=== PATIENT | male | born 1950 | race Caucasian/White ===

== ENCOUNTER 2021-07-24 09:52 | Outpatient (REF) | payer MEDICARE, BC, SELFPAY ==
--- NOTE | ~2021-07-24 | XR_ITS ---
EXAMINATION: CHEST AND LUMBAR SPINE. CLINICAL INFORMATION: Shortness of breath. COMPARISON: None TECHNIQUE: Chest 2 views. Lumbar spine 3 views. FINDINGS: Chest: The lungs are well-expanded and clear. The heart size and pulmonary vascularity is normal. No gross bony abnormality seen. Lumbar spine: There is normal lumbar lordosis. There is mild loss of L1 vertebral height. Rest of the vertebral heights are normal. There is loss of L5-S1 disc height. Mild lateral spondylosis at L3-L4 disc level is noted. XR/XR chest 1V IMPRESSION: Unremarkable chest exam. Minimal the disc changes L5-S1 disc level. Mild superior endplate deformity L1 vertebra of indeterminate age. No lytic or sclerotic process seen.
--- NOTE | ~2021-07-24 | XR_ITS ---
EXAMINATION: XR BILATERAL HIPS WITH AP PELVIS CLINICAL INFORMATION: Left hip pain. COMPARISON: None TECHNIQUE: AP and frog-leg lateral views of each hip and an AP view of the pelvis. FINDINGS: There is mild to moderate osteophytes in both hips, characterized by marginal osteophytes and medial joint space narrowing with subarticular sclerosis. There is borderline coxa vara in the proximal femurs bilaterally. No acute fractures. SI joints and pubic symphysis are normal. Mild degenerative spondylosis in the lower lumbar spine. There is a 1.4 cm focus of calcification at the right ischial tuberosity. Bone mineralization is normal. XR/XR hips SATYA min 3V IMPRESSION: Mild to moderate osteochondritis in both hips. A 1.4 cm focus of calcific tendinitis at the hamstring tendon origin on the right ischial tuberosity.
--- NOTE | ~2021-07-24 | XR_ITS ---
EXAMINATION: CHEST AND LUMBAR SPINE. CLINICAL INFORMATION: Shortness of breath. COMPARISON: None TECHNIQUE: Chest 2 views. Lumbar spine 3 views. FINDINGS: Chest: The lungs are well-expanded and clear. The heart size and pulmonary vascularity is normal. No gross bony abnormality seen. Lumbar spine: There is normal lumbar lordosis. There is mild loss of L1 vertebral height. Rest of the vertebral heights are normal. There is loss of L5-S1 disc height. Mild lateral spondylosis at L3-L4 disc level is noted. XR/XR lumbar spine 2-3V IMPRESSION: Unremarkable chest exam. Minimal the disc changes L5-S1 disc level. Mild superior endplate deformity L1 vertebra of indeterminate age. No lytic or sclerotic process seen.
[2021-07-24 10:50] LABS: Appearance Urine CLEAR; Color Urine YELLOW; Glucose Urine UA NEG (NEG); Leukocyte Esterase Urine NEG (NEG); Nitrite Urine NEG (NEG); Urine Blood NEG (NEG); Urine Ketones NEG (NEG); Urine Protein NEG (NEG-TRACE)
[2021-07-24 10:51] LABS: Hematocrit 45.6 % (42.0-52.0); Hemoglobin 15.2 g/dl (14.0-18.0); Mean Corpuscular HGB Conc 33.3 g/dl (31.0-36.0); Mean Corpuscular Volume 90.1 fL (80.0-98.0); Mean Platelet Volume 10.5 fL (9.4-12.4); Platelet Count 172 X10*3/uL (160-400); Red Blood Count 5.06 X10*6/uL (4.60-5.80); Red Cell Distribution Width 12.9 % (11.0-16.0); White Blood Count 6.3 X10*3/uL (4.8-10.8)
[2021-07-24 11:37] LABS: Alanine Aminotransferase 17 U/L (0-40); Albumin Level 4.3 g/dL (3.5-5.0); Alkaline Phosphatase 52 U/L (39-117); Anion Gap 9 (12-20); Aspartate Amino Transferase 19 U/L (5-37); Bilirubin Total 1.1 mg/dL (0.0-1.0); Blood Urea Nitrogen 13 mg/dL (9-16); Calcium 9.3 mg/dL (8.4-10.2); Carbon Dioxide 31 mmol/L (22-29); Chloride 105 mmol/L (96-108); Cholesterol 212 mg/dL; Estimated Glomerular Filt Rate > 60; Glucose Fasting 92 mg/dL (60-99); HDL Cholesterol 42 mg/dL; Iron 162 mcg/dL (45-160); LDL Cholesterol Calculated 149 mg/dl; Percent Iron Saturation 65 % (15-50); Potassium 4.3 mmol/L (3.3-5.1); Sodium 141 mmol/L (135-145); Total Iron Binding Capacity 250 mcg/dL (228-428); Total Protein 6.6 g/dL (6.5-8.0); Triglycerides 106 mg/dL; Unsaturated Iron Binding 88 ug/dL
[2021-07-24 11:46] LABS: Prostate Specific Antigen Scr 0.79 ng/mL (<0.05-4.0); TSH reflex Free T4 1.18 uIU/mL (0.32-4.0)
[2021-07-24 11:57] LABS: Folate 15.4 ng/mL (> or = 4.0); Vitamin B12 448 pg/mL (200-900)
[2021-07-24 12:18] LABS: RBC Urine 0 /HPF (0); WBC Urine 0 /HPF (0-4)
[2021-07-24 12:19] LABS: Squamous Epithelial Cell Urine TRACE /LPF
== END 2021-07-24 09:53 | disposition home or self-care (01) ==
LOC: HO.LAB 09:52
PROVIDERS: PCP Internal Medicine; Visit Provider Internal Medicine
DX: Z00.00 Encounter for general adult medical examination without abnormal findings (principal); Z12.5 Encounter for screening for malignant neoplasm of prostate; R06.02 Shortness of breath; M25.552 Pain in left hip; M54.50 Low back pain, unspecified; N40.0 Benign prostatic hyperplasia without lower urinary tract symptoms; G25.81 Restless legs syndrome
CPT/HCPCS: 36415; 71045; 72100; 73522; 80053; 80061; 81001; 82607; 82746; 83540; 84153; 84443; 85027

== ENCOUNTER 2021-08-21 15:50 | Outpatient (REF) | payer MEDICARE, SELFPAY ==
--- NOTE | ~2021-08-21 | US_ITS ---
EXAMINATION: US PELVIS LIMITED (BLADDER) CLINICAL INFORMATION: Benign prostatic hyperplasia without lower urinary tract symptoms. COMPARISON: None TECHNIQUE: Real-time imaging of the bladder. FINDINGS: BLADDER: Well distended and normal. Bilateral ureteral jets are not demonstrated. Prevoid bladder volume is 192. mL. Postvoid bladder volume is 7.0 mL. ADDITIONAL FINDINGS: Prostate volume is 42 mL US/US bladder IMPRESSION: No significant postvoid residual..
== END 2021-08-21 15:51 | disposition home or self-care (01) ==
LOC: HO.US 15:50
PROVIDERS: PCP Internal Medicine; Visit Provider Internal Medicine
DX: Z00.00 Encounter for general adult medical examination without abnormal findings (principal); J32.9 Chronic sinusitis, unspecified; N40.0 Benign prostatic hyperplasia without lower urinary tract symptoms
CPT/HCPCS: 76857

== ENCOUNTER 2021-09-03 12:51 | Outpatient (RCR) | payer MEDICARE, SELFPAY | END 2022-01-10 11:19 | disposition home or self-care (01) | LOC: HO.PTWFD 12:51 | PROVIDERS: Visit Provider Internal Medicine | DX: M25.552 Pain in left hip (principal) ==

== ENCOUNTER 2021-10-29 12:50 | Outpatient (REF) | payer MEDICARE, SELFPAY ==
[2021-11-02 16:25] LABS: Vitamin D 25-OH, D2 <4 ng/mL; Vitamin D 25-OH, D3 31 ng/mL; Vitamin D 25-OH, Total 31 ng/mL (30-100)
== END 2021-10-29 12:51 | disposition home or self-care (01) ==
LOC: HO.LAB 12:50
PROVIDERS: PCP Internal Medicine; Referring Provider Internal Medicine; Visit Provider Nurse Practitioner Family
DX: Z01.818 Encounter for other preprocedural examination (principal); N40.0 Benign prostatic hyperplasia without lower urinary tract symptoms; E55.9 Vitamin D deficiency, unspecified; R53.83 Other fatigue; K59.00 Constipation, unspecified
CPT/HCPCS: 36415; 82306; 84443; 99202

== ENCOUNTER 2021-11-08 13:42 | Outpatient (REF) | payer MEDICARE, SELFPAY | END 2021-11-08 13:43 | disposition home or self-care (01) | LOC: HO.LAB 13:42 | PROVIDERS: Visit Provider Otolaryngology | DX: J30.89 Other allergic rhinitis (principal) | CPT/HCPCS: 36415; 82785; 86003 ==

== ENCOUNTER 2021-12-27 13:00 | Outpatient (RCR) | payer MEDICARE, SELFPAY ==
[2021-12-13 11:21] VITALS: BP 112/68; PULSE 78; O2SAT 95
== END 2022-03-04 14:31 | disposition home or self-care (01) ==
LOC: HO.PTWFD 13:00
PROVIDERS: Visit Provider Internal Medicine
DX: M25.552 Pain in left hip (principal)
CPT/HCPCS: 97110; 97140; 97162

== ENCOUNTER → 2022-01-29 13:17 | Outpatient (BNVA) | payer MEDICARE, SELFPAY | PROVIDERS: PCP Internal Medicine; Referring Provider Nurse Practitioner Family; Visit Provider Internal Medicine | DX: Z01.810 Encounter for preprocedural cardiovascular examination (principal); R06.02 Shortness of breath; R07.2 Precordial pain | CPT/HCPCS: 93005; 99202 ==

== ENCOUNTER → 2022-02-18 13:33 | Outpatient (BNVA) | payer MEDICARE, SELFPAY | PROVIDERS: Visit Provider Urology | DX: N40.1 Benign prostatic hyperplasia with lower urinary tract symptoms (principal); Z79.899 Other long term (current) drug therapy | CPT/HCPCS: 51798; 99202 ==

== ENCOUNTER → 2022-03-10 10:26 | Outpatient (REF) | payer MEDICARE, SELFPAY ==
--- NOTE | 2022-03-10 10:28 | CA_ITS ---
Transthoracic Echocardiogram Patient (Last, First, Middle): Oswaldo Hernandez, Gender: Male Date of : 1950 Age: 71 Procedure Date: 03/10/2022 Procedure Type: Transthoracic Echocardiogram Location: OP Height: 187.96 cm Weight: 106.6 kg BSA: 2.33 m2 Heart Rate: bpm BP: 124 / 80 mmHg Solar System Designer: Referring MD: Prince Dumont MD Symptoms: Z01.810 - Encounter for preprocedural cardiovascular examination Study Quality: Fair, ADEQUATE W DEFINITY ECG Rhythm: Sinus Conclusions: - The left ventricular systolic function is normal. The visually estimated ejection fraction is between 60-65%. - No obvious valvular pathology seen on this study. Findings Procedure Information Contrast agent, definity, is being given per protocol without apparent complications. Left Ventricle Normal left ventricular cavity size. There is mildly increased left ventricular wall thickness. The left ventricular systolic function is normal. The visually estimated ejection fraction is between 60-65%. There is no evidence of regional wall motion abnormalities. Diastolic function is normal for age. Right Ventricle Normal right ventricular cavity size and systolic function. Atria Both atria are normal in size. Aortic Valve There is a normal trileaflet aortic valve. There is no aortic valve stenosis. There is no aortic valve regurgitation. Mitral Valve The mitral valve appears normal. There is no mitral valve regurgitation. There is no mitral valve stenosis. Pulmonic Valve The pulmonic valve is likely normal. Tricuspid Valve There is trace tricuspid valve regurgitation. There is no evidence of pulmonary hypertension. Great Vessels Top normal ascending aortic size at 3.9-4 cm. Venous The inferior vena cava is normal in size and collapses greater than 50% with inspiration. Pericardium/Pleural There is no evidence of pericardial effusion. Prior Study Comparison No prior study available for comparison. Recommendations, Care & Conclusions No obvious valvular pathology seen on this study. Measurements 2D Linear Measurements IVSd: 1.26 0.6-0.9/0.6-1.0 cm LVIDd: 5.33 3.9-5.3/4.2-5.9 cm LVIDd Index: 2.29 2.4-3.2/2.2-3.1 cm/m2 LVIDs: 3.43 2.0-3.6 cm LVPWd: 1.24 0.7-1.1 cm Ao Root: 4.00 2.1-3.5 cm LA Diam: 3.00 2.7-3.8/3.0-4.0 cm LAIDs Index: 1.29 1.5-2.3 cm/m2 LV Mass: 341.77 67-162/88-224 g LV Mass Index: 146.68 43-95/49-115 g/m2 LVOT Diam: 2.30 3.0+(-)1.3 cm 2D Systolic Function EF 4C: 66.90 >55% EF 2C: 77.10 >55% EF BiP: 70.80 >55% Mitral Valve MV Pk E: 0.54 MV PK A: 0.74 MV Decel Time: 224.00 E/A: 0.70 E'Lateral: 7.07 E'Medial: 5.66 E/E' Med: 9.50 E/E' Lat: 7.60 PHT: 65.00 MVA PHT: 3.38 Decel Garza: 2.40 Aortic Valve AoV Pk Phuc: 1.43 AoV Mn Phuc: 0.97 AoV VTI: 0.33 AoV Pk Grad: 8.00 Aov Mn Grad: 4.00 CARLEEN Cont.VTI: 2.53 LVOT LVOT Pk Phuc: 0.80 LVOT Mn Phuc: 0.61 LVOT VTI: 0.20 LVOT Pk Grad: 3.00 LVOT Mn Grad: 2.00 LVOT Diam: 2.30 LVOT Area: 4.15 Diastolic Function MV Pk E: 0.54 MV Pk A: 0.74 E/A: 0.70 E'Medial: 5.66 E/E' Med: 9.50 E' Laterial: 7.07 E/E' Lat: 7.60 Right Ventricle TAPSE (mm): 27.50 TVS' Phuc: 11.40 Tricuspid Valve TR Pk Phuc: 1.82 TR Pk Grad: 13.00 RA Press: 3.00 RVSP: 16.00 Great Vessels Aorta Ao Root-2D: 4.00 2.0-3.7 cm Ao Asc: 4.00 2.1-3.4 cm Pulmonary Valve PV Pk Phuc: 0.96 Peak PV Grad: 4.00 Updated in Other Vendor System with Status of Final Prince Dumont MD electronically signed on 03/11/2022 12:59:55 PM with status of Final
== END ==
LOC: HO.CARD 10:26
PROVIDERS: PCP Family Medicine; Visit Provider Internal Medicine
DX: Z01.810 Encounter for preprocedural cardiovascular examination (principal)
CPT/HCPCS: 93306; Q9957

== ENCOUNTER → 2022-03-11 09:41 | Outpatient (REF) | payer MEDICARE, SELFPAY ==
--- NOTE | ~2022-03-11 | NM_ITS ---
Myocardial perfusion study Indication: Preoperative cardiovascular risk stratification Technique: The patient was brought in for a Lexiscan perfusion study on 03/11/2022. Patient performed low-level exercise and was injected 0.4 mg of Lexiscan intravenously. Within a minute of injection, 30 mCi of sestamibi was given intravenously. Images were obtained using the SPECT gamma camera interlaced with the gating device. Images were obtained in supine position. Resting perfusion study was performed on 03/13/2022. Patient was administered 30 mCi of sestamibi intravenously at rest. Images were then obtained in supine position. Images obtained with and without CT attenuation. Total DLP 122 mGy-cm. Images were processed with the software and compared side to side in short axis, horizontal long axis and vertical long axis views. Findings: The stress perfusion study showed non attenuated images show mildly to moderately reduced uptake in the inferior and adjacent inferolateral and inferoseptal wall of the LV myocardium. Remainder of the LV myocardium is normally perfused. Attenuation corrected images show mildly reduced uptake in the apex of the LV myocardium.. The gated study shows normal LV systolic function with calculated LVEF of 66%. LV cavity is normal in size. The gated study shows normal systolic wall thickening and contraction of segments. Resting study shows no change in perfusion pattern compared to stress perfusion study. Gating at rest reveals normal systolic wall motion with ejection fraction at greater than 70 %. The findings are consistent with no clear reversible defect. Most likely normal myocardial perfusion.. NM/NM cardiolite stress test Impression: 1. Myocardial perfusion imaging study shows normal myocardial perfusion 2. Gated LVEF is 66% 3. Transient ischemic dilatation not present EKG is nondiagnostic for ischemia
--- NOTE | 2022-03-11 09:44 | CA_ITS ---
Acquisition Time: 2022-03-11 10:00:22 Total Exercise Time: 00:02:00 Test Indications: Dyspnea Medications: TAMSULOSIN Protocol: LEXISCAN Max HR: 114 BPM 76% of Pred: 150 BPM Max BP: 122/078 mmHG Max Work Load: 1.6 METS Pharmacological stress test with Lexiscan injection, while walking slow on treadmill, without anginal symptoms, without arrythmia, with normotensive response to injection, with nondiagnostic EKG for ischemia. In recovery he reported feeling off balance and was treated with Aminophylline 75mg IVP to reverse Lexiscan with resolution of symptom. Nuclear images pending. Test reviewed with Dr Dumont Referred By: Prince Dumont Overread By: ALEXX CH
== END ==
LOC: HO.CARD 09:41
PROVIDERS: PCP Family Medicine; Visit Provider Internal Medicine
DX: Z01.810 Encounter for preprocedural cardiovascular examination (principal); R07.2 Precordial pain; R06.02 Shortness of breath
CPT/HCPCS: 78452; 93017; A9500; J0280; J2785

== ENCOUNTER 2022-04-03 09:24 | Outpatient (REF) | payer MEDICARE, SELFPAY ==
[2022-04-03 10:55] LABS: MANUAL DIFF FLAG NO
[2022-04-03 11:10] LABS: Basophils Absolute Auto 0.1 X10*3/uL (0.0-0.2); Basophils Percent Auto 0.9 % (0-2); Eosinophils Absolute Auto 0.3 X10*3/uL (0.0-0.4); Eosinophils Percent Auto 4.7 % (0-4); Hematocrit 46.6 % (42.0-52.0); Hemoglobin 15.6 g/dl (14.0-18.0); Imm Gran Abs Auto 0.03 X10*3/uL (0.00-0.03); Imm Gran Pct Auto 0.5 % (0.0-0.4); Lymphocytes Percent Auto 34.4 % (20-40); Mean Corpuscular HGB Conc 33.5 g/dl (31.0-36.0); Mean Corpuscular Hemoglobin 29.8 pg (27.0-33.0); Mean Corpuscular Volume 89.1 fL (80.0-98.0); Mean Platelet Volume 10.7 fL (9.4-12.4); Monocytes Absolute Auto 0.7 X10*3/uL (0.1-1.2); Monocytes Percent Auto 11.8 % (2-11); Neutrophils Absolute Auto 2.7 x10*3/uL (2.0-8.3); Neutrophils Percent Auto 47.7 % (45-73); Platelet Count 173 X10*3/uL (160-400); Red Blood Count 5.23 X10*6/uL (4.60-5.80); Red Cell Distribution Width 13.1 % (11.0-16.0); White Blood Count 5.7 X10*3/uL (4.8-10.8)
[2022-04-03 11:39] LABS: Alanine Aminotransferase 23 U/L (0-40); Albumin Level 4.4 g/dL (3.5-5.0); Alkaline Phosphatase 53 U/L (39-117); Anion Gap 14 (12-20); Aspartate Amino Transferase 24 U/L (5-37); Bilirubin Total 0.9 mg/dL (0.0-1.0); Blood Urea Nitrogen 18 mg/dL (9-16); Calcium 9.2 mg/dL (8.4-10.2); Chloride 102 mmol/L (96-108); Cholesterol 237 mg/dL; Estimated Glomerular Filt Rate > 60; Glucose Fasting 91 mg/dL (60-99); HDL Cholesterol 49 mg/dL; LDL Cholesterol Calculated 165 mg/dl; Potassium 4.3 mmol/L (3.3-5.1); Sodium 141 mmol/L (135-145); Total Protein 6.9 g/dL (6.5-8.0); Triglycerides 116 mg/dL
[2022-04-03 11:41] LABS: Carbon Dioxide 29 mmol/L (22-29)
[2022-04-03 12:04] LABS: TSH reflex Free T4 1.36 uIU/mL (0.32-4.0)
== END 2022-04-03 09:25 | disposition home or self-care (01) ==
LOC: HO.WFDLDS 09:24
PROVIDERS: Visit Provider Family Medicine
DX: Z00.00 Encounter for general adult medical examination without abnormal findings (principal); Z13.220 Encounter for screening for lipoid disorders; Z13.29 Encounter for screening for other suspected endocrine disorder
CPT/HCPCS: 36415; 80053; 80061; 83735; 84443; 85025

== ENCOUNTER 2022-05-02 13:35 | Outpatient (AMB) | payer MEDICARE, SELFPAY ==
--- NOTE | 2022-05-02 13:37 | A.OFFVIS_ITS ---
Intake Intake Visit Reasons: BPH- 2m follow up/PVR Intake Note: Patient is present for PVR Follow Up Urology Medication: tamsulosin Blood Thinner: none Post Void Residual: 0 Allergies Seasonal Allergies Allergy (Verified 01/21/23 13:07) Itchy Eyes Medication List - Last Reconciled 05/02/22 by Julian Robert MD clobetasol 0.05% topical doxazosin 4 mg PO BEDTIME 90 days ketorolac 0.5% drps ophthalmic (eye) magnesium oxide 400 mg PO DAILY magnesium oxide 400 mg PO DAILY multivitamin with minerals 1 cap PO DAILY oxybutynin chloride ER 5 mg PO DAILY 90 days tadalafil 5 mg PO DAILY 90 days tamsulosin 0.8 mg (2 x 0.4 mg) PO BEDTIME 90 days HPI HPI Comments History of Present Illness Details David is a very pleasant [place] male. He is a patient of Dr. Gomez. He is seen for the following urologic conditions - lower urinary tract symptoms - overactive bladder - erectile dysfunction Polyps translation provided in office Increase oxybutynin Lower urinary tract symptoms Initial symptoms include nocturia and urgency Switch to doxazosin 4 mg Erectile dysfunction Given combination lower urinary tract symptoms suggest tadalafil 5 mg daily Overactive bladder Urgency with tap Trial oxybutynin low-dose [facility] Medical History Annual physical exam BPH (benign prostatic hyperplasia) Cataract Hearing loss Hip pain, left Lower back pain Rash RLS (restless legs syndrome) Sinusitis SOB (shortness of breath) Tubular adenoma Surgical History History of cataract surgery Hx of colonoscopy Family History Mother Diabetes Father Diabetes Liver cancer Social History Household Members Other:: , s/p CVA Housing: House Are you a primary personal carer to a significant other at home: Yes ( s/p CVA) Patient Tobacco Use Status: Never used Tobacco e-Cigarette/Vaping Use: Never Used Second Hand Smoke Exposure: No service: No Current occupational status: retired Current occupational exposures/hazards: No Cognitive needs: No Hearing needs: Yes (hearing) Vision needs: Yes (reading glasses) Review of Systems Const Denies chills and Denies fever(s) Card Reports no additional complaints and Denies syncope Resp Denies cough GI Denies abdominal pain and Denies heartburn Reports as per HPI and Denies change in libido Neuro Denies syncope Psych Denies change in libido Endo Denies change in libido Physical Exam Const General: cooperative, healthy appearing, comfortable and no acute distress Orientation/consciousness: patient oriented x3 HEENT Face and sinus: Yes normal facial exam Mouth: moist mucous membranes Neck Neck: Yes normal visual inspection, Yes full ROM and Yes trachea midline Chest Chest palpation & inspection: normal inspection of the chest Resp Effort & Inspection: normal respiratory effort, able to speak in complete sentences and no respiratory distress GI Inspection: Yes normal to inspection Back/Spine/Pelvis Cervical Spine: normal cervical lordosis Thoracic/Lumbar Spine: thoracic and lumbar spine normal to inspection Skin General skin exam: no rashes or lesions noted Neuro General: patient oriented x3, gait normal, tone normal and moves all extremities Extrem General: Yes normal to inspection and Yes capillary refill normal Office Procedures Post Void Residual Post Residual Void Post Void Residual (PVR): 0 [id number] Void Residual by ultrasound Results AMB Urinalysis, Automated UA Leukoctes 0 Tammy/uL Last Edit by OJ Stewart on 05/02/22 13:50 UA Nitrite Negative Last Edit by Violeta Sen [facility] on 05/02/22 13:50 UA Urobilinogen 0.2 mg/dL Last Edit by Violeta Sen [facility] on 05/02/22 13:5 0 UA Protein 0 mg/dL Last Edit by Violeta Sen [facility] on 05/02/22 13:50 UA pH 6.0 Last Edit by Violeta Sen [facility] on 05/02/22 13:50 UA Blood 0 Frankie/uL Last Edit by Violeta Sen [facility] on 05/02/22 13:50 UA Specific [place] 1.015 Last Edit by Violeta Sen [facility] on 05/02/22 13: 50 UA Ketone Negative Last Edit by Violeta Sen [facility] on 05/02/22 13:50 UA Bilirubin 0 mg/dL Last Edit by OJ Stewart on 05/02/22 13:50 UA Glucose 100 mg/dL Last Edit by OJ Stewart on 05/02/22 13:50 Results Reviewed Results Reviewed: Laboratory Last Values Urine pH (Auto) 6.0 05/02/22 13:39 Specific [place] (Auto) 1.015 05/02/22 13:39 Urine Protein (Auto) 0 mg/dL 05/02/22 13:39 Glucose (UA)(Auto) 100 mg/dL 05/02/22 13:39 Urine Ketones (Auto) Negative 05/02/22 13:39 Urine Blood (Auto) 0 Frankie/uL 05/02/22 13:39 Urine Nitrite (Auto) Negative 05/02/22 13:39 Urine Bilirubin (Auto) 0 mg/dL 05/02/22 13:39 Urine Urobilinogen (Auto) 0.2 mg/dL 05/02/22 13:39 Leukocyte Esterase (Auto) 0 Tammy/uL 05/02/22 13:39 Assessment & Plan Assessment & Plan (1) Erectile dysfunction: Code(s): N52.9 - Male erectile dysfunction, unspecified (2) Overactive bladder: Code(s): N32.81 - Overactive bladder (3) BPH (benign prostatic hyperplasia): Code(s): N40.0 - Benign prostatic hyperplasia without lower urinary tract symptoms Plan Combination medication Three month follow-up Orders: Orders AMB Urinalysis Automated 05/02/22 Z13.9 - Encounter for screening, unspecified AMB Post Void Residual by ultrasound 05/02/22 N40.0 - Benign prostatic hyperplasia without lower urinary tract symptoms Medications: New oxybutynin chloride ER 5 mg PO DAILY 90 tabs 1RF 90 days N32.81 - Overactive bladder, N31.9 - Neuromuscular dysfunction of bladder, unspecified, R39.15 - Urgency of urination doxazosin 4 mg PO BEDTIME 90 tabs 1RF 90 days N40.1 - Benign prostatic hyperplasia with lower urinary tract symptoms, N13.8 - Other obstructive and reflux uropathy tadalafil 5 mg PO DAILY 90 tabs 1RF sexual activity 90 days N52.9 - Male erectile dysfunction, unspecified, N52.01 - Erectile dysfunction due to arterial insufficiency Patient Instructions: Imaging studies, laboratory and physical exam results were discussed and reviewed in detail. No major barriers to patient understanding were identified. An opportunity to ask questions regarding the treatment plan was provided. All questions were answered. The patient expressed understanding and agreement with the above treatment plan. The patient is aware they should contact our office by phone for worsening of their current condition or the appearance of new urologic symptoms. Compliance is encouraged with any medications and followup testing that is ordered. It is a privilege to participate in the urologic care of your patient. If you have any questions or concerns regarding treatment for the above conditions, or other urologic issues, please do not hesitate to contact me. The office telephone contact is [phone]. This note is constructed using voice recognition software. While every effort has been made to ensure accuracy molding machine operator errors may have been included. Yours sincerely, Dr Julian Robert MD, [facility] - Urology Providers of Expert, Compassionate Care for the Genitourinary System Coding Level of Care Code Est Pt Level 4 (81177) Diagnoses Erectile dysfunction N52.9 Overactive bladder N32.81 BPH (benign prostatic hyperplasia) N40.0 CPT Codes Post Residual Void - PVR CPT Code: 51224-Jxto Void Residual by ultrasound ([id number])
== END 2022-05-02 14:09 | disposition home or self-care (01) ==
LOC: HO.HUSH 13:35
PROVIDERS: PCP Family Medicine; Visit Provider Urology
DX: N52.9 Male erectile dysfunction, unspecified (principal); N32.81 Overactive bladder; N40.0 Benign prostatic hyperplasia without lower urinary tract symptoms
CPT/HCPCS: 99214

== ENCOUNTER → 2022-05-02 13:35 | Outpatient (BNVA) | payer MEDICARE, SELFPAY | PROVIDERS: PCP Family Medicine; Visit Provider Urology | DX: N40.0 Benign prostatic hyperplasia without lower urinary tract symptoms (principal); N52.9 Male erectile dysfunction, unspecified; N32.81 Overactive bladder | CPT/HCPCS: 51798; 99212 ==

== ENCOUNTER 2022-06-30 12:38 | Day surgery (SDC) | payer MEDICARE, SELFPAY ==
--- NOTE | 2022-06-30 13:06 | MHC.SHP ---
Pre-Procedural Eval Section A Date of Service: 06/30/22 The patient is an INPATIENT: No The History & Physical has been completed within 30 days and I have reviewed it.: No Section B Chief Complaint: screening Details of Present Illness: colon cancer screening Relevant Family History (Specify if Yes): No Relevant Social History: None Present Medications: see Short Stay Collaborative assessment Medical History: Significant History (BPH (benign prostatic hyperplasia) Cataract Hearing loss Hip pain, left Lower back pain Rash RLS (restless legs syndrome) Sinusitis) History of Previous Operations: No relevant previous surgery Allergies: Allergies Allergy/AdvReac Type Severity Reaction Status Date / Time Seasonal Allergies Allergy Itchy Eyes Verified 05/29/22 13:19 Review of Systems Sugical H&P ROS: Negative: Constitution, Cardiovascular, Respiratory and Gastrointestinal Exam Surgical H&P Exam: Normal: Heart, Normal: Lungs, Normal: Extremities and Normal: Abdomen Plan Diagnosis/Plan: Unchanged I have reviewed the history and physical and performed a pertinent physical examination on my patient. No changes have occurred unless specified. Time Spent With Patient Time: Total time managing care of this patient today ____ minutes.
[2022-06-30 13:15] VITALS: BMI 30.5
--- NOTE | 2022-06-30 13:21 | HO.ANESPROP2 ---
[facility] Active Problems Active Problems: All Active Problems (Updated 05/29/22 @ 13:46 by Augusto Chambers) Fatigue (Acute) GERD (gastroesophageal reflux disease) (Acute) Screening for prostate cancer (Acute) Screening for colon cancer (Acute) Hyperlipidemia (Acute) Erectile dysfunction (Acute) Overactive bladder (Acute) Unsteady gait (Acute) Imbalance (Acute) Bilateral hearing loss (Acute) Laboratory exam ordered as part of routine general medical examination (Acute) BPH loc w urin obs/LUTS (Acute) Precordial chest pain (Acute) Preoperative cardiovascular examination (Acute) Cataract (Acute) Sinusitis (Acute) SOB (shortness of breath) (Acute) Lower back pain (Acute) Hip pain, left (Acute) RLS (restless legs syndrome) (Acute) BPH (benign prostatic hyperplasia) (Acute) Annual physical exam (Acute) Rash (Acute) Hearing loss (Acute) Past Medical History Medical History Annual physical exam BPH (benign prostatic hyperplasia) Cataract Hearing loss Hip pain, left Lower back pain Rash RLS (restless legs syndrome) Sinusitis SOB (shortness of breath) Family History Family History Mother Diabetes Father Diabetes Liver cancer Family history of problems with anesthesia: No Surgical History Surgical History History of cataract surgery History of Problems with Anesthesia: No Social History Social History Household Members Other:: , s/p CVA Housing: House Are you a primary primary care nurse practitioner to a significant other at home: Yes ( s/p CVA) Patient Tobacco Use Status: Never used Tobacco e-Cigarette/Vaping Use: Never Used Second Hand Smoke Exposure: No Advance Directives: No Advance Directives Information Provided: Yes service: No Current occupational status: retired Current occupational exposures/hazards: No Cognitive needs: No Hearing needs: Yes (hearing) Vision needs: Yes (reading glasses) Meds Allergies Allergy/AdvReac Type Severity Reaction Status Date / Time Seasonal Allergies Allergy Itchy Eyes Verified 05/29/22 13:19 Home Medications Medication Instructions Recorded Confirmed Last Taken Type multivitamin with minerals 1 cap PO DAILY 03/18/22 05/02/22 Unknown History clobetasol 0.05 % scalp solution topical 04/28/22 05/02/22 Unknown History magnesium oxide 400 mg (241.3 mg 400 mg PO DAILY 04/28/22 05/02/22 Unknown History magnesium) tablet ketorolac 0.5 % eye drops drp ophthalmic (eye) 05/02/22 05/02/22 Unknown History Exam Exam Date and Time: June 30, 2022 1321 Height,Weight and Vital Signs: Height 6 ft 2 in Weight 107.955 kg Airway Mallampati Class: II TM Dist: >3cm Neck ROM: Full Denture: Upper and Lower Heart: rrr Lungs: cta Assessment and Plan Assessment Anesthesia Assessment: Anesthesia Plan Discussed and Chart Reviewed Final Anesthetic Review Family History of Problems with Anesthesia: No History of Problems with Anesthesia: No NPO: Yes ASA Class: II Final Preanesthetic Review: No Changes in Pt Med Stat, Meds/Allgs Chart Reviewed and Consent Obtained/Reviewed Patient Risk: Intermediate Procedure Risk: Intermediate Anesthetic Plan Anesthetic Plan: MAC: Disposition: Standard PACU
[2022-06-30 13:47] VITALS: BP 111/64; PULSE 57; RESP 16; TEMP 36.9; O2SAT 92
--- NOTE | 2022-06-30 13:48 | PM.OP ---
Brief Operative Note Date of Service: 06/30/22 Pre-op diagnosis: colon cancer screening Post-op diagnosis: other ( colon polyps, diverticulosis, hemorrhoids) Procedure: COLONOSCOPY TO CECUM WITH BIOPSIES AND SNARE POLYPECTOMY Surgeon: Shyann Anne MD Anesthesia: MAC Was an Supervisor Sewing [employer] used for this Procedure?: Yes Supervisor [employer]ing Department: [employer] [place] Estimated blood loss (mL): 0 Pathology: other (A. cecal polyp B. ascending colon polyps (2) C. transverse colon polyp D. sigmoid polyp) Condition: stable Disposition: PACU
--- NOTE | 2022-06-30 13:52 | W.PM.OPN ---
Operative Note Operative Note Date of Service: 06/30/22 Narrative: Pre-op diagnosis: colon cancer screening (first colonoscopy) Post-op diagnosis:?other ( colon polyps, diverticulosis, hemorrhoids) Surgeon: Shyann Anne MD Anesthesia:?MAC COLONOSCOPY TILL CECUM WITH BIOPSIES AND SNARE POLYPECTOMY Consent: Indications for the procedure and potential complications of bleeding, perforation, reaction to medications and missed diagnosis were discussed with the patient with the help of a Vietnamese english language learner tutor and informed consent was obtained. Instrument: Olympus CF H 190 L variable stiffness adult colonoscope Monitoring: Vital signs and clinical assessment, intermittent blood pressure monitoring, continuous EKG monitoring, Pulse oximetry and Carbon Dioxide monitoring were done throughout the procedure. Colon withdrawl time was 23 minutes. Procedure: The patient was placed in the left lateral decubitis position and pre-procedure medications were administered. After a digital rectal examination of the ano-rectum, the video colonoscope was inserted into the rectum and advanced through the colon to the cecum. The colonoscope was slowly withdrawn in a retrograde panoramic fashion and the colon mucosa was carefully examined including a retroflexed view of the rectum. Findings and interventions are described below. Procedure Difficulty: colon was long and there was some loop formation - no maneuvers were required Findings: Terminal Ileum: Not evaluated Cecum: A 3-4 mm diminutive appearing polyp removed with the cold biopsy Ascending Colon: Two 4-5 mm sessile polyps - removed with a cold biopsy Transverse Colon: A 10 mm sessile polyp - removed with a cold snare Descending Colon: moderate diverticulosis Sigmoid Colon: A 7-8 mm sessile polyp removed with a cold snare. Moderate diverticulosis Rectum: Normal Ano-rectum: Moderate internal hemorrhoids Colon preparation: Good in the left colon after some irrigation and Fair in the right colon due to undigested vegetable matter which could not be suctioned despite copious irrigation. Impression and Post Procedure Diagnosis: Colonoscopy Findings: Five small to medium sized polyps removed Moderate diverticulosis seen in the left colon Moderate hemorrhoids on retroflexed exam. Prep was good in the left colon after some irrigation and Fair in the right colon due to undigested vegetable matter which could not be suctioned despite copious irrigation. (pt had solid food for lunch yesterday around noon) Plan: Await pathology results Patient has an appointment on 07/14/22 in the [facility] with Luz Ricardo FNP-BC. Repeat Colonoscopy interval based on path results - in 3 years if polyps are adenomatous and due to fair prep in the right colon (Pt needs to stay on a clear liquid diet after a light breakfast the day prior to the procedure and take Dulcolax 2 tablets daily starting 3 days prior to colonoscopy appointment). Above findings were reviewed with the patient with the help of a Vietnamese english language learner tutor and colon polyps and diverticulosis handouts were given in the discharge area
[2022-06-30 14:40] VITALS: BP 106/54; PULSE 64; RESP 16; TEMP 36.7; O2SAT 98
[2022-06-30 14:55] VITALS: BP 110/62; PULSE 46; RESP 16; O2SAT 95
[2022-06-30 15:10] VITALS: BP 107/65; PULSE 56; RESP 16; TEMP 36.6; O2SAT 94
== END 2022-06-30 16:01 | disposition home or self-care (01) ==
PROVIDERS: Visit Provider Internal Medicine Gastroenterology
PROC: 0DJD8ZZ Inspection of Lower Intestinal Tract, Via Natural or Artificial Opening Endoscopic (ICD-10-PCS; CPT 45378; principal; 2022-06-30 13:30)
DX: Z12.11 Encounter for screening for malignant neoplasm of colon (principal); D12.3 Benign neoplasm of transverse colon; K63.5 Polyp of colon; K57.30 Diverticulosis of large intestine without perforation or abscess without bleeding; K64.8 Other hemorrhoids; K59.04 Chronic idiopathic constipation; N40.0 Benign prostatic hyperplasia without lower urinary tract symptoms; H91.90 Unspecified hearing loss, unspecified ear; J30.2 Other seasonal allergic rhinitis
CPT/HCPCS: 45385; 45380; 88305

== ENCOUNTER → 2022-07-14 13:11 | Outpatient (BNVA) | payer MEDICARE, SELFPAY | PROVIDERS: Visit Provider Nurse Practitioner Family | DX: D12.3 Benign neoplasm of transverse colon (principal); K63.5 Polyp of colon; K57.30 Diverticulosis of large intestine without perforation or abscess without bleeding; Z98.890 Other specified postprocedural states | CPT/HCPCS: 99212 ==

== ENCOUNTER 2022-07-15 11:11 | Outpatient (REF) | payer MEDICARE, SELFPAY ==
[2022-07-15 15:35] LABS: Alanine Aminotransferase 15 U/L (0-40); Albumin Level 4.4 g/dL (3.5-5.0); Alkaline Phosphatase 60 U/L (39-117); Anion Gap 14 (12-20); Aspartate Amino Transferase 20 U/L (5-37); Bilirubin Total 0.8 mg/dL (0.0-1.0); Blood Urea Nitrogen 15 mg/dL (9-16); Calcium 9.3 mg/dL (8.4-10.2); Carbon Dioxide 26 mmol/L (22-29); Chloride 106 mmol/L (96-108); Estimated Glomerular Filt Rate > 60; Glucose Random 95 mg/dL (60-115); Iron 125 mcg/dL (45-160); Percent Iron Saturation 48 % (15-50); Potassium 4.1 mmol/L (3.3-5.1); Prostate Specific Antigen Scr 1.12 ng/mL (<0.05-4.0); Sodium 142 mmol/L (135-145); TSH reflex Free T4 1.15 uIU/mL (0.32-4.0); Total Iron Binding Capacity 263 mcg/dL (228-428); Total Protein 6.8 g/dL (6.5-8.0); Unsaturated Iron Binding 138 ug/dL
[2022-07-15 15:49] LABS: Folate 14.4 ng/mL (> or = 4.0); Vitamin B12 742 pg/mL (200-900)
== END 2022-07-15 11:12 | disposition home or self-care (01) ==
LOC: HO.WFDLDS 11:11
PROVIDERS: Visit Provider Family Medicine
DX: Z00.00 Encounter for general adult medical examination without abnormal findings (principal); Z12.5 Encounter for screening for malignant neoplasm of prostate; R53.83 Other fatigue; E53.8 Deficiency of other specified B group vitamins
CPT/HCPCS: 36415; 80053; 82607; 82746; 83540; 84153; 84443

== ENCOUNTER 2022-08-01 10:35 | Outpatient (REF) | payer MEDICARE, SELFPAY ==
[2022-08-01 14:37] LABS: Cholesterol 217 mg/dL; HDL Cholesterol 41 mg/dL; LDL Cholesterol Calculated 147 mg/dl; Triglycerides 145 mg/dL
== END 2022-08-01 10:36 | disposition home or self-care (01) ==
LOC: HO.WFDLDS 10:35
PROVIDERS: Visit Provider Family Medicine
DX: Z00.00 Encounter for general adult medical examination without abnormal findings (principal); E78.5 Hyperlipidemia, unspecified
CPT/HCPCS: 36415; 80061

== ENCOUNTER → 2022-08-12 14:05 | Outpatient (BNVA) | payer MEDICARE, SELFPAY | PROVIDERS: PCP Family Medicine; Visit Provider Urology | DX: R33.9 Retention of urine, unspecified (principal); R35.0 Frequency of micturition | CPT/HCPCS: 51798; 99212 ==

== ENCOUNTER 2022-08-20 11:31 | Outpatient (REF) | payer MEDICARE, SELFPAY ==
[2022-08-20 14:17] LABS: Hematocrit 46.2 % (42.0-52.0); Hemoglobin 15.3 g/dl (14.0-18.0); Mean Corpuscular HGB Conc 33.1 g/dl (31.0-36.0); Mean Corpuscular Hemoglobin 29.7 pg (27.0-33.0); Mean Corpuscular Volume 89.7 fL (80.0-98.0); Mean Platelet Volume 10.9 fL (9.4-12.4); Platelet Count 168 X10*3/uL (160-400); Red Blood Count 5.15 X10*6/uL (4.60-5.80); Red Cell Distribution Width 13.2 % (11.0-16.0); White Blood Count 7.5 X10*3/uL (4.8-10.8)
[2022-08-20 14:37] LABS: Estimated Average Glucose 114 mg/dL; Hemoglobin A1c % 5.6 %
[2022-08-20 14:48] LABS: Alanine Aminotransferase 30 U/L (0-40); Albumin Level 4.3 g/dL (3.5-5.0); Alkaline Phosphatase 55 U/L (39-117); Anion Gap 14 (12-20); Aspartate Amino Transferase 32 U/L (5-37); Bilirubin Total 1.2 mg/dL (0.0-1.0); Blood Urea Nitrogen 12 mg/dL (9-16); Calcium 9.2 mg/dL (8.4-10.2); Carbon Dioxide 28 mmol/L (22-29); Chloride 107 mmol/L (96-108); Estimated Glomerular Filt Rate > 60; Glucose Fasting 101 mg/dL (60-99); Potassium 4.5 mmol/L (3.3-5.1); Sodium 144 mmol/L (135-145); Total Protein 6.7 g/dL (6.5-8.0)
== END 2022-08-20 11:32 | disposition home or self-care (01) ==
LOC: HO.WFDLDS 11:31
PROVIDERS: Visit Provider Nurse Practitioner Family
DX: M79.89 Other specified soft tissue disorders (principal); R20.0 Anesthesia of skin
CPT/HCPCS: 36415; 80053; 83036; 85027

== ENCOUNTER → 2022-10-15 13:04 | Outpatient (BNVA) | payer MEDICARE, SELFPAY | PROVIDERS: PCP Family Medicine; Visit Provider Urology | DX: N40.0 Benign prostatic hyperplasia without lower urinary tract symptoms (principal); N32.81 Overactive bladder | CPT/HCPCS: 52000; 99212 ==

== ENCOUNTER 2022-10-30 13:40 | Outpatient (REF) | payer MEDICARE, SELFPAY ==
--- NOTE | ~2022-10-30 | MR_ITS ---
MR LUMBAR SPINE WITHOUT CONTRAST CLINICAL INFORMATION: Low back pain. COMPARISON: Lumbar spine radiographs 07/24/2021. TECHNIQUE: MRI of the lumbar spine was obtained using routine sequences without contrast. FINDINGS: There are 5 nonrib-bearing lumbar-type vertebral bodies. Slight grade 1 retrolisthesis of L3 on L4 and L4 on L5. There is mild chronic upper endplate compression deformity at L1. The remaining vertebral body heights are maintained. There are no acute fractures. No bone marrow edema. Modic type II endplate signal changes at L3-L4 and L5-S1. There is mild disc volume loss at L5-S1 and the remaining disc volumes are preserved. Conus terminates at the L1 level. Left parapelvic cysts. Simple left renal cysts for which no further imaging follow-up is warranted. L1-L2: Disc contour is normal. No central canal stenosis and no foraminal stenosis. L2-L3: Diffuse annular disc bulge and moderate bilateral facet arthropathy and ligamentum flavum thickening. No central canal stenosis and no foraminal stenosis. L3-L4: Left paracentral/left lateral disc protrusion associated with an annular fissure results in posterior deflection of the traversing left L4 nerve root within the left subarticular zone and moderate left-sided foraminal stenosis with mass effect on the extraforaminal left L3 nerve root. No central canal stenosis. Mild right-sided foraminal encroachment. L4-L5: Diffuse annular disc bulge exhibiting a dorsal annular fissure and moderate bilateral facet arthropathy. No central canal stenosis. Mild foraminal encroachment bilaterally. L5-S1: Right lateral disc osteophyte protrusion results in moderate right-sided foraminal stenosis and mass effect on the extraforaminal right L5 nerve root. Shallow left paracentral disc osteophyte protrusion. No central canal stenosis. Moderate right-sided facet arthropathy. MR/MR lumbar spine wo con IMPRESSION: - At L3-L4, a left paracentral/left lateral disc protrusion associated with an annular fissure results in posterior deflection of the traversing left L4 nerve root within the left subarticular zone and moderate left-sided foraminal stenosis with mass effect on the extraforaminal left L3 nerve root. - At L5-S1, a right lateral disc osteophyte protrusion results in moderate right-sided foraminal stenosis and mass effect on the extraforaminal right L5 nerve root. - Additional spondylitic changes throughout the lumbar spine as discussed above.
== END 2022-10-30 13:41 | disposition home or self-care (01) ==
LOC: HO.MRI 13:40
PROVIDERS: PCP Family Medicine; Visit Provider Family Medicine
DX: M54.50 Low back pain, unspecified (principal)
CPT/HCPCS: 72148

== ENCOUNTER 2023-01-01 13:01 | Outpatient (AMB) | payer MEDICARE, SELFPAY ==
--- NOTE | 2023-01-01 13:16 | MHC.PC.OV ---
Vital Signs 01/01/23 13:19 Height 5 ft 2 in Weight 254 lb 8 oz BMI 46.5 BP 124/62 Blood Pressure Location Lt brachial Position Sitting Pulse 72 Pulse Source Pulse Oximeter Pulse Oximetry (%) 98 Oxygen Delivery Method Room Air Intake Visit Reasons: follow up mri /neurology Intake Note: Patient is here to follow up on MRI/ neurology. Allergies Seasonal Allergies Allergy (Verified 01/01/23 13:20) Itchy Eyes Tobacco use date assessed: 01/01/23 Fall risk assessment: No Falls in past year Last assessed Fall Risk: 01/01/23 Dental Screening Dental Screen Date: 01/01/23 Did you have a dental visit in the last 12 months?: No Did you have a dental problem in the last 6 months where you did not have access to dental care?: No Was dental information given to patient?: No HPI follow up mri /neurology HPI Details 72 y/o male presents to f/u RLE weakness. Patient had had footdrop and lower extremity weakness. Had given him an ankle-foot orthotic and started physical therapy and referred him to Neurology. Also ordered an MRI. MRI is positive for L4 5 disc protrusion on nerve. Patient says he has been improving however. Had seen Neurology 12/01/22 but pt stated he was unsure why he was there. He had stated no difficulty walking or any back pain. Nevertheless, he presents today with a walker. Has 5/5 strength in lower extremities today despite using walker. 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 Ming Hamilton, Vani Pike, Gerald Sofia and colleagues, with an educational kusum from [employer]. Physical exam (Primary Care) Vital Signs: Last Vital Signs Pulse 72 01/01/23 13:19 BP 124/62 01/01/23 13:19 Pulse Ox 98 01/01/23 13:19 Oxygen Delivery Method Room Air 01/01/23 13:19 BMI result Body Mass Index 46.5 Tobacco/Smoking Status: Tobacco use Status Tobacco use date assessed 01/01/23 01/01/23 13:26 Patient Tobacco Use Status Never used Tobacco 01/01/23 13:17 e-Cigarette/Vaping Use Never Used 01/01/23 13:17 Thrive Assessment: Date of Thrive Assessment Date Thrive assessed 07/23/21 01/01/23 13:17 Assessment and Plan Assessment & Plan (1) Lower extremity weakness: Code(s): R29.898 - Other symptoms and signs involving the musculoskeletal system Plan: Lower extremity weakness with footdrop and MRI showing L4-5 nerve impingement but patient is no longer symptomatic Likely this is resolving and inflammation from acute worsening or injury is improving. Encouraged good body mechanics and avoid back injuries. Continue to strength in lower extremities and back He will let me know if symptoms return (2) Footdrop: Code(s): M21.379 - Foot drop, unspecified foot Plan: As above (3) Lumbar foraminal stenosis: Code(s): M48.061 - Spinal stenosis, lumbar region without neurogenic claudication Plan: As above, avoid straining back He will let me know if above symptoms return. No need for neurology at this time (4) Dermatitis: Code(s): L30.9 - Dermatitis, unspecified Plan: Mild dermatitis bilateral shins and tops of feet He can use Lubriderm moisturizer OTC (5) Nutritional counseling: Code(s): Z71.3 - Dietary counseling and surveillance Plan: Patient requested counseling on vitamins and nutrients He would like vitamins prescribed Will send script for a multivitamin Medications: Changed From multivitamin with minerals 1 cap PO DAILY To multivitamin with minerals 1 cap PO DAILY 90 days 90 caps 3RF Coding Level of Care Code Est Pt Level 4 (96709) Diagnoses Lower extremity weakness R29.898 Footdrop M21.379 Lumbar foraminal stenosis M48.061 Dermatitis L30.9 Nutritional counseling Z71.3
[2023-01-01 13:19] VITALS: BP 124/62; PULSE 72; O2SAT 98; BMI 46.5
== END 2023-01-01 14:05 | disposition home or self-care (01) ==
PROVIDERS: Visit Provider Family Medicine
DX: R29.898 Other symptoms and signs involving the musculoskeletal system (principal); M21.379 Foot drop, unspecified foot; M48.061 Spinal stenosis, lumbar region without neurogenic claudication; L30.9 Dermatitis, unspecified; Z71.3 Dietary counseling and surveillance
CPT/HCPCS: 99214

== ENCOUNTER 2023-01-21 13:00 | Outpatient (AMB) | payer MEDICARE, SELFPAY ==
--- NOTE | 2023-01-21 13:05 | A.OFFVIS_ITS ---
Intake Intake Visit Reasons: 3m/PVR Intake Note: Patient is present for Follow Up PVR Urology Med: Terazosin, Tolterodine Antibiotic Allergy: None Blood Thinner: None Pharmacy: [facility] PVR: 30ml Allergies Seasonal Allergies Allergy (Verified 01/21/23 13:07) Itchy Eyes Medication List - Last Reconciled 01/21/23 by Julian Robert MD diphenhydramine HCl (Benadryl) 25 mg PO BEDTIME PRN 10 days erythromycin 0.5 inches ophthalmic (eye) TID 7 days fluticasone propionate 50 mcg/actuation (Flonase Allergy Relief) 1 spray intrana cherry Q12H 30 days magnesium oxide 400 mg PO DAILY miscellaneous medical supply Right AFO, As directed, 999 days multivitamin with minerals 1 cap PO DAILY 90 days terazosin 5 mg PO BEDTIME 90 days tolterodine ER 2 mg PO DAILY 90 days HPI HPI Comments History of Present Illness Details David is a very pleasant [place] male. He is a patient of Dr. Gomez. He is seen for the following urologic conditions - lower urinary tract symptoms - overactive bladder - erectile dysfunction [place]se translation provided by qualified medical center manager PVR 30 cc Prior Cystoscopy - Minimal prostate intrusion - 2+ collagen bladder Optimized with terazosin 5 mg and tolterodine 4 mg Lower urinary tract symptoms Initial symptoms include nocturia and urgency Current medications terazosin 5 mg Prior medications include doxazosin 4 mg PSA 07/14 1.1 Bladder US 08/13 Vol 40cc Cystoscopy 10/12 mildly enlarged prostate, significant trabeculation within bladder Erectile dysfunction Given combination lower urinary tract symptoms suggest tadalafil 5 mg daily Overactive bladder Urgency with tap Low-dose oxybutynin with swollen feet Switched to high-dose tolterodine [facility] Medical History Annual physical exam BPH (benign prostatic hyperplasia) Cataract Hearing loss Hip pain, left Lower back pain Rash RLS (restless legs syndrome) Sinusitis SOB (shortness of breath) Tubular adenoma Surgical History History of cataract surgery Hx of colonoscopy Family History Mother Diabetes Father Diabetes Liver cancer Social History Household Members Other:: , s/p CVA Housing: House Are 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 a significant other at home: Yes ( s/p CVA) Patient Tobacco Use Status: Never used Tobacco e-Cigarette/Vaping Use: Never Used Second Hand Smoke Exposure: No service: No Current occupational status: retired Current occupational exposures/hazards: No Cognitive needs: No Hearing needs: Yes (hearing) Vision needs: Yes (reading glasses) Review of Systems Const Denies chills and Denies fever(s) Card Reports no additional complaints and Denies syncope Resp Denies cough GI Denies abdominal pain and Denies heartburn Reports as per HPI and Denies change in libido Neuro Denies syncope Psych Denies change in libido Endo Denies change in libido Physical Exam Const General: cooperative, healthy appearing, comfortable and no acute distress Orientation/consciousness: patient oriented x3 HEENT Face and sinus: Yes normal facial exam Mouth: moist mucous membranes Neck Neck: Yes normal visual inspection, Yes full ROM and Yes trachea midline Chest Chest palpation & inspection: normal inspection of the chest Resp Effort & Inspection: normal respiratory effort, able to speak in complete sentences and no respiratory distress GI Inspection: Yes normal to inspection Back/Spine/Pelvis Cervical Spine: normal cervical lordosis Thoracic/Lumbar Spine: thoracic and lumbar spine normal to inspection Skin General skin exam: no rashes or lesions noted Neuro General: patient oriented x3, gait normal, tone normal and moves all extremities Extrem General: Yes normal to inspection and Yes capillary refill normal Office Procedures Post Void Residual Post Residual Void Post Void Residual (PVR): 30 36224-[id number] Void Residual by ultrasound Results AMB Urinalysis, Automated UA Leukoctes 0 Tammy/uL Last Edit by OJ Stewart on 01/21/23 13:12 UA Nitrite Negative Last Edit by OJ Stewart on 01/21/23 13:12 UA Urobilinogen 0.2 mg/dL Last Edit by OJ Stewart on 01/21/23 13:1 2 UA Protein 0 mg/dL Last Edit by OJ Stewart on 01/21/23 13:12 UA pH 5.5 Last Edit by OJ Stewart on 01/21/23 13:12 UA Blood 0 Frankie/uL Last Edit by Violeta Sen, RMA on 01/21/23 13:12 UA Specific Atkins 1.015 Last Edit by Violeta Sen, RMA on 01/21/23 13: 12 UA Ketone Negative Last Edit by Violeta Sen, RMA on 01/21/23 13:12 UA Bilirubin 0 mg/dL Last Edit by Violeta Sen, RMA on 01/21/23 13:12 UA Glucose 0 mg/dL Last Edit by Violeta Lovettro, RMA on 01/21/23 13:12 Results Reviewed Results Reviewed: Laboratory Last Values Urine pH (Auto) 5.5 01/21/23 13:08 Specific Atkins (Auto) 1.015 01/21/23 13:08 Urine Protein (Auto) 0 mg/dL 01/21/23 13:08 Glucose (UA)(Auto) 0 mg/dL 01/21/23 13:08 Urine Ketones (Auto) Negative 01/21/23 13:08 Urine Blood (Auto) 0 Frankie/uL 01/21/23 13:08 Urine Nitrite (Auto) Negative 01/21/23 13:08 Urine Bilirubin (Auto) 0 mg/dL 01/21/23 13:08 Urine Urobilinogen (Auto) 0.2 mg/dL 01/21/23 13:08 Leukocyte Esterase (Auto) 0 Tammy/uL 01/21/23 13:08 Assessment & Plan Assessment & Plan (1) Urinary frequency: Code(s): R35.0 - Frequency of micturition (2) Bladder outlet obstruction: Code(s): N32.0 - Bladder-neck obstruction Plan Six month follow-up PVR Orders: Orders AMB Post Void Residual by ultrasound 01/21/23 N40.0 - Benign prostatic hyperplasia without lower urinary tract symptoms AMB Urinalysis Automated 01/21/23 Z13.9 - Encounter for screening, unspecified Patient Instructions: Imaging studies, laboratory and physical exam results were discussed and reviewed in detail. No major barriers to patient understanding were identified. An opportunity to ask questions regarding the treatment plan was provided. All questions were answered. The patient expressed understanding and agreement with the above treatment plan. The patient is aware they should contact our office by phone for worsening of their current condition or the appearance of new urologic symptoms. Compliance is encouraged with any medications and followup testing that is ordered. It is a privilege to participate in the urologic care of your patient. If you have any questions or concerns regarding treatment for the above conditions, or other urologic issues, please do not hesitate to contact me. The office telephone contact is [phone]. This note is constructed using voice recognition software. While every effort has been made to ensure accuracy bus and sys integration senior manager errors may have been included. Yours sincerely, Dr Julian Robert MD, [facility] - Urology Providers of Expert, Compassionate Care for the Genitourinary System Coding Level of Care Code Est Pt Level 3 (53962) Diagnoses Urinary frequency R35.0 Bladder outlet obstruction N32.0 CPT Codes Post Residual Void - PVR CPT Code: 10630-Elus Void Residual by ultrasound ([id number])
== END 2023-01-21 13:28 | disposition home or self-care (01) ==
PROVIDERS: Visit Provider Urology
DX: R35.0 Frequency of micturition (principal); N32.0 Bladder-neck obstruction
CPT/HCPCS: 99213

== ENCOUNTER → 2023-01-21 13:00 | Outpatient (BNVA) | payer MEDICARE, SELFPAY | PROVIDERS: Visit Provider Urology | DX: N40.1 Benign prostatic hyperplasia with lower urinary tract symptoms (principal); N13.8 Other obstructive and reflux uropathy; N32.81 Overactive bladder; R39.15 Urgency of urination; N52.9 Male erectile dysfunction, unspecified; R35.1 Nocturia; Z79.899 Other long term (current) drug therapy | CPT/HCPCS: 51798; 99212 ==

== ENCOUNTER 2023-06-04 12:56 | Outpatient (AMB) | payer MEDICARE, SELFPAY ==
[2023-06-04 13:00] VITALS: BP 126/70; PULSE 87; RESP 13; TEMP 36.5; O2SAT 97; BMI 33.7
--- NOTE | 2023-06-04 13:00 | MHC.PC.OV ---
Vital Signs 06/04/23 13:00 Height 6 ft 2 in Weight 262 lb 2 oz BMI 33.7 BP 126/70 Blood Pressure Location Rt brachial Position Sitting Respiration 13 Pulse 87 Pulse Source Pulse Oximeter Temp 97.7 F Temp Source Temporal Artery Scan Pulse Oximetry (%) 97 Oxygen Delivery Method Room Air Intake Visit Reasons: Extended exam with f/u labs and health maintenance Intake Note: Patient states that he would like vitamins in a supplement that does not contain chemicals. Patient would like something for his eyes due to them being itchy and red and when he wakes up in the morning its like they're crusting over and very dry. Patient would also like a new back support belt due to the one he has wearing out. Patient states that is in the [facility] and is experiencing the same thing where she is and when he goes to visit her it seems that his eyes get worse. Patient states that his throat is scratchy and feels like its filled with phlegm. 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 Allergies Seasonal Allergies Allergy (Verified 06/04/23 13:13) Itchy Eyes Medication List - Last Reconciled 06/04/23 by Amilcar Dao MD cetirizine (Allergy Relief (cetirizine)) 10 mg PO DAILY PRN 30 days magnesium oxide 400 mg PO DAILY miscellaneous medical supply Right AFO, As directed, 999 days olopatadine 0.7% (Pataday Once Daily Relief) 1 drp ophthalmic (eye) DAILY PRN 30 days terazosin 5 mg PO BEDTIME tolterodine ER 2 mg PO DAILY 90 days Tobacco use date assessed: 01/01/23 Fall risk assessment: No Falls in past year Last assessed Fall Risk: 06/04/23 Dental Screening Dental Screen Date: 06/04/23 Did you have a dental visit in the last 12 months?: Yes Did you have a dental problem in the last 6 months where you did not have access to dental care?: No Was dental information given to patient?: Patient has dentist HPI Extended exam with f/u labs and health maintenance HPI Details 72 y/o male presents for an extended exam with f/u labs and health maintenance. No recent labs to review. Pt has complaints of itchy/red eyes. He reports eyes crust over and is very dry. He also reports throat is scratchy and feels like it is filled with phleghm. Pt reports chest pain while moving around. He reports pain subsides after laying down for a bit. [facility] Medical History Tubular adenoma Cataract Sinusitis SOB (shortness of breath) Lower back pain Hip pain, left RLS (restless legs syndrome) BPH (benign prostatic hyperplasia) Annual physical exam Rash Hearing loss Surgical History Hx of colonoscopy History of cataract surgery Family History Mother Diabetes Father Diabetes Liver cancer Social History Household Members Other:: , s/p CVA Housing: House Are you a primary caregiver services home to a significant other at home: Yes ( s/p CVA) Patient Tobacco Use Status: Never used Tobacco e-Cigarette/Vaping Use: Never Used Second Hand Smoke Exposure: No service: No Current occupational status: retired Current occupational exposures/hazards: No Cognitive needs: No Hearing needs: Yes (hearing) Vision needs: Yes (reading glasses) Questionnaire PHQ-9 Over the last 2 weeks, how often have you been bothered by any of the following problems? 1. Little interest or pleasure in doing things: not at all 2. Feeling down, depressed, or hopeless: not at all 3. Trouble falling or staying asleep, or sleeping too much: not at all 4. Feeling tired or having little energy: not at all 5. Poor appetite or overeating: not at all 6. Feeling bad about yourself - or that you are a failure or have let yourself or your family down: not at all 7. Trouble concentrating on things, such as reading the newspaper or watching television: not at all 8. Moving or speaking so slowly that other people could have noticed. Or the opposite - being so fidgety or restless that you have been moving around a lot more than usual: not at all 9. Thoughts that you would be better off or of hurting yourself in some way: not at all Total score: 0 Depression Screening Interpretation: Negative Depression Screening Done: Yes 26852 - PHQ-9 Billing: Yes Source: Developed by Drs. Ming Hamilton, Gerald Mccarty and colleagues, with an educational kusum from [employer]. Thrive Questionnaire Date Thrive assessed: 06/04/23 I am a: Patient What is your living situation today?: I have a steady place to live Within the past 12 months, did the food you bought not last and you didn't have the money to get more?: Never true Within the past 12 months, did you worry whether your food would run out before you got money to buy more?: Never true Do you have trouble paying for medicines?: Yes Do you have trouble getting transportation to medical appointments?: No Do you have trouble paying your heating and electricity bill?: No Do you have trouble taking care of your child, family member or friend?: No Do you have trouble with day-to-day activities such as bathing, preparing meals, shopping, managing finances, etc.?: Yes Are you currently unemployed and looking for a job?: No Are you interested in more education?: No Please select the resources that you would like help with: None Currently or been in a relationship where the following occur: no concerns reported AUDIT C Alcohol Use Questionnaire (AUDIT-C) 1. How often do you have a drink containing alcohol?: Never 3. How often do you have six or more drinks on one occasion?: Never Total Score: 0 TAMMY-7 AMB Questionnaire TAMMY-7 Date TAMMY - 7 assessed: 06/04/23 Feeling nervous, anxious, or on edge: 0 = Not at all Not being able to stop or control worryin = Several days Worrying too much about different things: 1 = Several days Trouble relaxin = Not at all Being so restless that it is hard to sit still: 0 = Not at all Becoming easily annoyed or irritable: 0 = Not at all Feeling afraid as if something awful might happen: 0 = Not at all Total TAMMY-7 score (0-4 normal; 5-9 mild; 10-14 moderate; 15-21 severe): 2 Source: Developed by Drs. Ming Hamilton, Gerald Mccarty and colleagues, with an educational kusum from [employer]. TAMMY-7 Assessment Billing TAMMY-7 Assessment Tool: TAMMY-7 Assessment 93563 Review of Systems Const Denies chills, Denies fatigue, Denies fever(s), Denies headache(s) and Denies weakness Eyes Denies change in vision ENT Denies dizziness, Denies headache(s), Denies hearing loss, Denies nasal congestion, Denies sinus pain, Denies sinus pressure and Denies sore throat Card Denies chest pain, Denies lightheadedness, Denies dyspnea and Denies other (palpitations) Resp Denies cough, Denies dyspnea and Denies wheezing GI Denies abdominal pain, Denies melena, Denies hematochezia, Denies change in bowel habits, Denies dyspepsia and Denies nausea Denies hematuria and Denies dysuria Musc Denies abnormal gait, Denies myalgias, Denies arthralgias, Denies numbness and Denies tingling Skin/Breast Denies rash, Denies unusual bruising and Denies wounds Neuro Denies abnormal gait, Denies dizziness, Denies headache(s), Denies memory loss, Denies numbness, Denies Sensory deficit (Neuro), Denies tingling and Denies weakness Psych Denies anxiety, Denies depression and Denies memory loss Endo Denies cold intolerance, Denies fatigue, Denies heat intolerance, Denies polydipsia and Denies polyuria Bonifacio/Lymph Denies easy bleeding and Denies easy bruising Aller/Immun Denies wheezing Physical exam (Primary Care) Vital Signs: Last Vital Signs Temp 97.7 F 06/04/23 13:00 Pulse 87 06/04/23 13:00 Resp 13 06/04/23 13:00 BP 126/70 06/04/23 13:00 Pulse Ox 97 06/04/23 13:00 Oxygen Delivery Method Room Air 06/04/23 13:00 BMI result Body Mass Index 33.7 Tobacco/Smoking Status: Tobacco use Status Tobacco use date assessed 01/01/23 06/04/23 13:08 Patient Tobacco Use Status Never used Tobacco 06/04/23 13:08 e-Cigarette/Vaping Use Never Used 06/04/23 13:08 PHQ-9: PHQ-9 Score PHQ-9: Total score 0 06/04/23 13:42 Depression Screening Interpretation: Negative Thrive Assessment: Date of Thrive Assessment Date Thrive assessed 06/04/23 06/04/23 13:31 Currently or been in a relationship where the following occur: no concerns reported Const General: no acute distress, well developed, alert and awake Nutritional Appearance: well nourished Orientation/consciousness: patient oriented x3 HENMT Head: Yes normocephalic and Yes atraumatic Ears: hearing grossly normal bilaterally and TM's normal bilaterally General nose exam: Normal external nose present and Normal nares present Mouth: Normal oral and palatal mucosa present and moist mucous membranes Teeth and gingiva: dentition normal Throat: Yes posterior oropharynx normal Eyes General: appearance normal, both eyes and all related structures Pupils: Equal, round and reactive pupils present and Pupil accommodation reflex normal EOM: EOMs intact bilaterally Neck Neck: Yes normal visual inspection, Yes no lymphadenopathy and Yes trachea midline Thyroid: Thyroid normal Carotids: no bruits Lymphatic: no lymphadenopathy noted Chest Chest palpation & inspection: normal inspection of the chest Resp Effort & Inspection: normal respiratory effort Auscultation: clear to auscultation bilaterally Cardio Rate: regular rate Rhythm: regular rhythm Heart sounds: S1 normal heart sound present, S2 normal heart sound present, no gallops, no murmurs and no rubs Bruits: no abdominal aortic bruits and no carotid bruits GI Palpation (GI): No Abdominal aortic bruit present, Soft to palpation, nontender, No hepatosplenomegaly present and No Rebound tenderness present Auscultation: normal bowel sounds General: Yes no CVA tenderness Back/Spine/Pelvis Back: no CVA tenderness Cervical Spine: cervical ROM normal and No Cervical spine tenderness Thoracic/Lumbar Spine: thoraco-lumbar ROM normal, No pain with thoraco-lumbar ROM, No thoracic spinal tenderness and No lumbar spinal tenderness Skin Lesions: no lesions Rashes: no rashes Trauma: no lacerations or abrasions Wounds: no wounds Nails: normal Neuro General: patient oriented x3 Cranial nerves: Yes Equal, round and reactive pupils present Cognition (Neuro): normal cognition Gait exam (Neuro): Normal gait present Motor exam (neuro): 5/5 motor strength present throughout Sensory Exam: No Sensory deficit (Neuro) Deep tendon reflexes (DTR's): Right patellar reflex intensity grade: 2+ and Left patellar reflex intensity grade: 2+ Extrem General: Yes normal to inspection and No edema Psych Appearance: grossly normal Affect: normal affect Attitude: cooperative Thought process: Normal thought process present Assessment and Plan Assessment & Plan (1) Hyperlipidemia: Code(s): E78.5 - Hyperlipidemia, unspecified Plan: Check?lipids (2) Back pain: Code(s): M54.9 - Dorsalgia, unspecified Plan: Low?back?pain?and?patient?wears?a?back?brace. He?would?like?advice?regarding?a?new?back?brace. I?am?referring?him?to?physiatry (3) GERD (gastroesophageal reflux disease): Code(s): K21.9 - Gastro-esophageal reflux disease without esophagitis Plan: Likely?GERD?symptoms?and?he?has?a?history?of?GERD Start?omeprazole (4) Hearing loss: Code(s): H91.90 - Unspecified hearing loss, unspecified ear Plan: Using?hearing?aids Continue?hearing?aid?use Follow-up?at?[facility] [place] [place]?audiology?as?recommended (5) Chest pain: Code(s): R07.9 - Chest pain, unspecified Plan: Burning?with?relaxation?as?well?as?sometimes?with?exertion Recent?echocardiogram?and?stress?test?are?negative. As?above,?trial?omeprazole Advised?him?if?he?has?chest?pain?with?exertion?and?is?still?having?the?discomfort?after?5?minutes.??He?should?seek?medical?attention (6) Screening for prostate cancer: Code(s): Z12.5 - Encounter for screening for malignant neoplasm of prostate Plan: He?can?check?PSA?level?in?June (7) Lower back pain: Code(s): M54.50 - Low back pain, unspecified Plan: As?above (8) Screening for colon cancer: Code(s): Z12.11 - Encounter for screening for malignant neoplasm of colon Plan: Last?colonoscopy?was?this?year?and?recommended?follow-up?in?3?years?for?polyps Follow-up?with?GI?as?recommended (9) Adult general medical examination: Code(s): Z00.00 - Encounter for general adult medical examination without abnormal findings Plan: 72-year-old?male?presents?for?an?extended?exam Orders: Orders Complete Blood Count Auto Diff Today Z00.00 - Encounter for general adult medical examination without abnormal findings Lipid Panel Today Z00.00 - Encounter for general adult medical examination without abnormal findings Microalbumin, Random (w Creat) Today I10 - Essential (primary) hypertension Comprehensive [place]. Panel Fast Today Z00.00 - Encounter for general adult medical examination without abnormal findings Prostate Specific Antigen Scr 07/16/23 Z12.5 - Encounter for screening for malignant neoplasm of prostate UA and rflx microscopic Today Z00.00 - Encounter for general adult medical examination without abnormal findings TSH reflex Free T4 Today Z00.00 - Encounter for general adult medical examination without abnormal findings Referrals Physiatry Referral M54.9 - Dorsalgia, unspecified Ear/Nose/Throat Referral R09.A2 - Foreign body sensation, throat Medications: New olopatadine 0.7% (Pataday Once Daily Relief) 1 drp ophthalmic (eye) DAILY 30 days PRN 5 mL 3RF eye irritation cetirizine (Allergy Relief (cetirizine)) 10 mg PO DAILY 30 days PRN 30 tabs 3RF allergy symptoms omeprazole 40 mg PO DAILY 30 days 30 caps 3RF Changed From terazosin 5 mg PO BEDTIME 90 days 90 caps 1RF N40.1 - Benign prostatic hyperplasia with lower urinary tract symptoms, R35.0 - Frequency of micturition To terazosin 5 mg PO BEDTIME N40.1 - Benign prostatic hyperplasia with lower urinary tract symptoms, R35.0 - Frequency of micturition Coding Level of Care Code Est Pt Level 4 (12863) Diagnoses Hyperlipidemia E78.5 Back pain M54.9 GERD (gastroesophageal reflux disease) K21.9 Hearing loss H91.90 Chest pain R07.9 Screening for prostate cancer Z12.5 Lower back pain M54.50 Screening for colon cancer Z12.11 Adult general medical examination Z00.00 Additional Codes TAMMY-7 Assessment Billing - TAMMY-7 Assessment Tool: TAMMY-7 Assessment 16083 ([id number])
== END 2023-06-04 14:20 | disposition home or self-care (01) ==
PROVIDERS: PCP Family Medicine; Visit Provider Family Medicine
DX: E78.5 Hyperlipidemia, unspecified (principal); M54.9 Dorsalgia, unspecified; K21.9 Gastro-esophageal reflux disease without esophagitis; H91.90 Unspecified hearing loss, unspecified ear; R07.9 Chest pain, unspecified; Z12.5 Encounter for screening for malignant neoplasm of prostate; M54.50 Low back pain, unspecified; Z12.11 Encounter for screening for malignant neoplasm of colon; Z00.00 Encounter for general adult medical examination without abnormal findings
CPT/HCPCS: 99214

== ENCOUNTER 2023-07-23 11:26 | Outpatient (REF) | payer MEDICARE, SELFPAY ==
[2023-07-23 14:17] LABS: MANUAL DIFF FLAG NO
[2023-07-23 14:21] LABS: Basophils Absolute Auto 0.1 X10*3/uL (0.0-0.2); Basophils Percent Auto 0.8 % (0-2); Eosinophils Absolute Auto 0.4 X10*3/uL (0.0-0.4); Eosinophils Percent Auto 5.6 % (0-4); Hematocrit 46.8 % (42.0-52.0); Hemoglobin 15.8 g/dl (14.0-18.0); Imm Gran Abs Auto 0.02 X10*3/uL (0.00-0.03); Imm Gran Pct Auto 0.3 % (0.0-0.4); Lymphocytes Absolute Auto 2.2 X10*3/uL (1.2-4.9); Lymphocytes Percent Auto 33.3 % (20-40); Mean Corpuscular HGB Conc 33.8 g/dl (31.0-36.0); Mean Corpuscular Hemoglobin 29.8 pg (27.0-33.0); Mean Corpuscular Volume 88.3 fL (80.0-98.0); Mean Platelet Volume 10.2 fL (9.4-12.4); Monocytes Absolute Auto 0.7 X10*3/uL (0.1-1.2); Monocytes Percent Auto 10.3 % (2-11); Neutrophils Absolute Auto 3.3 x10*3/uL (2.0-8.3); Neutrophils Percent Auto 49.7 % (45-73); Platelet Count 162 X10*3/uL (160-400); Red Cell Distribution Width 12.9 % (11.0-16.0); White Blood Count 6.6 X10*3/uL (4.8-10.8)
[2023-07-23 14:39] LABS: Alanine Aminotransferase 22 U/L (0-40); Albumin Level 4.2 g/dL (3.5-5.0); Alkaline Phosphatase 63 U/L (39-117); Anion Gap 12 (12-20); Aspartate Amino Transferase 21 U/L (5-37); Bilirubin Total 0.9 mg/dL (0.0-1.0); Blood Urea Nitrogen 13 mg/dL (9-16); Carbon Dioxide 28 mmol/L (22-29); Chloride 105 mmol/L (96-108); Cholesterol 208 mg/dL (<200); Estimated Glomerular Filt Rate > 60; Glucose Fasting 96 mg/dL (60-99); HDL Cholesterol 42 mg/dL (>40); LDL Cholesterol Calculated 142 mg/dL (<100); Potassium 3.8 mmol/L (3.3-5.1); Sodium 141 mmol/L (135-145); Triglycerides 122 mg/dL (<150)
[2023-07-23 14:50] LABS: Prostate Specific Antigen Scr 0.94 ng/mL (<0.05-4.0)
[2023-07-23 14:56] LABS: TSH reflex Free T4 1.41 uIU/mL (0.32-4.0)
== END 2023-07-23 11:27 | disposition home or self-care (01) ==
LOC: HO.WFDLDS 11:26
PROVIDERS: Visit Provider Family Medicine
DX: Z00.00 Encounter for general adult medical examination without abnormal findings (principal); Z12.5 Encounter for screening for malignant neoplasm of prostate
CPT/HCPCS: 36415; 80053; 80061; 84153; 84443; 85025

== ENCOUNTER 2023-07-29 13:01 | Outpatient (AMB) | payer MEDICARE, SELFPAY ==
--- NOTE | 2023-07-29 13:07 | MHC.OFFVIS ---
Intake Intake Visit Reasons: 6m/PVR Intake Note: Patient is Present for Follow Up PVR Urology Medication: Terazosin, Tolterodine Antibiotic Allergies: None Blood Thinners: None PVR: 0 Allergies Seasonal Allergies Allergy (Verified 06/04/23 13:13) Itchy Eyes HPI HPI Comments History of Present Illness Details David is a very pleasant [place] male. He is a patient of Dr. Gomez. He is seen for the following urologic conditions - lower urinary tract symptoms - overactive bladder - erectile dysfunction [place]uan translation provided by qualified medical billing clerk Current PVR 0 cc Prior Cystoscopy - Minimal prostate intrusion - 2+ collagen bladder Optimized with terazosin 5 mg and tolterodine 4 mg Continue medications Discussed pelvic floor exercises Printed information provided Lower urinary tract symptoms Initial symptoms include nocturia and urgency Current medications terazosin 5 mg Prior medications include doxazosin 4 mg PSA 07/14 1.1 Bladder US 08/13 Vol 40cc Cystoscopy 10/12 mildly enlarged prostate, significant trabeculation within bladder Erectile dysfunction Given combination lower urinary tract symptoms suggest tadalafil 5 mg daily Overactive bladder Urgency with tap Low-dose oxybutynin with swollen feet Switched to high-dose tolterodine PFSH Medical History Tubular adenoma Cataract Sinusitis SOB (shortness of breath) Lower back pain Hip pain, left RLS (restless legs syndrome) BPH (benign prostatic hyperplasia) Annual physical exam Rash Hearing loss Surgical History Hx of colonoscopy History of cataract surgery Family History Mother Diabetes Father Diabetes Liver cancer Social History Household Members Other:: , s/p CVA Housing: House 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 at home: Yes ( s/p CVA) Patient Tobacco Use Status: Never used Tobacco e-Cigarette/Vaping Use: Never Used Second Hand Smoke Exposure: No service: No Current occupational status: retired Current occupational exposures/hazards: No Cognitive needs: No Hearing needs: Yes (hearing) Vision needs: Yes (reading glasses) Review of Systems Const Denies chills and Denies fever(s) Card Reports no additional complaints and Denies syncope Resp Denies cough GI Denies abdominal pain and Denies heartburn Reports as per HPI and Denies change in libido Neuro Denies syncope Psych Denies change in libido Endo Denies change in libido Physical Exam Const General: cooperative, healthy appearing, comfortable and no acute distress Orientation/consciousness: patient oriented x3 HEENT Face and sinus: Yes normal facial exam Mouth: moist mucous membranes Neck Neck: Yes normal visual inspection, Yes full ROM and Yes trachea midline Chest Chest palpation & inspection: normal inspection of the chest Resp Effort & Inspection: normal respiratory effort, able to speak in complete sentences and no respiratory distress GI Inspection: Yes normal to inspection Back/Spine/Pelvis Cervical Spine: normal cervical lordosis Thoracic/Lumbar Spine: thoracic and lumbar spine normal to inspection Skin General skin exam: no rashes or lesions noted Neuro General: patient oriented x3, gait normal, tone normal and moves all extremities Extrem General: Yes normal to inspection and Yes capillary refill normal Office Procedures Post Void Residual Post Residual Void Post Void Residual (PVR): 0 [id number] Void Residual by ultrasound Assessment & Plan Assessment & Plan (1) Bladder outlet obstruction: Code(s): N32.0 - Bladder-neck obstruction (2) Urinary frequency: Code(s): R35.0 - Frequency of micturition Plan Continue medications Encourage Kegel exercises Six-month follow-up PVR Orders: Orders AMB Post Void Residual by ultrasound Today R33.9 - Retention of urine, unspecified Patient Instructions: Imaging studies, laboratory and physical exam results were discussed and reviewed in detail. No major barriers to patient understanding were identified. An opportunity to ask questions regarding the treatment plan was provided. All questions were answered. The patient expressed understanding and agreement with the above treatment plan. The patient is aware they should contact our office by phone for worsening of their current condition or the appearance of new urologic symptoms. Compliance is encouraged with any medications and followup testing that is ordered. It is a privilege to participate in the urologic care of your patient. If you have any questions or concerns regarding treatment for the above conditions, or other urologic issues, please do not hesitate to contact me. The office telephone contact is [phone]. This note is constructed using voice recognition software. While every effort has been made to ensure accuracy seal delivery vehicle officer errors may have been included. Yours sincerely, Dr Julian Robert MD, [facility] - Urology Providers of Expert, Compassionate Care for the Genitourinary System Coding Level of Care Code Est Pt Level 4 (39683) Diagnoses Bladder outlet obstruction N32.0 Urinary frequency R35.0 CPT Codes Post Residual Void - PVR CPT Code: 31446-Yczr Void Residual by ultrasound ([id number])
== END 2023-07-29 13:41 | disposition home or self-care (01) ==
PROVIDERS: PCP Family Medicine; Visit Provider Urology
DX: N32.0 Bladder-neck obstruction (principal); R35.0 Frequency of micturition
CPT/HCPCS: 99214

== ENCOUNTER → 2023-07-29 13:01 | Outpatient (BNVA) | payer MEDICARE, SELFPAY | PROVIDERS: PCP Family Medicine; Visit Provider Urology | DX: N32.0 Bladder-neck obstruction (principal); R35.0 Frequency of micturition | CPT/HCPCS: 51798; 99212 ==

== ENCOUNTER 2023-08-21 11:26 | Outpatient (AMB) | payer MEDICARE, SELFPAY ==
[2023-08-21 11:47] VITALS: BP 122/80; PULSE 68; RESP 13; TEMP 36.6; O2SAT 98; BMI 33.4
--- NOTE | 2023-08-21 11:47 | MHC.OFFWIV ---
Intake Vital Signs 08/21/23 11:47 Height 6 ft 2 in Weight 260 lb BMI 33.4 BP 122/80 Blood Pressure Location Rt brachial Position Sitting Respiration 13 Pulse 68 Pulse Source Pulse Oximeter Temp 97.8 F Temp Source Temporal Artery Scan Pulse Oximetry (%) 98 Oxygen Delivery Method Room Air Intake Visit Reasons: cold symptoms Intake Note: Patient states that hes wheezing and is congested. Patient also states he was seen by a provider already and the medication given is not helping. Patient Tobacco Use Status: Never used Tobacco Assistant Spa Manager Required: Yes Assistant Spa Manager Name: Annemarie ([id number]) Accompanied by: Self / Same As Patient Allergies Seasonal Allergies Allergy (Verified 08/21/23 11:54) Itchy Eyes Do you need a note to return to daycare/school/sports/work: No HPI HPI Comments History of Present Illness Details Here today sore throat & lungs feeling congested; this started 1.5 years ago, Used to sing and now he is not able to d/t throat. When he tries so sing it cuts out and is hoarse. Feels like something is blocking it. Does see a doctor in [place] - app a few times for this problem. Notes reviewed, indicates this is his PCP Has been taking pills but has not worked Looked back on records, saw PCP, CXR done and WNL. Records date back to 09/2022 with this complaint treated w/ AB. No improvement. Shows me video of him singing today - becomes upset saying he cannot sing like this anymore. He was referred to ENT. However appt cancelled d/t insurance issues ([facility] referral). Interested in alternate referral to ENT in [place]. He is aware there is a several month wait. He is ok w/ this. Never smoked. Also thinks he needs AB for his eyes. Reports bilat eyes with yellow drainage and crusting. Applying warm comps to help. Dutch Assistant Spa Manager [facility] Medical History Tubular adenoma Cataract Sinusitis SOB (shortness of breath) Lower back pain Hip pain, left RLS (restless legs syndrome) BPH (benign prostatic hyperplasia) Annual physical exam Rash Hearing loss Surgical History Hx of colonoscopy History of cataract surgery Family History Mother Diabetes Father Diabetes Liver cancer Social History Household Members Other:: , s/p CVA Housing: House Are you a primary managed care provider to a significant other at home: Yes ( s/p CVA) Patient Tobacco Use Status: Never used Tobacco e-Cigarette/Vaping Use: Never Used Second Hand Smoke Exposure: No service: No Current occupational status: retired Current occupational exposures/hazards: No Cognitive needs: No Hearing needs: Yes (hearing) Vision needs: Yes (reading glasses) Review of Systems Const All systems reviewed & are unremarkable except as noted in HPI and below Physical Exam Vital Signs: Last Vital Signs Temp 97.8 F 08/21/23 11:47 Pulse 68 08/21/23 11:47 Resp 13 08/21/23 11:47 BP 122/80 08/21/23 11:47 Pulse Ox 98 08/21/23 11:47 Oxygen Delivery Method Room Air 08/21/23 11:47 BMI result Body Mass Index 33.4 Const Other: alert oriented NAD Dutch speaking scleras and conjunctiva clear Pharnyx WNL RRR LS CTAB, dry cough Assessment & Plan Assessment & Plan (1) Vocal cord dysfunction: Comment: We will refer him to ENT in [place]. I hope that this group of work with his insurance. He is aware that it may take several months to get in. Should he have any problems with the referral I do recommend he follow up his primary care provider. Code(s): J38.3 - Other diseases of vocal cords (2) Cough: Comment: As he reports a cough ongoing for several months in addition to the vocal cord dysfunction the decision was made to refer him to pulmonology. Referral placed today. Code(s): R05.9 - Cough, unspecified (3) Conjunctivitis: Comment: On exam is normal I have made the decision to treat him with antibiotic drops. Take as directed. Code(s): H10.9 - Unspecified conjunctivitis Plan This note is constructed using voice recognition software. While every effort has been made to ensure accuracy in licensed mass real estate appraiser, still errors may have been included Sometimes, these errors may affect the content or meaning of the given sentence . Total time spent caring for the patient today was 60 minutes. This includes time spent before the visit reviewing the chart, time spent during the visit, and time spent after the visit on documentation Orders: Referrals Ear/Nose/Throat Referral J38.3 - Other diseases of vocal cords Pulmonary Medicine Referral R05.9 - Cough, unspecified Medications: New polymyxin B sulf-trimethoprim 10,000 unit- 1 mg/mL APPLY TO BOTH EYES while awake; do not exceed 6 doses in 24 hours 1 drp ophthalmic (eye) QID 10 mL 0RF 5 days Patient Instructions: Put cold or warm wet cloths on your eye a few times a day if the eye hurts. Do not wear contact lenses or eye makeup until the pink eye is gone. Throw away any eye makeup you were using when you got pink eye. Clean your contacts and storage case. Wash bed linen after 24 hours of antibiotic eye drop use. Do not share eye drops. Use a clean towel to wash your face each day until symptoms are gone. This will help prevent recurrence. What is pink eye? [place] eye is a term people use to describe an infection or irritation of the eye. The medical term for pink eye is conjunctivitis. If you have pink eye, your eye (or eyes) might: ?Turn pink or red ?Weep or ooze a gooey liquid ?Become itchy or burn ?Get stuck shut, especially when you first wake up [place] eye can be caused by an infection, allergies, or an unknown irritation. Can you catch pink eye from someone else? Yes. When pink eye is caused by an infection, it can spread easily. Usually, people catch it from touching something that has been in contact with an infected person's eye. It can also be spread when an infected person touches someone else, and then that person touches their eye. If someone you know has pink eye, avoid touching their pillowcases, towels, or other personal items. When should I see a doctor or nurse? See your doctor or nurse if your eye hurts, or if you still have trouble seeing clearly after blinking. If you do not have these problems, but think you might have pink eye, your doctor or nurse might be able to give you advice over the phone. Can pink eye be treated? Most cases of pink eye go away on their own without treatment. But some types of pink eye can be treated. When pink eye is caused by infection, it is usually caused by a virus, so antibiotics will not help. Still, pink eye caused by a virus can last several days. ?[place] eye caused by an infection with bacteria can be treated with antibiotic eye drops, gel, or ointment. ?[place] eye caused by other problems can be treated with eye drops normally used to treat allergies. These drops will not cure the pink eye, but they can help with itchiness and irritation. When using eye drops for infection, do not touch your healthy eye after touching your infected eye. Also, do not touch the bottle or dropper directly onto 1 eye and then use it in the other. These things can cause the infection to spread from 1 eye to the other. If your eyelids feel swollen, it might also help to hold a cool wet cloth on the area. What if I wear contact lenses? If you wear contact lenses and you have symptoms of pink eye, it is really important to have a doctor look at your eyes. In people who wear contacts, the symptoms of pink eye can be caused by corneal abrasion. Corneal abrasion is a scratch on the eye and can be a serious problem. During treatment for eye infections, you might need to stop wearing your contacts for a short time. If your contacts are disposable, throw them away and use new ones. If your contacts are not disposable, you need to carefully clean them. You should also throw away your contact lens case and get a new one. When can I go back to work or school? If you have pink eye caused by an infection, remember that it can spread very easily. The best way to avoid spreading it is to stay away from other people until you no longer have symptoms. If this is not possible, wash your hands often (figure 1). It's also important to avoid touching your eyes and sharing items that could spread the infection. Schools and day cares usually have rules about when a child with pink eye can return. If a child has a bacterial infection, they will probably need to stay home until they have gotten antibiotic eye drops or ointment for 24 hours. Can pink eye be prevented? To keep from getting or spreading pink eye caused by an infection: ?Wash your hands often with soap and water. ?Try not to touch your eyes. ?Avoid sharing towels, bedding, or other personal items with a person who has pink eye. If your pink eye is caused by allergies, it might help to stay inside with the windows shut as much as possible during peak allergy seasons. What problems should I watch for? Call your doctor or nurse if: ?You have trouble seeing clearly after blinking. ?Your eye is still red or has drainage after 3 days. ?You have eye pain that is getting worse. Coding Level of Care Code Est Pt Level 5 (50806) Diagnoses Vocal cord dysfunction J38.3 Cough R05.9 Conjunctivitis H10.9
== END 2023-08-21 12:30 | disposition home or self-care (01) ==
PROVIDERS: PCP Family Medicine; Visit Provider Nurse Practitioner Family
DX: J38.3 Other diseases of vocal cords (principal); R05.9 Cough, unspecified; H10.9 Unspecified conjunctivitis
CPT/HCPCS: 99215

== ENCOUNTER 2023-09-07 12:50 | Outpatient (AMB) | payer MEDICARE, SELFPAY ==
--- NOTE | 2023-09-07 13:01 | MHC.OFFVIS ---
Intake Vital Signs 09/07/23 13:05 Height 6 ft 2 in Weight 257 lb 15.053 oz BMI 33.1 BP 141/71 H Blood Pressure Location Lt brachial Position Sitting Pulse 76 Intake Visit Reasons: 1 year follow up Intake Note: Oswaldo presents in the office as a 1 year follow up. CC: Feliberto recommended him to come see us because he is having bloating in his stomach. He has stools that are hard and soft - it depends on the foods. He feels like Tolteridone was the reason to his stomach. Allergies Seasonal Allergies Allergy (Verified 08/21/23 11:54) Itchy Eyes HPI 1 year follow up HPI Details LAST VISIT: Tubular adenoma Tubular adenoma without high-grade dysplasia or carcinoma was found on colonoscopy. Patient well return for colorectal screen in 3 years due to suboptimal prep or sooner if clinically necessary. Diverticulosis Diverticulosis of descending colon found. Patient is reporting that he eats vegetables and plenty fiber, however he agrees to take MiraLax in addition to help him move his bowels better. Status post colonoscopy Tubular adenoma found, colorectal screening in 3 years, sooner if clinically necessary. I will see patient in 1 year, sooner on as needed basis. Patient is agreeable to this plan and verbalizes understanding of instructions. He was given the opportunity to ask questions and all questions answered ? Thank you for allowing me to participate in his care Plan Medications New polyethylene glycol 3350 (Miralax) 17 grams PO DAILY 510 grams 2RF Refilled magnesium oxide 400 mg PO DAILY 90 caps 2RF K59.04 PFSH Medical History Tubular adenoma Cataract Sinusitis SOB (shortness of breath) Lower back pain Hip pain, left RLS (restless legs syndrome) BPH (benign prostatic hyperplasia) Annual physical exam Rash Hearing loss Surgical History Hx of colonoscopy History of cataract surgery Family History Mother Diabetes Father Diabetes Liver cancer Social History Household Members Other:: , s/p CVA Housing: House Are you a primary child care leader to a significant other at home: Yes ( s/p CVA) Patient Tobacco Use Status: Never used Tobacco e-Cigarette/Vaping Use: Never Used Second Hand Smoke Exposure: No service: No Current occupational status: retired Current occupational exposures/hazards: No Cognitive needs: No Hearing needs: Yes (hearing) Vision needs: Yes (reading glasses) Review of Systems Const Denies weight gain and Denies weight loss ENT Reports no additional complaints, Denies dysphagia and Denies odynophagia Card Reports no additional complaints Resp Reports no additional complaints GI Reports abdominal pain, Denies belching, Denies melena, Reports bloating, Denies change in bowel habits, Reports constipation, Denies dysphagia, Denies excessive flatus, Denies dyspepsia, Reports heartburn, Denies diarrhea, Denies loose stools, Denies nausea, Denies odynophagia and Denies vomiting Reports no additional complaints Musc Reports no additional complaints Neuro Reports no additional complaints Psych Reports no additional complaints Endo Reports no additional complaints Physical Exam Vital Signs: Last Vital Signs Pulse 76 09/07/23 13:05 BP 141/71 H 09/07/23 13:05 BMI result Body Mass Index 33.1 Const General: healthy appearing, no acute distress and well developed Nutritional Appearance: well nourished Orientation/consciousness: patient oriented x3 Resp Effort & Inspection: normal respiratory effort, able to speak in complete sentences, no tracheal deviation and symmetric chest movement Auscultation: clear to auscultation bilaterally Cardio Rate: regular rate GI Inspection: Yes normal to inspection and No distended Palpation (GI): Soft to palpation, not firm, nontender and No hepatosplenomegaly present Auscultation: normal bowel sounds General: Yes no CVA tenderness Back/Spine/Pelvis Back: no CVA tenderness Skin General skin exam: elasticity normal, turgor normal and dry skin Neuro General: patient oriented x3 Psych Appearance: grossly normal Mental Status: mental status grossly normal Assessment & Plan Assessment & Plan (1) Abdominal bloating: Code(s): R14.0 - Abdominal distension (gaseous) (2) Postprandial abdominal bloating: Code(s): R14.0 - Abdominal distension (gaseous) (3) Chronic idiopathic constipation: Code(s): K59.04 - Chronic idiopathic constipation Medications: New bisacodyl (Dulcolax (bisacodyl)) 10 mg (2 x 5 mg) PO BEDTIME 180 tabs 4RF Discontinued magnesium oxide Discontinued Reason: Doctor's Order 400 mg PO DAILY 90 caps 2RF K59.04 - Chronic idiopathic constipation Coding Diagnoses Abdominal bloating R14.0 Postprandial abdominal bloating R14.0 Chronic idiopathic constipation K59.04
[2023-09-07 13:05] VITALS: BP 141/71; PULSE 76; BMI 33.1
[2023-09-12 21:26] VITALS: BMI 33.1
--- NOTE | 2023-09-12 21:26 | A.OFFVIS_ITS ---
Intake Vital Signs 09/07/23 13:05 09/12/23 21:26 Height 6 ft 2 in Weight 257 lb 15.053 oz BMI 33.1 33.1 BP 141/71 H Blood Pressure Location Lt brachial Position Sitting Pulse 76 Intake Visit Reasons: 1 year follow up Allergies Seasonal Allergies Allergy (Verified 09/09/23 10:53) Itchy Eyes HPI 1 year follow up HPI Details LAST VISIT JUNE 2022 Tubular adenoma Tubular adenoma without high-grade dysplasia or carcinoma was found on colonoscopy. Patient well return for colorectal screen in 3 years due to suboptimal prep or sooner if clinically necessary. Diverticulosis Diverticulosis of descending colon found. Patient is reporting that he eats vegetables and plenty fiber, however he agrees to take MiraLax in addition to help him move his bowels better. Status post colonoscopy Tubular adenoma found, colorectal screening in 3 years, sooner if clinically necessary. I will see patient in 1 year, sooner on as needed basis. Patient is agreeable to this plan and verbalizes understanding of instructions. He was given the opportunity to ask questions and all questions answered ? Thank you for allowing me to participate in his care Plan Medications New polyethylene glycol 3350 (Miralax) 17 grams PO DAILY 510 grams 2RF Refilled magnesium oxide 400 mg PO DAILY 90 caps 2RF K59.04 TODAY'S VISIT Patient is here today for follow-up. Patient was put on the schedule with Dr. Thomas and is requesting to see me as he is Azeri speaking mainly. Patient reports that since the last time I have seen him he has been feeling well, however he complains of postprandial abdominal bloating weight gain and constipation. Patient reports that he only moves his bowels every couple days and he does not feel like he empties his bowels completely. Patient denies any dyspepsia, dysphagia or odynophagia. Currently taking omeprazole with good effect. Patient denies any nausea or vomiting. Denies any melena, hematochezia, unintentional weight loss or ribbon like stools. Patient will be due to go for colonoscopy in 2 years. Patient reports that he has been going under stress as his was just placed not long ago in the half-way. Until that time patient was taking care of her himself. 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 other at home: Yes ( s/p CVA) Patient Tobacco Use Status: Never used Tobacco e-Cigarette/Vaping Use: Never Used Second Hand Smoke Exposure: No service: No Current occupational status: retired Current occupational exposures/hazards: No Cognitive needs: No Hearing needs: Yes (hearing) Vision needs: Yes (reading glasses) Review of Systems Const Denies weight gain and Denies weight loss ENT Reports no additional complaints, Denies dysphagia and Denies odynophagia Card Reports no additional complaints Resp Reports no additional complaints GI Denies abdominal pain, Denies belching, Denies melena, Reports bloating, Denies change in bowel habits, Reports constipation, Denies dysphagia, Denies excessive flatus, Denies dyspepsia, Denies heartburn, Denies diarrhea, Denies loose stools, Denies nausea, Denies odynophagia and Denies vomiting Reports no additional complaints Musc Reports no additional complaints Neuro Reports no additional complaints Psych Reports no additional complaints Endo Reports no additional complaints Physical Exam Vital Signs: Last Vital Signs Pulse 76 09/07/23 13:05 BP 141/71 H 09/07/23 13:05 BMI result Body Mass Index 33.1 Const General: healthy appearing, no acute distress and well developed Nutritional Appearance: well nourished Orientation/consciousness: patient oriented x3 Resp Effort & Inspection: normal respiratory effort, able to speak in complete sentences, no tracheal deviation and symmetric chest movement Auscultation: clear to auscultation bilaterally Cardio Rate: regular rate GI Inspection: Yes normal to inspection and No distended Palpation (GI): Soft to palpation, not firm, nontender and No hepatosplenomegaly present Auscultation: normal bowel sounds General: Yes no CVA tenderness Back/Spine/Pelvis Back: no CVA tenderness Skin General skin exam: elasticity normal, turgor normal and dry skin Neuro General: patient oriented x3 Psych Appearance: grossly normal Mental Status: mental status grossly normal Assessment & Plan Assessment & Plan (1) GERD (gastroesophageal reflux disease): Code(s): K21.9 - Gastro-esophageal reflux disease without esophagitis Qualifiers: Esophagitis presence: esophagitis presence not specified Qualified Code(s): K21.9 - Gastro-esophageal reflux disease without esophagitis (2) Constipation: Code(s): K59.00 - Constipation, unspecified Qualifiers: Constipation type: slow transit constipation Qualified Code(s): K59.01 - Slow transit constipation (3) Postprandial abdominal bloating: Code(s): R14.0 - Abdominal distension (gaseous) Plan Patient will start taking Dulcolax tablets every evening. Patient was encouraged to increase fluid intake and activity to promote better bowel motility. Low FODMAP diet discussed with patient. Patient reports bloating and cramping. Patient will return in 6 months, sooner on as needed basis. Patient is agreeable to this plan and verbalizes understanding of instructions. He was given the opportunity to ask questions and all questions answered. Thank you for allowing me to participate in his care Medications: New bisacodyl (Dulcolax (bisacodyl)) 10 mg (2 x 5 mg) PO BEDTIME 180 tabs 4RF Discontinued magnesium oxide Discontinued Reason: Doctor's Order 400 mg PO DAILY 90 caps 2RF K59.04 - Chronic idiopathic constipation Quality Reporting (2019) Adult ([facility] 138//) Body Mass Index: 33.1 Coding Level of Care Code Est Pt Level 3 (58375) Diagnoses Gastroesophageal reflux disease, unspecified whether esophagitis present K21.9 Esophagitis presence: esophagitis presence not specified Slow transit constipation K59.01 Constipation type: slow transit constipation Postprandial abdominal bloating R14.0 Time Spent (min) 30 Comment 20 minutes spent with patient and additional 10 minutes spent reviewing his records
== END 2023-09-07 13:52 | disposition home or self-care (01) ==
PROVIDERS: PCP Family Medicine; Visit Provider Internal Medicine Gastroenterology
DX: K21.9 Gastro-esophageal reflux disease without esophagitis (principal); K59.01 Slow transit constipation; R14.0 Abdominal distension (gaseous)
CPT/HCPCS: 99213

== ENCOUNTER → 2023-09-07 12:50 | Outpatient (BNVA) | payer MEDICARE, SELFPAY | PROVIDERS: PCP Family Medicine; Visit Provider Internal Medicine Gastroenterology | DX: K21.9 Gastro-esophageal reflux disease without esophagitis (principal); K59.00 Constipation, unspecified; K59.01 Slow transit constipation; R14.0 Abdominal distension (gaseous) | CPT/HCPCS: 99212 ==

== ENCOUNTER 2023-09-09 09:58 | Outpatient (AMB) | payer MEDICARE, SELFPAY ==
--- NOTE | 2023-09-09 10:44 | MHC.OFFVIS ---
Intake Vital Signs 09/09/23 10:47 Height 6 ft 2 in Weight 263 lb BMI 33.8 BP 136/70 Blood Pressure Location Lt brachial Position Sitting Pulse 79 Pulse Source Pulse Oximeter Pulse Oximetry (%) 97 Oxygen Delivery Method Room Air Intake Visit Reasons: Cough Welding Teacher Required: Yes Welding Teacher Name: Yu #[id number] Director Of Patient Care: Director Of Patient Care offered & declined Accompanied by: Self / Same As Patient Allergies Seasonal Allergies Allergy (Verified 09/09/23 10:53) Itchy Eyes Medication List - Last Reconciled 09/09/23 by Darshana Holcomb LPN bisacodyl (Dulcolax (bisacodyl)) 10 mg (2 x 5 mg) PO BEDTIME cetirizine (Allergy Relief (cetirizine)) 10 mg PO DAILY PRN 30 days miscellaneous medical supply Right AFO, As directed, 999 days olopatadine 0.7% (Pataday Once Daily Relief) 1 drp ophthalmic (eye) DAILY PRN 30 days omeprazole 40 mg PO DAILY 30 days polymyxin B sulf-trimethoprim 10,000 unit- 1 mg/mL 1 drp ophthalmic (eye) QID 5 days terazosin 5 mg PO BEDTIME tolterodine ER 2 mg PO DAILY 90 days HPI Cough HPI Details Oswaldo is a pleasant 73 year old male, never smoker, with underlying chronic cough. He was referred by PCP for pulmonary evaluation. He reports chronic cough for the last year and a half, occasionally productive with yellow to white sputum, wheezing and dyspnea on exertion. He also reports constant throat clearing and hoarseness. He will be undergoing evaluation for vocal cord dysfunction with ENT in February. He denies prior history of respiratory issues. Patient reports multiple seasonal allergies, no recent allergy testing. He denies any symptoms of GERD. He denies any occupational exposures. He denies any pertinent family history. [facility] Medical History Tubular adenoma Cataract Sinusitis SOB (shortness of breath) Lower back pain Hip pain, left RLS (restless legs syndrome) BPH (benign prostatic hyperplasia) Annual physical exam Rash Hearing loss Surgical History Hx of colonoscopy History of cataract surgery Family History Mother Diabetes Father Diabetes Liver cancer Social History (Updated 09/09/23 @ 10:54 by Darshana Holcomb LPN) Household Members Other:: , s/p CVA Housing: House Are you a primary daycare director to a significant other at home: Yes ( s/p CVA) Patient Tobacco Use Status: Never used Tobacco Smoked in Last 30 Days: No e-Cigarette/Vaping Use: Never Used Second Hand Smoke Exposure: No service: No Current occupational status: retired Current occupational exposures/hazards: No Cognitive needs: No Hearing needs: Yes (hearing) Vision needs: Yes (reading glasses) Review of Systems Const Denies chills, Denies excessive sweating, Denies fever(s), Denies headache(s) and Denies night sweats Eyes Denies dry eyes, Denies irritation and Denies itchy eyes ENT Reports Normal hearing present, Denies headache(s), Denies nasal congestion and Denies nasal discharge Card Denies chest pain, Denies chest pain at rest, Denies chest pain with activity, Denies claudication, Denies leg edema, Denies orthopnea and Denies paroxysmal nocturnal dyspnea Resp Denies chest congestion, Denies pain on inspiration, Denies pain with cough and Denies stridor Musc Denies myalgias Neuro Reports Normal hearing present and Denies headache(s) Endo Denies excessive sweating Bonifacio/Lymph Denies lymphadenopathy Aller/Immun Denies itchy eyes and Denies seasonal rhinorrhea Physical Exam Vital Signs: Last Vital Signs Pulse 79 09/09/23 10:47 BP 136/70 09/09/23 10:47 Pulse Ox 97 09/09/23 10:47 Oxygen Delivery Method Room Air 09/09/23 10:47 BMI result Body Mass Index 33.8 Const General: cooperative, healthy appearing, comfortable, no acute distress, well developed and alert Nutritional Appearance: obese Orientation/consciousness: patient oriented x3 Limitations: no limitations HEENT Head: Yes normal to inspection, Yes normocephalic and Yes atraumatic Ears: hearing grossly normal bilaterally and external ears normal Eyes General: appearance normal, both eyes and all related structures Eyelids: Yes eyelids normal Sclerae: sclerae normal EOM: EOMs intact bilaterally Neck Neck: Yes normal visual inspection and Yes no lymphadenopathy Lymphatic: no lymphadenopathy noted Chest Chest palpation & inspection: normal inspection of the chest Resp Effort & Inspection: normal respiratory effort, able to speak in complete sentences, no audible wheezes, no cough, no stridor, not tachypneic, no tripod positioning and no use of accessory muscles Auscultation: clear to auscultation bilaterally Cardio Jugular venous distension: no JVD Rate: regular rate Rhythm: regular rhythm Skin Other: warm, dry General skin exam: no rashes or lesions noted Neuro General: patient oriented x3 Cranial nerves: Yes Normal hearing present Cognition (Neuro): normal cognition Gait exam (Neuro): Normal gait present Extrem General: Yes normal to inspection, Yes capillary refill normal, Yes no clubbing, cyanosis or edema and Yes no pedal edema Psych Appearance: grossly normal and well kempt Speech and movement: Normal speech and movement present and Clear speech present Affect: normal affect Attitude: cooperative Thought process: Normal thought process present Thought content: Normal thought content present Insight: Good insight present (Psych) Judgement: Good judgement present (Psych) Assessment & Plan Assessment & Plan (1) Cough: Code(s): R05.9 - Cough, unspecified (2) Dyspnea: Code(s): R06.00 - Dyspnea, unspecified (3) Environmental allergies: Code(s): Z91.09 - Other allergy status, other than to drugs and biological substances (4) Vocal cord dysfunction: Code(s): J38.3 - Other diseases of vocal cords Saturnino Oswaldo presents for evaluation of chronic cough, dyspnea and vocal cord dysfunction. Will assess for pulmonary involvement contributing to cough and dyspnea with PFT and chest x-ray. May need to further assess with chest CT. Patient reports symptoms consistent with vocal cord dysfunction which could be contributing to the majority of symptoms. He will be evaluated by ENT in February. Will also send for RAST testing as patient reported significant seasonal allergies which may be contributing to symptoms as well. All questions were answered and patient is in agreement of plan will follow-up to review results. Orders: Orders Resp Allergy Profile Region I Today PFT pulmonary function test Today R06.00 - Dyspnea, unspecified Immunoglobulin E Today Z91.09 - Other allergy status, other than to drugs and biological substances XR chest 2V Today R06.00 - Dyspnea, unspecified Coding Level of Care Code New Pt Level 4 (21508) Diagnoses Cough R05.9 Dyspnea R06.00 Environmental allergies Z91.09 Vocal cord dysfunction J38.3
[2023-09-09 10:47] VITALS: BP 136/70; PULSE 79; O2SAT 97; BMI 33.8
== END 2023-09-09 11:40 | disposition home or self-care (01) ==
PROVIDERS: PCP Family Medicine; Visit Provider Nurse Practitioner Family
DX: R05.9 Cough, unspecified (principal); R06.00 Dyspnea, unspecified; Z91.09 Other allergy status, other than to drugs and biological substances; J38.3 Other diseases of vocal cords
CPT/HCPCS: 99204

== ENCOUNTER → 2023-09-09 09:58 | Outpatient (BNVA) | payer MEDICARE, SELFPAY | PROVIDERS: PCP Family Medicine; Visit Provider Nurse Practitioner Family | DX: R05.9 Cough, unspecified (principal); R06.00 Dyspnea, unspecified; J38.3 Other diseases of vocal cords; Z91.09 Other allergy status, other than to drugs and biological substances | CPT/HCPCS: 99202 ==

== ENCOUNTER 2023-09-17 10:41 | Outpatient (REF) | payer MEDICARE, SELFPAY ==
[2023-09-17 14:40] LABS: MANUAL DIFF FLAG NO
[2023-09-17 14:56] LABS: Appearance Urine Turbid; Color Urine Yellow; Glucose Urine UA Negative (Negative); Leukocyte Esterase Urine Trace (Negative); Nitrite Urine Negative (Negative); UMIC TRIGGER UA YES; Urine Blood Negative (Negative); Urine Ketones Negative (Negative); Urine Protein Negative (Neg-Trace)
[2023-09-17 15:02] LABS: Bacteria Urine None Seen (None Seen); Hyaline Casts Urine 0-2 /LPF (0-2); RBC Urine 0-2 /HPF (0-2); Squamous Epithelial Cell Urine 0-2 /HPF (0-2); WBC Urine 0-5 /HPF (0-5)
[2023-09-17 15:12] LABS: Basophils Absolute Auto 0.1 X10*3/uL (0.0-0.2); Basophils Percent Auto 0.9 % (0-2); Eosinophils Absolute Auto 0.4 X10*3/uL (0.0-0.4); Eosinophils Percent Auto 5.8 % (0-4); Hematocrit 46.1 % (42.0-52.0); Hemoglobin 15.7 g/dl (14.0-18.0); Imm Gran Abs Auto 0.03 X10*3/uL (0.00-0.03); Imm Gran Pct Auto 0.5 % (0.0-0.4); Lymphocytes Absolute Auto 2.1 X10*3/uL (1.2-4.9); Lymphocytes Percent Auto 32.3 % (20-40); Mean Corpuscular HGB Conc 34.1 g/dl (31.0-36.0); Mean Corpuscular Hemoglobin 30.1 pg (27.0-33.0); Mean Corpuscular Volume 88.3 fL (80.0-98.0); Mean Platelet Volume 10.8 fL (9.4-12.4); Monocytes Absolute Auto 0.8 X10*3/uL (0.1-1.2); Monocytes Percent Auto 11.6 % (2-11); Neutrophils Absolute Auto 3.2 x10*3/uL (2.0-8.3); Neutrophils Percent Auto 48.9 % (45-73); Platelet Count 183 X10*3/uL (160-400); Red Blood Count 5.22 X10*6/uL (4.60-5.80); White Blood Count 6.6 X10*3/uL (4.8-10.8)
[2023-09-17 15:44] LABS: Creatinine Urine 191.67 mg/dL; Microalbumin Urine < 5.0 mg/L
[2023-09-17 15:58] LABS: Alanine Aminotransferase 22 U/L (0-40); Albumin Level 4.1 g/dL (3.5-5.0); Alkaline Phosphatase 57 U/L (39-117); Anion Gap 11 (12-20); Aspartate Amino Transferase 25 U/L (5-37); Bilirubin Total 0.9 mg/dL (0.0-1.0); Blood Urea Nitrogen 18 mg/dL (9-16); Carbon Dioxide 26 mmol/L (22-29); Chloride 107 mmol/L (96-108); Cholesterol 206 mg/dL (<200); Estimated Glomerular Filt Rate > 60; Glucose Fasting 102 mg/dL (60-99); HDL Cholesterol 44 mg/dL (>40); Iron 120 mcg/dL (45-160); LDL Cholesterol Calculated 142 mg/dL (<100); Percent Iron Saturation 50 % (15-50); Sodium 140 mmol/L (135-145); Total Iron Binding Capacity 241 mcg/dL (228-428); Total Protein 6.8 g/dL (6.5-8.0); Triglycerides 103 mg/dL (<150); Unsaturated Iron Binding 121 ug/dL
[2023-09-17 16:16] LABS: TSH reflex Free T4 1.54 uIU/mL (0.32-4.0)
[2023-09-17 16:19] LABS: Folate 10.5 ng/mL (> or = 4.0); Prostate Specific Antigen Scr 0.91 ng/mL (<0.05-4.0); Vitamin B12 526 pg/mL (200-900)
[2023-09-25 06:44] LABS: Class Alternaria alternata 0; Class Aspergillus fumigatus 0; Class Bermuda Grass 0; Class Birch 0/1; Class Cat Dander 0; Class Cladosporium herbarum 0; Class Cockroach 0/1; Class Common Ragweed 2; Class Cottonwood 0; Class Derm. pterony 0; Class Dermatophagoides farinae 0; Class Dog Dander 0; Class Elm 0; Class Maple Box Elder 0; Class Mountain Cedar 0; Class Mouse Urine Protein 0; Class Mugwort 0; Class Oak 0; Class Penicillium crysogenum 0; Class Rough Pigweed 0; Class Sheep Sorrel 0; Class Sycamore 0; Class Timothy Grass 0; Class Walnut Tree 0; Class White Ash 0; Class White Mulberry 0; D001 IgE D pteronyssinus <0.10 kU/L; D002 - IgE D farinae <0.10 kU/L; E001 - IgE Cat Dander <0.10 kU/L; E005 - IgE Dog Dander <0.10 kU/L; E072-IgE Mouse Urine <0.10 kU/L; G002 IgE Bermuda Grass <0.10 kU/L; G006 - IgE Timothy Grass <0.10 kU/L; I006-IgE Cockroach, German 0.24 kU/L; Immunoglobulin E 176 kU/L (<OR=114); M001 IgE Penicillium chrysogen <0.10 kU/L; M002 - IgE Cladosporium herbar <0.10 kU/L; M003 - IgE Aspergillus fumigat <0.10 kU/L; M006 - IgE Alternaria alternat <0.10 kU/L; T001 IgE Maple/Box Elder <0.10 kU/L; T003 IgE Common Silver Birch 0.34 kU/L; T006 - IgE Cedar, Mountain <0.10 kU/L; T007 - IgE Oak, White <0.10 kU/L; T008 IgE Elm, American <0.10 kU/L; T010 - IgE Walnut <0.10 kU/L; T011 - IgE Maple Leaf Sycamore <0.10 kU/L; T014 - IgE Cottonwood <0.10 kU/L; T015 - IgE Ash, White <0.10 kU/L; T070 - IgE White Mulberry <0.10 kU/L; W006 - IgE Mugwort <0.10 kU/L; W014 IgE Pigweed, Common <0.10 kU/L; W018 IgE Sheep Sorrel <0.10 kU/L
== END 2023-09-17 10:42 | disposition home or self-care (01) ==
LOC: HO.WFDLDS 10:41
PROVIDERS: Referring Provider Nurse Practitioner Family; Visit Provider Family Medicine
DX: Z13.89 Encounter for screening for other disorder (principal)
CPT/HCPCS: 36415; 80053; 80061; 81001; 82043; 82570; 82607; 82746; 82785; 83540; 84153; 84443; 85025; 86003; 99202

== ENCOUNTER 2023-09-17 11:32 | Outpatient (AMB) | payer MEDICARE, SELFPAY ==
--- NOTE | 2023-09-17 11:33 | A.OFFVIS_ITS ---
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 Patient states his pain started about many years ago about 28 years old and had an accident where he tried to lift something that was heavy and it caused injury. He states he can still walk and function. He states he does have radiating pain to his legs, he feels tingling that goes down to his feet. He feels like he is walking on soft soles. He has pain in his knees as well. He has done physical therapy. Patient is hard of hearing and was referred by his PCP Dr. Dao. He does not take any medications for pain. 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 Solder Deposit Operator Name: #[id number] Allergies Seasonal Allergies Allergy (Verified 09/17/23 11:41) Itchy Eyes Medication List - Last Reconciled 09/17/23 by Linda Cintron, RN bisacodyl (Dulcolax (bisacodyl)) 10 mg (2 x 5 mg) PO BEDTIME cetirizine (Allergy Relief (cetirizine)) 10 mg PO DAILY PRN 30 days miscellaneous medical supply Right AFO, As directed, 999 days olopatadine 0.7% (Pataday Once Daily Relief) 1 drp ophthalmic (eye) DAILY PRN 30 days omeprazole 40 mg PO DAILY 30 days polymyxin B sulf-trimethoprim 10,000 unit- 1 mg/mL 1 drp ophthalmic (eye) QID 5 days terazosin 5 mg PO BEDTIME tolterodine ER 2 mg PO DAILY 90 days HPI HPI Comments History of Present Illness Details Chronic since he was younger, since an accident/lifting at work. This has now worsened. Bothers him all the time. Every time he makes a wrong move. He cannot stand of a long period of time. He wears a belt but he thinks he needs a new one. More on the right side then goes to left leg. When he stands longer, he feels numbness in the pelvis area . Reports numbness right leg; and some numbness on both feet at times. Treatment done so far: physical therapy, exercises at home taught by [facility] Medical History (Updated 09/17/23 @ 12:13 by Rama Camacho MD) Lumbar spondylosis Tubular adenoma Cataract Sinusitis SOB (shortness of breath) Lower back pain Hip pain, left RLS (restless legs syndrome) BPH (benign prostatic hyperplasia) Annual physical exam Rash Hearing loss Surgical History Hx of colonoscopy History of cataract surgery Family History Mother Diabetes Father Diabetes Liver cancer Social History (Updated 09/09/23 @ 10:54 by Darshana Holcomb LPN) Household Members Other:: , s/p CVA Housing: House Are you a primary floor care 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 Patient was appropriately conversant and oriented. MSK: No specific abnormalities found on inspection of the spine and all extremities. Right SI joint tender. Lumbar ROM was full. Bilateral hip, knee and ankle ROM WNL. No ligamentous laxity or crepitance. No increased effusion. Straight-leg raising test negative. FABERE test positive right. Strength is 5/5 in all muscle groups tested. No increased tone noted. Neurological: Neurologic examination of the upper and lower extremities was nonfocal with intact sensation, muscle stretch reflexes and without focal motor deficits . Woo?s negative bilaterally. Babinski was down going bilaterally. Clonus was negative. Gait is non-antalgic without loss of balance. Results Reviewed Results Reviewed: I independently reviewed the results of the following: MRI shows lumbar spondylosis without central stenosis. I reviewed records from the following: PCP Assessment & Plan Assessment & Plan (1) Lumbar spondylosis: Code(s): M47.816 - Spondylosis without myelopathy or radiculopathy, lumbar region (2) Sacroiliac joint dysfunction of right side: Code(s): M53.3 - Sacrococcygeal disorders, not elsewhere classified Plan MRI 2022 shows spondylosis without central spinal stenosis. No neurologic findi ngs on exam. He also has tenderness over right SI joint. He also confirms that he has been aware of MRI findings and that he was told last year that surgery is not indicated at this time. He was advised to be careful with lifting. Discussed with him MRI results and that I agree with non surgical recommendation. I recommended referral to Pain Management and consider injections, MBB vs epidural vs SI joint. Patient is agreeable with this plan. He asked whether they will use US for needle guidance; and I reassured him that they would use US or fluoro for guidance. Assessment and plan discussed with patient, and patient was agreeable. All questions were answered thoroughly. Total of 45 minute spent today including chart review, results review, history taking, physical examination, discussion of assessment and plan, and coordination of care. Rama Camacho MD, NISHA Board Certified, [place] [employer] and Rehabilitation (ABPMR) Board Certified, [place] [employer] of Electrodiagnostic Medicine (ABEM) Orders: Referrals Pain Management Referral M47.816 - Spondylosis without myelopathy or radiculopathy, lumbar region, M53.3 - Sacrococcygeal disorders, not elsewhere classified Medications: New back brace As directed 1 ea 0RF LSO for lumbar support M47.816 - Spondylosis without myelopathy or radiculopathy, lumbar region, M53.3 - Sacrococcygeal disorders, not elsewhere classified Coding Level of Care Code New Pt Level 4 (94424) Diagnoses Lumbar spondylosis M47.816 Sacroiliac joint dysfunction of right side M53.3
== END 2023-09-17 12:24 | disposition home or self-care (01) ==
PROVIDERS: PCP Family Medicine; Visit Provider Physical Medicine & Rehabilitation
DX: M47.816 Spondylosis without myelopathy or radiculopathy, lumbar region (principal); M53.3 Sacrococcygeal disorders, not elsewhere classified
CPT/HCPCS: 99204

== ENCOUNTER 2023-09-17 13:16 | Outpatient (REF) | payer MEDICARE, SELFPAY ==
--- NOTE | ~2023-09-17 | XR_ITS ---
EXAMINATION: XR CHEST CLINICAL INFORMATION: Dyspnea COMPARISON: 07/24/2021 TECHNIQUE: 2 views of the chest were obtained. FINDINGS: Minor apical pleural thickening. No significant abnormality is noted involving the heart, lungs, mediastinum, bony thorax or soft tissues. XR/XR chest 2V IMPRESSION: No acute cardiopulmonary disease or interval change.
== END 2023-09-17 13:17 | disposition home or self-care (01) ==
LOC: HO.XRAY 13:16
PROVIDERS: PCP Family Medicine; Visit Provider Nurse Practitioner Family
DX: R06.00 Dyspnea, unspecified (principal)
CPT/HCPCS: 36415; 71046; 80053; 80061; 81001; 82570; 82607; 82746; 82785; 83540; 84153; 84443; 85025; 86003; 99202

== ENCOUNTER 2023-10-02 13:09 | Outpatient (AMB) | payer MEDICARE, SELFPAY ==
--- NOTE | 2023-10-02 13:39 | A.OFFVIS_ITS ---
Intake Vital Signs 10/02/23 13:40 Height 6 ft 2 in Weight 254 lb 6 oz BMI 32.7 BP 140/67 H Blood Pressure Location Lt brachial Position Sitting Respiration 18 Pulse 94 Pulse Source Pulse Oximeter Intake Visit Reasons: Lumbar Spondylosis, (R) SI Joint Pain Allergies Seasonal Allergies Allergy (Verified 10/02/23 13:27) Itchy Eyes HPI HPI Comments History of Present Illness Details Oswaldo is a very pleasant 73-year-old Algerian speaking male who pre sented to the office today for evaluation and management of his chronic lower back pain Visit was completed with portion spinner frame # [id number] Patient reports he has been suffering with this pain for greater than 40 years. 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 Patient was recently seen by physiatry and referred here for for consideration of injections. Pain today is rated as an 8/10, constant. He does report shooting pain with some numbness down his right leg to the foot. He denies red flag symptoms including new loss of bowel, bladder or saddle anesthesia. Pain is worse with twisting, standing and walking. Pain improved with sitting. He has tried Tylenol and nonsteroidal anti-inflammatory medications without improvement of his pain. He has never undergone chiropractor, acupuncture, massage or previous attempts at injections. Patient recently completed physical therapy, he continues with home exercise program as instructed on discharge from PT despite this his pain persists. He has full range of motion, no pain with flexion or extension. In terms of muscle damage condition is described as aching, burning, stabbing, cramping. Pain is negatively impacting patient's general activity, enjoyment of life, recreational activities and sleep [facility] Medical History (Updated 10/02/23 @ 15:26 by June Bhatti, SURVEYING CREW STAKE RUNNER, BPM SOLUTION ARCHITECT) Lumbar spondylosis Tubular adenoma Cataract Sinusitis SOB (shortness of breath) Lower back pain Hip pain, left RLS (restless legs syndrome) BPH (benign prostatic hyperplasia) Annual physical exam Rash Hearing loss Surgical History Hx of colonoscopy History of cataract surgery Family History Mother Diabetes Father Diabetes Liver cancer Social History (Updated 09/09/23 @ 10:54 by Darshana Holcomb LPN) Household Members Other:: , s/p CVA Housing: House Are you 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 to a significant other at home: Yes ( s/p CVA) Patient Tobacco Use Status: Never used Tobacco e-Cigarette/Vaping Use: Never Used Second Hand Smoke Exposure: No service: No Current occupational status: retired Current occupational exposures/hazards: No Cognitive needs: No Hearing needs: Yes (hearing) Vision needs: Yes (reading glasses) Review of Systems Const All systems reviewed & are unremarkable except as noted in HPI and below Physical Exam Vital Signs: Last Vital Signs Pulse 94 10/02/23 13:40 Resp 18 10/02/23 13:40 BP 140/67 H 10/02/23 13:40 BMI result Body Mass Index 32.7 General: awake, alert, oriented. Answers questions appropriately. Fully engaged in examination. Skin: warm, dry, intact HEENT: Normocephalic. Hearing intact. Cardiac: External chest normal in appearance. Respiratory: No cough, audible wheezing or stridor. Abdomen: without gross distension. MS: No obvious swelling or deformities. Able to stand on bilateral tiptoes and bilateral heels.? Able to transition from sit to stand unassisted. Ambulates with bilaterally normal heel strike and toe off Facet loading positive lumbar ROM intact SLR positive on right tenderness of midline lumbar vertebrae, right greater than left nontender of bilateral PSIS negative clonus, negative foot drop Neurological: Oriented to person, place, time and situation. Thought process intact. No gait abnormalities appreciated. Psychiatric: Appropriate mood and affect. Good judgment and insight. Results Reviewed Results Reviewed: 10/30/2022 MR/MR lumbar spine wo con FINDINGS: There are 5 nonrib-bearing lumbar-type vertebral bodies. Slight grade 1 retrolisthesis of L3 on L4 and L4 on L5. There is mild chronic upper endplate compression deformity at L1. The remaining vertebral body heights are maintained. There are no acute fractures. No bone marrow edema. Modic type II endplate signal changes at L3-L4 and L5-S1. There is mild disc volume loss at L5-S1 and the remaining disc volumes are preserved. Conus terminates at the L1 level. Left parapelvic cysts. Simple left renal cysts for which no further imaging follow-up is warranted. L1-L2: Disc contour is normal. No central canal stenosis and no foraminal stenosis. L2-L3: Diffuse annular disc bulge and moderate bilateral facet arthropathy and ligamentum flavum thickening. No central canal stenosis and no foraminal stenosis. L3-L4: Left paracentral/left lateral disc protrusion associated with an annular fissure results in posterior deflection of the traversing left L4 nerve root within the left subarticular zone and moderate left-sided foraminal stenosis with mass effect on the extraforaminal left L3 nerve root. No central canal stenosis. Mild right-sided foraminal encroachment. L4-L5: Diffuse annular disc bulge exhibiting a dorsal annular fissure and moderate bilateral facet arthropathy. No central canal stenosis. Mild foraminal encroachment bilaterally. L5-S1: Right lateral disc osteophyte protrusion results in moderate right-sided foraminal stenosis and mass effect on the extraforaminal right L5 nerve root. Shallow left paracentral disc osteophyte protrusion. No central canal stenosis. Moderate right-sided facet arthropathy. IMPRESSION: - At L3-L4, a left paracentral/left lateral disc protrusion associated with an annular fissure results in posterior deflection of the traversing left L4 nerve root within the left subarticular zone and moderate left-sided foraminal stenosis with mass effect on the extraforaminal left L3 nerve root. - At L5-S1, a right lateral disc osteophyte protrusion results in moderate right-sided foraminal stenosis and mass effect on the extraforaminal right L5 nerve root. - Additional spondylitic changes throughout the lumbar spine as discussed above. Assessment & Plan Assessment & Plan (1) Lumbar radiculopathy: Code(s): M54.16 - Radiculopathy, lumbar region Plan 73-year-old male presented to the office today for evaluation management of his chronic lower back pain. History, physical exam and provocative testing consistent with lumbar radiculopathy. Patient has exhausted conservative therapy including PT, home exercise program, Tylenol, nonsteroidal anti-inflammatory medications without improvement of symptoms. Recent MRI reviewed, as per above Discussed options for treatment including diagnostic interventional testing, epidural steroid injections, peripheral nerve stimulation with Sprint, RFA and more permanent neuromodulation. Informational pamphlets provided. Will schedule for bilateral L4-5 transforaminal epidural steroid injection with local anesthetic All questions and concerns have been answered and patient agrees with the plan. Follow up after injection and sooner if needed. Coding Level of Care Code New Pt Level 4 (66761) Diagnoses Lumbar radiculopathy M54.16
[2023-10-02 13:40] VITALS: BP 140/67; PULSE 94; RESP 18; BMI 32.7
== END 2023-10-02 14:05 | disposition home or self-care (01) ==
PROVIDERS: PCP Family Medicine; Visit Provider Registered Nurse Emergency
DX: M54.16 Radiculopathy, lumbar region (principal)
CPT/HCPCS: 99204

== ENCOUNTER → 2023-10-02 13:09 | Outpatient (BNVA) | payer MEDICARE, SELFPAY | PROVIDERS: PCP Family Medicine; Visit Provider Registered Nurse Emergency | DX: M54.16 Radiculopathy, lumbar region (principal) | CPT/HCPCS: 99202 ==

== ENCOUNTER 2023-11-19 14:00 | Outpatient (AMB) | payer MEDICARE, SELFPAY ==
--- NOTE | 2023-11-19 14:09 | MHC.PC.OV ---
Vital Signs 11/19/23 14:10 Height 6 ft 2 in Weight 255 lb BMI 32.7 BP 130/70 Blood Pressure Location Rt brachial Pulse 76 Pulse Source Pulse Oximeter Pulse Oximetry (%) 96 Oxygen Delivery Method Room Air Intake Visit Reasons: belt for back pain discussion Intake Note: Patient is here to discuss a belt for his back today. Starcher And Tenter Range Feeder Required: Yes Starcher And Tenter Range Feeder Name: Romansh technical associate [id number] [place] Allergies Seasonal Allergies Allergy (Verified 11/19/23 14:18) Itchy Eyes Tobacco use date assessed: 11/19/23 Fall risk assessment: No Falls in past year Last assessed Fall Risk: 11/19/23 Dental Screening Dental Screen Date: 06/04/23 HPI belt for back pain discussion HPI Details 73 y/o male presents to f/u back pain. He states he would like to discuss a back brace. Pt reports chest discomfort. [facility] Medical History (Updated 10/02/23 @ 15:26 by June Bhatti APRN, LOAD BLOCKER) Lumbar spondylosis Tubular adenoma Cataract Sinusitis SOB (shortness of breath) Lower back pain Hip pain, left RLS (restless legs syndrome) BPH (benign prostatic hyperplasia) Annual physical exam Rash Hearing loss Surgical History Hx of colonoscopy History of cataract surgery Family History Mother Diabetes Father Diabetes Liver cancer Social History (Updated 09/09/23 @ 10:54 by Darshana Holcomb LPN) Household Members Other:: , s/p CVA Housing: House Are you a primary primary care coordinator to a significant other at home: Yes ( s/p CVA) Patient Tobacco Use Status: Never used Tobacco e-Cigarette/Vaping Use: Never Used Second Hand Smoke Exposure: No service: No Current occupational status: retired Current occupational exposures/hazards: No Cognitive needs: No Hearing needs: Yes (hearing) Vision needs: Yes (reading glasses) Questionnaire Thrive Questionnaire Date Thrive assessed: 06/04/23 TAMMY-7 AMB Questionnaire TAMMY-7 Date TAMMY - 7 assessed: 06/04/23 Source: Developed by Drs. Ming Hamilton, Vani Pike, Gerald Sofia and colleagues, with an educational kusum from [employer]. Review of Systems Const Denies chills, Denies fatigue, Denies fever(s), Denies headache(s) and Denies weakness ENT Denies dizziness and Denies headache(s) Card Reports chest pain and Denies dyspnea Resp Denies cough, Denies dyspnea, Denies wheezing and Denies other (shortness of breath) Musc Reports back pain, Denies numbness and Denies tingling Neuro Denies dizziness, Denies headache(s), Denies numbness, Denies tingling and Denies weakness Psych Denies anxiety and Denies depression Endo Denies fatigue Aller/Immun Denies wheezing Physical exam (Primary Care) Vital Signs: Last Vital Signs Pulse 76 11/19/23 14:10 BP 130/70 11/19/23 14:10 Pulse Ox 96 11/19/23 14:10 Oxygen Delivery Method Room Air 11/19/23 14:10 BMI result Body Mass Index 32.7 Tobacco/Smoking Status: Tobacco use Status Tobacco use date assessed 11/19/23 11/19/23 14:22 Patient Tobacco Use Status Never used Tobacco 11/19/23 14:13 e-Cigarette/Vaping Use Never Used 11/19/23 14:13 Thrive Assessment: Date of Thrive Assessment Date Thrive assessed 06/04/23 11/19/23 14:13 Const General: well developed; No acute distress Nutritional Appearance: well nourished Orientation/consciousness: patient oriented x3 [facility] Head: Yes normocephalic and Yes atraumatic Eyes General: appearance normal, both eyes and all related structures Pupils: Equal, round and reactive pupils present EOM: EOMs intact bilaterally Resp Effort & Inspection: normal respiratory effort Neuro General: patient oriented x3 and gait normal Cranial nerves: Yes Equal, round and reactive pupils present Psych Affect: normal affect Assessment and Plan Assessment & Plan (1) Lower back pain: Code(s): M54.50 - Low back pain, unspecified Plan: Ongoing?low?back?pain?with?radiculopathy. Patient?has?been?using?a?lumbar?back?support?belt He?would?like?a?replacement. We?did?discuss?that?data?regarding?the?efficacy?of?these?devices?is?equivocal. Nevertheless,?patient?feels?certain?that?this?is?benefitting?him. Will?give?him?a?script?for?a?back?support?belt. He?can?bring?this?to?a?medical?supply?store. (2) Precordial chest pain: Code(s): R07.2 - Precordial pain Plan: Patient?has?had?concerns?regarding?precordial?chest?pain?in?the?past. Echocardiogram?was?negative?and?Lexiscan?was?inconclusive. He?will?return?for?next?visit?to?get?ultrasound?and?consider?chest?x-ray Medications: New miscellaneous medical supply Lumbar Support Belt, Daily As directed, 999 days 1 ea 0RF M47.816 - Spondylosis without myelopathy or radiculopathy, lumbar region, M53.3 - Sacrococcygeal disorders, not elsewhere classified, M54.16 - Radiculopathy, lumbar region Coding Level of Care Code Est Pt Level 3 (54507) Diagnoses Lower back pain M54.50 Precordial chest pain R07.2
[2023-11-19 14:10] VITALS: BP 130/70; PULSE 76; O2SAT 96; BMI 32.7
== END 2023-11-19 15:27 | disposition home or self-care (01) ==
PROVIDERS: PCP Family Medicine; Visit Provider Family Medicine
DX: M54.50 Low back pain, unspecified (principal); R07.2 Precordial pain
CPT/HCPCS: 99213

== ENCOUNTER 2023-12-01 06:19 | Outpatient (REF) | payer MEDICARE, SELFPAY | END 2023-12-01 06:20 | disposition home or self-care (01) | LOC: CF 06:19 | PROVIDERS: Visit Provider Anesthesiology | DX: Z13.89 Encounter for screening for other disorder (principal) ==

== ENCOUNTER 2024-01-05 07:27 | Outpatient (REF) | payer MEDICARE, SELFPAY | END 2024-01-05 07:28 | disposition home or self-care (01) | LOC: CF 07:27 | PROVIDERS: Visit Provider Anesthesiology | DX: Z13.89 Encounter for screening for other disorder (principal) ==

== ENCOUNTER 2024-02-03 13:38 | Outpatient (AMB) | payer MEDICARE, SELFPAY ==
--- NOTE | 2024-02-03 13:40 | MHC.OFFVIS ---
Intake Visit Reasons: 6M Follow Up-PVR Intake Note: Patient is Present for PVR/ Urology Med: Tadalafil, Terazosin, Tolterodine Antibiotic Allergy: None Blood Thinner: None Todays PVR: 24ml Motion And Time Study Teacher Required: Yes Motion And Time Study Teacher Language: Vincentian Accompanied by: Self / Same As Patient Allergies Seasonal Allergies Allergy (Verified 11/19/23 14:18) Itchy Eyes Medication List - Last Reconciled 02/03/24 by Julian Robert MD back brace As directed bisacodyl (Dulcolax (bisacodyl)) 10 mg (2 x 5 mg) PO BEDTIME cetirizine (Allergy Relief (cetirizine)) 10 mg PO DAILY PRN 30 days erythromycin 1 appl ophthalmic (eye) TID miscellaneous medical supply Right AFO, As directed, 999 days miscellaneous medical supply Lumbar Support Belt, Daily As directed, 999 days olopatadine 0.7% (Pataday Once Daily Relief) 1 drp ophthalmic (eye) DAILY PRN 30 days omeprazole 40 mg PO DAILY 30 days polymyxin B sulf-trimethoprim 10,000 unit- 1 mg/mL 1 drp ophthalmic (eye) QID 5 days tadalafil 5 mg PO DAILY 90 days terazosin 5 mg PO BEDTIME tolterodine ER 2 mg PO DAILY 90 days vibegron 75 mg PO DAILY 30 days HPI Comments Details: David is a very pleasant Vincentian male. He is a patient of Dr. Gomez. He is seen for the following urologic conditions - lower urinary tract symptoms - overactive bladder - erectile dysfunction Vincentian translation provided by qualified medical surgical tech Has been on tolterodine 4 mg. Still waking multiple times at night. Bladder instability Will trial beta adrenergic Also has persistent eye infection and needs repeat ointment Prior Cystoscopy - Minimal prostate intrusion - 2+ trabeculated bladder Optimized with terazosin 5 mg and tolterodine 4 mg Continue medications Discussed pelvic floor exercises Printed information provided Lower urinary tract symptoms Initial symptoms include nocturia and urgency Current medications terazosin 5 mg Prior medications include doxazosin 4 mg PSA 07/14 1.1 Bladder US 08/13 Prostate Vol 40cc Cystoscopy 10/12 mildly enlarged prostate, significant trabeculation within bladder Erectile dysfunction Given combination lower urinary tract symptoms suggest tadalafil 5 mg daily Overactive bladder Urgency with tap Low-dose oxybutynin with swollen feet Switched to high-dose tolterodine PFSH Medical History Lumbar spondylosis Tubular adenoma Cataract Sinusitis SOB (shortness of breath) Lower back pain Hip pain, left RLS (restless legs syndrome) BPH (benign prostatic hyperplasia) Annual physical exam Rash Hearing loss Surgical History Hx of colonoscopy History of cataract surgery Family History Mother Diabetes Father Diabetes Liver cancer Social History Household Members Other:: , s/p CVA Housing: House Are you a primary nurse behavioral health care to a significant other at home: Yes ( s/p CVA) Patient Tobacco Use Status: Never used Tobacco e-Cigarette/Vaping Use: Never Used Second Hand Smoke Exposure: No service: No Current occupational status: retired Current occupational exposures/hazards: No Cognitive needs: No Hearing needs: Yes (hearing) Vision needs: Yes (reading glasses) Review of Systems Const Denies chills and Denies fever(s) Card Reports no additional complaints and Denies syncope Resp Denies cough GI Denies abdominal pain and Denies heartburn Reports as per HPI and Denies change in libido Neuro Denies syncope Psych Denies change in libido Endo Denies change in libido Physical Exam Const General: cooperative, healthy appearing, comfortable and no acute distress Orientation/consciousness: patient oriented x3 HEENT Face and sinus: Yes normal facial exam Mouth: moist mucous membranes Neck Neck: Yes normal visual inspection, Yes full ROM and Yes trachea midline Chest Chest palpation & inspection: normal inspection of the chest Resp Effort & Inspection: normal respiratory effort, able to speak in complete sentences and no respiratory distress GI Inspection: Yes normal to inspection Back/Spine/Pelvis Cervical Spine: normal cervical lordosis Thoracic/Lumbar Spine: thoracic and lumbar spine normal to inspection Skin General skin exam: no rashes or lesions noted Neuro General: patient oriented x3, gait normal, tone normal and moves all extremities Extrem General: Yes normal to inspection and Yes capillary refill normal Office Procedures Post Void Residual Post Residual Void Post Void Residual (PVR): [id number]-[id number] Void Residual by ultrasound Assessment & Plan Assessment & Plan (1) Conjunctivitis: Comment: On exam is normal I have made the decision to treat him with antibiotic drops. Take as directed. Code(s): H10.9 - Unspecified conjunctivitis Category: Medical (2) Overactive bladder: Code(s): N32.81 - Overactive bladder Category: Medical Plan Add beta adrenergic based on insurance coverage Orders: Orders AMB Post Void Residual by ultrasound Today R33.9 - Retention of urine, unspecified Medications: New vibegron 75 mg PO DAILY 30 days 30 tabs 1RF R35.0 - Frequency of micturition erythromycin Use 1/2 inch strip ointment into affected eye 1 appl ophthalmic (eye) TID 3.5 grams 0RF R35.0 - Frequency of micturition Patient Instructions: Imaging studies, laboratory and physical exam results were discussed and reviewed in detail. No major barriers to patient understanding were identified. An opportunity to ask questions regarding the treatment plan was provided. All questions were answered. The patient expressed understanding and agreement with the above treatment plan. The patient is aware they should contact our office by phone for worsening of their current condition or the appearance of new urologic symptoms. Compliance is encouraged with any medications and followup testing that is ordered. It is a privilege to participate in the urologic care of your patient. If you have any questions or concerns regarding treatment for the above conditions, or other urologic issues, please do not hesitate to contact me. The office telephone contact is [phone]. This note is constructed using voice recognition software. While every effort has been made to ensure accuracy warehouse production worker errors may have been included. Yours sincerely, Dr Julian Robert MD, [facility] - Urology Providers of Expert, Compassionate Care for the Genitourinary System Coding Level of Care Code Est Pt Level 4 (23934) Diagnoses Conjunctivitis H10.9 Overactive bladder N32.81 CPT Codes Post Residual Void - PVR CPT Code: 66135-Hglo Void Residual by ultrasound ([id number])
== END 2024-02-03 14:23 | disposition home or self-care (01) ==
LOC: HO.HUSH 13:38
PROVIDERS: PCP Family Medicine; Visit Provider Urology
DX: H10.9 Unspecified conjunctivitis (principal); N32.81 Overactive bladder
CPT/HCPCS: 99214

== ENCOUNTER → 2024-02-03 13:38 | Outpatient (BNVA) | payer MEDICARE, SELFPAY | PROVIDERS: PCP Family Medicine; Visit Provider Urology | DX: R35.1 Nocturia (principal); R39.15 Urgency of urination; N52.9 Male erectile dysfunction, unspecified; N32.81 Overactive bladder; R33.9 Retention of urine, unspecified; Z79.899 Other long term (current) drug therapy | CPT/HCPCS: 51798; 99212 ==

== ENCOUNTER 2024-02-13 09:54 | Outpatient (REF) | payer MEDICARE, SELFPAY ==
--- NOTE | 2024-02-13 10:00 | PFT_ITS ---
Flows: FEV1: 93 % of predicted at 3.29 L FVC: 93 % of predicted at 4.41 L FEV1/FVC: 75 % Bronchodilator response: Absent Volumes: Total lung capacity: 88 % of predicted at 7.16 L Residual volume: 91 % of predicted at 2.72 L Slow vital capacity: 88 % of predicted at 4.45 L Expiratory reserve volume: 19 % of predicted at 0.29 L Diffusion capacity: Normal Impression: No obstructive or restrictive ventilatory defect. No bronchodilator response. Decreased expiratory reserve volume suggests extrathoracic restriction likely secondary to abdominal obesity. MTDD
== END 2024-02-13 09:55 | disposition home or self-care (01) ==
LOC: HO.RESP 09:54
PROVIDERS: PCP Family Medicine; Visit Provider Nurse Practitioner Family
DX: R06.00 Dyspnea, unspecified (principal)
CPT/HCPCS: 94010; 94640; 94727; 94729

== ENCOUNTER → 2024-02-24 10:30 | Outpatient (BNVA) | payer MEDICARE, SELFPAY | PROVIDERS: PCP Family Medicine; Visit Provider Nurse Practitioner Family ==

== ENCOUNTER 2024-03-04 09:50 | Outpatient (AMB) | payer MEDICARE, SELFPAY ==
--- NOTE | 2024-03-04 09:23 | MHC.OFFVIS ---
Vital Signs 03/04/24 09:56 Height 6 ft 2 in Weight 257 lb 2 oz BMI 33.0 BP 146/70 H Blood Pressure Location Rt brachial Position Sitting Pulse 71 Pulse Source Pulse Oximeter Pulse Oximetry (%) 95 Oxygen Delivery Method Room Air Intake Visit Reasons: dyspnea/ PFT follow up Electronic Scale Tester Required: Yes Electronic Scale Tester Language: Hebrew Electronic Scale Tester Name: [id number] Reece Allergies Seasonal Allergies Allergy (Verified 03/04/24 10:07) Itchy Eyes HPI HPI dyspnea/ PFT follow up: Details: Oswaldo is a pleasant 73 year old male, never smoker, with underlying chronic cough. He continues to report chronic cough for the last year and a half, occasionally productive with yellow to white sputum, wheezing and dyspnea on exertion. Today he presents to review RAST, PFT and CXR. [facility] Medical History Lumbar spondylosis Tubular adenoma Cataract Sinusitis SOB (shortness of breath) Lower back pain Hip pain, left RLS (restless legs syndrome) BPH (benign prostatic hyperplasia) Annual physical exam Rash Hearing loss Surgical History Hx of colonoscopy History of cataract surgery Family History Mother Diabetes Father Diabetes Liver cancer Social History Household Members Other:: , s/p CVA Housing: House Are you a primary district manager primary care sales to a significant other at home: Yes ( s/p CVA) Patient Tobacco Use Status: Never used Tobacco e-Cigarette/Vaping Use: Never Used Second Hand Smoke Exposure: No service: No Current occupational status: retired Current occupational exposures/hazards: No Cognitive needs: No Hearing needs: Yes (hearing) Vision needs: Yes (reading glasses) Review of Systems Const Denies chills, Denies excessive sweating, Denies fever(s), Denies headache(s) and Denies night sweats Eyes Denies dry eyes, Denies irritation and Denies itchy eyes ENT Reports Normal hearing present and Denies headache(s) Card Denies chest pain, Denies chest pain at rest, Denies chest pain with activity, Denies claudication, Denies leg edema, Denies orthopnea and Denies paroxysmal nocturnal dyspnea Resp Denies chest congestion, Denies pain on inspiration, Denies pain with cough and Denies stridor Musc Denies myalgias Neuro Reports Normal hearing present and Denies headache(s) Endo Denies excessive sweating Bonifacio/Lymph Denies lymphadenopathy Aller/Immun Denies itchy eyes and Denies seasonal rhinorrhea Physical Exam Vital Signs: Last Vital Signs Pulse 71 03/04/24 09:56 BP 146/70 H 03/04/24 09:56 Pulse Ox 95 03/04/24 09:56 Oxygen Delivery Method Room Air 03/04/24 09:56 BMI result Body Mass Index 33.0 Const General: cooperative, healthy appearing, comfortable, no acute distress, well developed and alert Nutritional Appearance: obese Orientation/consciousness: patient oriented x3 Limitations: no limitations HEENT Head: Yes normal to inspection, Yes normocephalic and Yes atraumatic Ears: hearing grossly normal bilaterally and external ears normal Eyes General: appearance normal, both eyes and all related structures Eyelids: Yes eyelids normal Sclerae: sclerae normal EOM: EOMs intact bilaterally Neck Neck: Yes normal visual inspection and Yes no lymphadenopathy Lymphatic: no lymphadenopathy noted Chest Chest palpation & inspection: normal inspection of the chest Resp Effort & Inspection: normal respiratory effort, able to speak in complete sentences, no audible wheezes, no cough, no stridor, not tachypneic, no tripod positioning and no use of accessory muscles Auscultation: clear to auscultation bilaterally Cardio Jugular venous distension: no JVD Rate: regular rate Rhythm: regular rhythm Skin Other: warm, dry General skin exam: no rashes or lesions noted Neuro General: patient oriented x3 Cranial nerves: Yes Normal hearing present Cognition (Neuro): normal cognition Gait exam (Neuro): Normal gait present Extrem General: Yes normal to inspection, Yes capillary refill normal, Yes no clubbing, cyanosis or edema and Yes no pedal edema Psych Appearance: grossly normal and well kempt Speech and movement: Normal speech and movement present and Clear speech present Affect: normal affect Attitude: cooperative Thought process: Normal thought process present Thought content: Normal thought content present Insight: Good insight present (Psych) Judgement: Good judgement present (Psych) Results Reviewed Results Reviewed: [address] [place] [address] XRay Report Signed Patient: Oswaldo Hernandez MR#: [id number] : 1950 Acct:[id number] Age/Sex: 73 / M ADM Date: 09/17/23 Loc: HO.XRNEHA Attending Dr: Sayra Barrios NP Ordering Physician: Sayra Barrios NP Date of Service: 09/17/23 Procedure(s): XR chest 2V Accession Number(s): [id number] cc: Amilcar Dao MD; Sayra Barrios NP~ EXAMINATION: XR CHEST CLINICAL INFORMATION: Dyspnea COMPARISON: 07/24/2021 TECHNIQUE: 2 views of the chest were obtained. FINDINGS: Minor apical pleural thickening. No significant abnormality is noted involving the heart, lungs, mediastinum, bony thorax or soft tissues. XR/XR chest 2V IMPRESSION: No acute cardiopulmonary disease or interval change. Dictated By: Meredith Paris MD Signed By: <Electronically signed by Meredith Paris MD in OV> 09/22/23 0827 DD/ 1408 TD/TT: Siding Coreboard Inspector: Assessment & Plan Assessment & Plan (1) Cough: Code(s): R05.9 - Cough, unspecified Category: Medical (2) Dyspnea: Code(s): R06.00 - Dyspnea, unspecified Category: Medical (3) Environmental allergies: Code(s): Z91.09 - Other allergy status, other than to drugs and biological substances Category: Medical (4) Vocal cord dysfunction: Code(s): J38.3 - Other diseases of vocal cords Category: Medical Plan Reviewed PFT which revealed no obstructive or restrictive ventilatory defect. No bronchodilator response. Decreased expiratory reserve volume suggests extrathoracic restriction likely secondary to abdominal obesity. Discussed importance of weight loss. RAST + birch trees, ragweed and cockroach. Reviewed ways to minimize exposures. CXR unremarkable. Will send for chest CT as patient with chronic cough. His symptoms could be related to underlying vocal cord dysfunction and has ENT later today for evaluation. Will also send for cardiology evaluation for dyspnea. All questions were answered and patient is in agreement of plan. Will follow-up to review results or sooner if needed. Orders: Orders CT chest wo IV con Today R05.9 - Cough, unspecified Referrals Cardiology Referral R06.00 - Dyspnea, unspecified Coding Level of Care Code Est Pt Level 4 (93880) Diagnoses Cough R05.9 Dyspnea R06.00 Environmental allergies Z91.09 Vocal cord dysfunction J38.3
[2024-03-04 09:56] VITALS: BP 146/70; PULSE 71; O2SAT 95; BMI 33.0
== END 2024-03-04 10:45 | disposition home or self-care (01) ==
PROVIDERS: PCP Family Medicine; Visit Provider Nurse Practitioner Family
DX: R05.9 Cough, unspecified (principal); R06.00 Dyspnea, unspecified; Z91.09 Other allergy status, other than to drugs and biological substances; J38.3 Other diseases of vocal cords
CPT/HCPCS: 99214

== ENCOUNTER → 2024-03-04 09:50 | Outpatient (BNVA) | payer MEDICARE, SELFPAY | PROVIDERS: PCP Family Medicine; Visit Provider Nurse Practitioner Family | DX: R05.3 Chronic cough (principal); R06.00 Dyspnea, unspecified; J38.3 Other diseases of vocal cords; Z91.09 Other allergy status, other than to drugs and biological substances | CPT/HCPCS: 99212 ==

== ENCOUNTER 2024-04-05 13:19 | Outpatient (AMB) | payer MEDICARE, SELFPAY ==
--- NOTE | 2024-04-05 13:21 | MHC.OFFVIS ---
Intake Visit Reasons: 2m/PVR/Med Review(Gemtesa) Intake Note: Patient is Present for 2M PVR/MED REVIEW Urology Med: Tadalafil, Terazosin, Tolterodine, ERTHYROMYCIN, VIBEGRON Antibiotic Allergy: None Blood Thinner: None PVR: 24ml TODAY'S PVR:0ML'S Rail Flaw Detector Operator Required: Yes Rail Flaw Detector Operator Language: Gabonese Accompanied by: Self / Same As Patient Allergies Seasonal Allergies Allergy (Verified 04/05/24 13:24) Itchy Eyes HPI Comments Details: David is a very pleasant Gabonese male. He is a patient of Dr. Gomez. He is seen for the following urologic conditions - lower urinary tract symptoms - overactive bladder - erectile dysfunction Gabonese translation provided by qualified medical economics consultant Has been on tolterodine 4 mg. Still waking multiple times at night. Bladder instability Follow-up from trial of gemtessa - could not afford will try Myrbetriq Discussed InterStim and pelvic floor exercise Prior Cystoscopy - Minimal prostate intrusion - 2+ trabeculated bladder Optimized with terazosin 5 mg and tolterodine 4 mg Lower urinary tract symptoms Initial symptoms include nocturia and urgency Current medications terazosin 5 mg Prior medications include doxazosin 4 mg PSA 07/14 1.1 Bladder US 08/13 Prostate Vol 40cc Cystoscopy 10/12 mildly enlarged prostate, significant trabeculation within bladder Erectile dysfunction Given combination lower urinary tract symptoms suggest tadalafil 5 mg daily Overactive bladder Urgency with tap Low-dose oxybutynin with swollen feet Switched to high-dose tolterodine Additional trial beta agonist PFSH Medical History Lumbar spondylosis Tubular adenoma Cataract Sinusitis SOB (shortness of breath) Lower back pain Hip pain, left RLS (restless legs syndrome) BPH (benign prostatic hyperplasia) Annual physical exam Rash Hearing loss Surgical History Hx of colonoscopy History of cataract surgery Family History Mother Diabetes Father Diabetes Liver cancer Social History Household Members Other:: , s/p CVA Housing: House Are you a primary care tech to a significant other at home: Yes ( s/p CVA) Patient Tobacco Use Status: Never used Tobacco e-Cigarette/Vaping Use: Never Used Second Hand Smoke Exposure: No service: No Current occupational status: retired Current occupational exposures/hazards: No Cognitive needs: No Hearing needs: Yes (hearing) Vision needs: Yes (reading glasses) Review of Systems Const Denies chills and Denies fever(s) Card Reports no additional complaints and Denies syncope Resp Denies cough GI Denies abdominal pain and Denies heartburn Reports as per HPI and Denies change in libido Neuro Denies syncope Psych Denies change in libido Endo Denies change in libido Physical Exam Const General: cooperative, healthy appearing, comfortable and no acute distress Orientation/consciousness: patient oriented x3 HEENT Face and sinus: Yes normal facial exam Mouth: moist mucous membranes Neck Neck: Yes normal visual inspection, Yes full ROM and Yes trachea midline Chest Chest palpation & inspection: normal inspection of the chest Resp Effort & Inspection: normal respiratory effort, able to speak in complete sentences and no respiratory distress GI Inspection: Yes normal to inspection Back/Spine/Pelvis Cervical Spine: normal cervical lordosis Thoracic/Lumbar Spine: thoracic and lumbar spine normal to inspection Skin General skin exam: no rashes or lesions noted Neuro General: patient oriented x3, gait normal, tone normal and moves all extremities Extrem General: Yes normal to inspection and Yes capillary refill normal Office Procedures Post Void Residual Post Residual Void Post Void Residual (PVR): 0 [id number] Void Residual by ultrasound Results AMB Urinalysis, Automated UA Leukoctes 0 Tammy/uL Last Edit by MINDY Thompson on 04/05/24 13:40 UA Nitrite Negative Last Edit by MINDY Thompson on 04/05/24 13:40 UA Urobilinogen 0.2 mg/dL Last Edit by MINDY Thompson on 04/05/24 13:40 UA Protein 0 mg/dL Last Edit by MINDY Thompson on 04/05/24 13:40 UA pH 6.0 Last Edit by MINDY Thompson on 04/05/24 13:40 UA Blood 0 Frankie/uL Last Edit by MINDY Thompson on 04/05/24 13:40 UA Specific [place] 1.015 Last Edit by MINDY Thompson on 04/05/24 13:40 UA Ketone Negative Last Edit by MINDY Thompson on 04/05/24 13:40 UA Bilirubin 0 mg/dL Last Edit by MINDY Thompson on 04/05/24 13:40 UA Glucose 0 mg/dL Last Edit by MINDY Thompson on 04/05/24 13:40 Results Reviewed Results Reviewed: Laboratory Last Values Urine pH (Auto) 6.0 04/05/24 13:39 Specific [place] (Auto) 1.015 04/05/24 13:39 Urine Protein (Auto) 0 mg/dL 04/05/24 13:39 Glucose (UA)(Auto) 0 mg/dL 04/05/24 13:39 Urine Ketones (Auto) Negative 04/05/24 13:39 Urine Blood (Auto) 0 Frankie/uL 04/05/24 13:39 Urine Nitrite (Auto) Negative 04/05/24 13:39 Urine Bilirubin (Auto) 0 mg/dL 04/05/24 13:39 Urine Urobilinogen (Auto) 0.2 mg/dL 04/05/24 13:39 Leukocyte Esterase (Auto) 0 Tammy/uL 04/05/24 13:39 Assessment & Plan Assessment & Plan (1) Overactive bladder: Code(s): N32.81 - Overactive bladder Category: Medical Plan Trial Myrbetriq Follow-up 2 months Orders: Orders AMB Urinalysis Automated Today Z13.9 - Encounter for screening, unspecified Medications: New Myrbetriq ER (mirabegron) 25 mg PO DAILY 30 days 30 tabs 1RF NS N32.81 - Overactive bladder Discontinued vibegron Discontinued Reason: Patient Completed Course 75 mg PO DAILY 30 days 30 tabs 1RF R35.0 - Frequency of micturition Patient Instructions: Imaging studies, laboratory and physical exam results were discussed and reviewed in detail. No major barriers to patient understanding were identified. An opportunity to ask questions regarding the treatment plan was provided. All questions were answered. The patient expressed understanding and agreement with the above treatment plan. The patient is aware they should contact our office by phone for worsening of their current condition or the appearance of new urologic symptoms. Compliance is encouraged with any medications and followup testing that is ordered. It is a privilege to participate in the urologic care of your patient. If you have any questions or concerns regarding treatment for the above conditions, or other urologic issues, please do not hesitate to contact me. The office telephone contact is [phone]. This note is constructed using voice recognition software. While every effort has been made to ensure accuracy religious education director errors may have been included. Yours sincerely, Dr Julian Robert MD, [facility] - Urology Providers of Expert, Compassionate Care for the Genitourinary System Coding Level of Care Code Est Pt Level 4 (84809) Diagnoses Overactive bladder N32.81 CPT Codes Post Residual Void - PVR CPT Code: 27414-Knfo Void Residual by ultrasound ([id number])
== END 2024-04-05 14:08 | disposition home or self-care (01) ==
PROVIDERS: PCP Family Medicine; Visit Provider Urology
DX: Z13.9 Encounter for screening, unspecified (principal); N32.81 Overactive bladder
CPT/HCPCS: 99214

== ENCOUNTER → 2024-04-05 13:19 | Outpatient (BNVA) | payer MEDICARE, SELFPAY | PROVIDERS: PCP Family Medicine; Visit Provider Urology | DX: N40.1 Benign prostatic hyperplasia with lower urinary tract symptoms (principal); N13.8 Other obstructive and reflux uropathy; N32.81 Overactive bladder; N52.9 Male erectile dysfunction, unspecified | CPT/HCPCS: 51798; 81003; 99212 ==

== ENCOUNTER 2024-05-16 11:49 | Outpatient (REF) | payer MEDICARE, SELFPAY ==
[2024-05-16 14:39] LABS: Hematocrit 46.1 % (42.0-52.0); Mean Corpuscular HGB Conc 34.7 g/dl (31.0-36.0); Mean Corpuscular Hemoglobin 30.5 pg (27.0-33.0); Mean Platelet Volume 10.4 fL (9.4-12.4); Platelet Count 159 X10*3/uL (160-400); Red Blood Count 5.24 X10*6/uL (4.60-5.80); Red Cell Distribution Width 12.7 % (11.0-16.0); White Blood Count 5.8 X10*3/uL (4.8-10.8)
[2024-05-16 14:46] LABS: Prothrombin Time 11.1 SEC (10.9-12.4)
[2024-05-16 15:29] LABS: Anion Gap 13 (12-20); Blood Urea Nitrogen 16 mg/dL (9-16); Calcium 9.5 mg/dL (8.4-10.2); Carbon Dioxide 25 mmol/L (22-29); Chloride 104 mmol/L (96-108); Estimated Glomerular Filt Rate > 60; Glucose Random 93 mg/dL (60-115); Potassium 4.3 mmol/L (3.3-5.1); Sodium 138 mmol/L (135-145)
[2024-05-16 15:30] LABS: B Type Natriuretic Peptide 27 pg/mL (<100)
== END 2024-05-16 11:50 | disposition home or self-care (01) ==
LOC: HO.LAB 11:49
PROVIDERS: PCP Family Medicine; Visit Provider Internal Medicine
DX: I25.10 Atherosclerotic heart disease of native coronary artery without angina pectoris (principal); R07.9 Chest pain, unspecified; R06.00 Dyspnea, unspecified; R07.2 Precordial pain; R06.02 Shortness of breath
CPT/HCPCS: 36415; 80048; 83880; 85027; 85610; 93005; 99212

== ENCOUNTER 2024-05-16 11:49 | Outpatient (AMB) | payer MEDICARE, SELFPAY ==
[2024-05-16 12:39] VITALS: BP 126/78; PULSE 58; BMI 32.3
--- NOTE | 2024-05-16 12:39 | MHC.OFFVIS ---
Vital Signs 05/16/24 12:39 Height 6 ft 2 in Weight 251 lb 12.286 oz BMI 32.3 BP 126/78 Blood Pressure Location Lt brachial Position Sitting Pulse 58 Intake Visit Reasons: Dyspnea (cardio) Expansion Joint Finisher Required: Yes Expansion Joint Finisher Name: [id number] Accompanied by: Self / Same As Patient Allergies Seasonal Allergies Allergy (Verified 04/05/24 13:24) Itchy Eyes Medication List - Last Reconciled 05/16/24 by Prince Dumont MD back brace As directed miscellaneous medical supply Right AFO, As directed, 999 days miscellaneous medical supply Lumbar Support Belt, Daily As directed, 999 days tolterodine ER 2 mg PO DAILY 90 days HPI Comments Details: Oswaldo returns for follow-up after about 2 years. Previously seen for shortness of breath and chest pain. At that time, had an echocardiogram/stress test which were unremarkable. He states that he still feels the same and continues to feel short of breath with any form of physical activity. He also describes left-sided chest discomfort but difficult to assess that part. Repeatedly asked him about exertional components extra but he is quite vague about it. He is only Somali speaking and hence needs a american sign language interpreter. Even the american sign language interpreter states that he is hard to understand. No previously diagnosed coronary disease or myocardial infarction or cardiomyopathy. 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 to a significant other at home: Yes ( s/p CVA) Patient Tobacco Use Status: Never used Tobacco e-Cigarette/Vaping Use: Never Used Second Hand Smoke Exposure: No service: No Current occupational status: retired Current occupational exposures/hazards: No Cognitive needs: No Hearing needs: Yes (hearing) Vision needs: Yes (reading glasses) Review of Systems Const Denies chills, Denies fatigue, Denies fever(s), Denies weight gain and Denies weight loss ENT Denies dizziness Card Reports chest pain, Denies leg edema, Denies lightheadedness, Denies palpitations, Reports dyspnea, Denies dyspnea on exertion, Denies orthopnea and Denies other Resp Denies cough, Reports dyspnea and Denies dyspnea on exertion GI Denies hematochezia and Denies change in stool character Musc Denies abnormal gait, Denies muscle weakness, Denies numbness, Denies radiating pain into limb and Denies tingling Neuro Denies abnormal gait, Denies dizziness, Denies numbness and Denies tingling Endo Denies fatigue and Denies palpitations Physical Exam Vital Signs: Last Vital Signs Pulse 58 05/16/24 12:39 BP 126/78 05/16/24 12:39 BMI result Body Mass Index 32.3 Const General: comfortable and no acute distress Orientation/consciousness: patient oriented x3 HEENT Other: Unremarkable Head: Yes normal to inspection Neck Neck: Yes normal visual inspection Chest Chest palpation & inspection: normal inspection of the chest Resp Auscultation: clear to auscultation bilaterally Cardio Palpation: normal PMI Heart sounds: S1 normal heart sound present, S2 normal heart sound present, no gallops, no murmurs and no rubs GI Palpation (GI): Soft to palpation Back/Spine/Pelvis Other: unremarkable Skin General skin exam: no rashes or lesions noted Neuro General: patient oriented x3 Extrem General: Yes normal to inspection Psych Mental Status: mental status grossly normal Office Procedures EKG Details: EKG with underlying sinus rhythm at 58/Min; no significant ST-T changes; [place]. [id number], Complete Assessment & Plan Assessment & Plan (1) SOB (shortness of breath): Code(s): R06.02 - Shortness of breath Category: Medical (2) Precordial chest pain: Code(s): R07.2 - Precordial pain Category: Medical Plan Cardiac studies reviewed from 2021. Echocardiogram with LVEF of 60-65%. No wall motion abnormalities and normal diastolic function. No significant valvular findings. Myocardial perfusion imaging study shows normal perfusion. Otherwise, chest x-ray from September this year shows minor apical pleural thickening but otherwise unremarkable. PFTs suggest extra thoracic restriction, possibly from abdominal obesity. Overall, unexplained shortness of breath/chest pain, possibly exertional but difficult to clarify because of language barrier. We will proceed with a diagnostic left/right heart catheterization for further evaluation. Discussed with patient using Somali american sign language interpreter and he agrees with the plan. Orders: Orders Cardiac Cath LT Diagnostic Today I25.10 - Atherosclerotic heart disease of [place] coronary artery without angina pectoris Prothrombin Time INR Today R06.00 - Dyspnea, unspecified, R07.9 - Chest pain, unspecified Cardiac Cath RT Diagnostic Today I25.10 - Atherosclerotic heart disease of [place] coronary artery without angina pectoris Complete Blood Count no Diff Today I25.10 - Atherosclerotic heart disease of [place] coronary artery without angina pectoris, R06.00 - Dyspnea, unspecified Basic Metabolic Panel Today R06.00 - Dyspnea, unspecified, R07.9 - Chest pain, unspecified B Type Natriuretic Peptide Today R06.00 - Dyspnea, unspecified Coding Level of Care Code Est Pt Level 4 (45697) Diagnoses SOB (shortness of breath) R06.02 Precordial chest pain R07.2 CPT Codes EKG - CPT: 73519-[id number], Complete ([id number])
== END 2024-05-16 13:26 | disposition home or self-care (01) ==
PROVIDERS: PCP Family Medicine; Visit Provider Internal Medicine
DX: R06.02 Shortness of breath (principal); R07.2 Precordial pain
CPT/HCPCS: 93010; 99214

== ENCOUNTER 2024-05-23 13:32 | Outpatient (REF) | payer MEDICARE, SELFPAY ==
[2024-05-23 17:54] LABS: Appearance Urine Clear; Color Urine Yellow; Glucose Urine UA Negative (Negative); Leukocyte Esterase Urine Negative (Negative); Nitrite Urine Negative (Negative); Specific Gravity - Urine 1.015 (1.005-1.025); Urine Blood Negative (Negative); Urine Ketones Negative (Negative); Urine Protein Negative (Neg-Trace)
[2024-05-23 18:05] LABS: Anion Gap 12 (12-20); Blood Urea Nitrogen 12 mg/dL (9-16); Calcium 9.6 mg/dL (8.4-10.2); Carbon Dioxide 28 mmol/L (22-29); Chloride 105 mmol/L (96-108); Estimated Glomerular Filt Rate > 60; Glucose Random 97 mg/dL (60-115); Potassium 4.3 mmol/L (3.3-5.1); Sodium 141 mmol/L (135-145)
[2024-05-23 18:24] LABS: Creatinine Urine 111.01 mg/dL; Microalbumin Urine < 5.0 mg/L
[2024-05-24 14:28] LABS: Immunoglobulin E 159 kU/L (<OR=114)
== END 2024-05-23 13:33 | disposition home or self-care (01) ==
LOC: HO.WFDLDS 13:32
PROVIDERS: Referring Provider Nurse Practitioner Family; Visit Provider Family Medicine
DX: Z00.00 Encounter for general adult medical examination without abnormal findings (principal); I10 Essential (primary) hypertension; Z91.09 Other allergy status, other than to drugs and biological substances
CPT/HCPCS: 36415; 80048; 81003; 82570; 82785

== ENCOUNTER 2024-05-27 10:17 | Outpatient (AMB) | payer MEDICARE, SELFPAY ==
--- NOTE | 2024-05-27 10:23 | MHC.PC.OV ---
Vital Signs 05/27/24 10:26 Height 6 ft 2 in Weight 258 lb 4 oz BMI 33.2 BP 110/64 Blood Pressure Location Lt brachial Position Sitting Respiration 16 Pulse 67 Pulse Source Pulse Oximeter Temp 97.9 F Temp Source Oral Pulse Oximetry (%) 93 Oxygen Delivery Method Room Air Intake Visit Reasons: fu blood work Intake Note: f/u blood work Specialized Language Instructor Required: Yes Specialized Language Instructor Language: Marshallese Specialized Language Instructor Name: [email or web address] ([id number]) Information Interpreted: clinical only Allergies Seasonal Allergies Allergy (Verified 05/27/24 10:25) Itchy Eyes Tobacco use date assessed: 11/19/23 Dental Screening Dental Screen Date: 06/04/23 HPI fu blood work HPI Details 73 y/o male presents to f/u labs. Also f/u precordial chest pain. Had seen Dr. Dumont Cardiology 05/16/24. Overall unexplained shortness of breath/chest pain. They plan to proceed with diagnostic L/R heart cath for further evaluation. Has an appt. with Cardiology in about 3 weeks. Has complains of sinus congestion. 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 Ming Hamilton, Vani Pike, Gerald Sofia and colleagues, with an educational kusum from [employer]. Review of Systems Const Denies chills, Denies fatigue, Denies fever(s), Denies headache(s) and Denies weakness ENT Details: Sinus congestion Denies dizziness and Denies headache(s) Card Denies chest pain, Denies lightheadedness, Denies dyspnea and Denies other (Palpitations) Resp Denies cough, Denies dyspnea, Denies wheezing and Denies other ( shortness of breath) Musc Denies numbness and Denies tingling Neuro Denies dizziness, Denies headache(s), Denies numbness, Denies tingling, Denies paresthesias and Denies weakness Psych Denies anxiety and Denies depression Endo Denies fatigue Aller/Immun Denies wheezing Physical exam (Primary Care) Vital Signs: Last Vital Signs Temp 97.9 F 05/27/24 10:26 Pulse 67 05/27/24 10:26 Resp 16 05/27/24 10:26 BP 110/64 05/27/24 10:26 Pulse Ox 93 05/27/24 10:26 Oxygen Delivery Method Room Air 05/27/24 10:26 BMI result Body Mass Index 33.2 Tobacco/Smoking Status: Tobacco use Status Tobacco use date assessed 11/19/23 05/27/24 10:30 Patient Tobacco Use Status Never used Tobacco 05/27/24 10:30 e-Cigarette/Vaping Use Never Used 05/27/24 10:30 Thrive Assessment: Date of Thrive Assessment Date Thrive assessed 06/04/23 05/27/24 10:30 Const General: no acute distress and well developed Nutritional Appearance: well nourished Orientation/consciousness: patient oriented x3 HENMT Head: Yes normocephalic and Yes atraumatic Eyes General: appearance normal, both eyes and all related structures Pupils: Equal, round and reactive pupils present EOM: EOMs intact bilaterally Resp Effort & Inspection: normal respiratory effort Auscultation: clear to auscultation bilaterally Cardio Rate: regular rate Rhythm: regular rhythm Heart sounds: S1 normal heart sound present, S2 normal heart sound present, no gallops, no murmurs and no rubs Neuro General: patient oriented x3 and gait normal Cranial nerves: Yes Equal, round and reactive pupils present Psych Affect: normal affect Coding Level of Care Code Est Pt Level 4 (55334) Diagnoses Precordial chest pain R07.2 SOB (shortness of breath) R06.02 Sinus congestion R09.81 Assessment & Plan Assessment & Plan (1) Precordial chest pain: Code(s): R07.2 - Precordial pain Category: Medical Plan: Cardiology?workup?has?been?unremarkable. He?does?have?an?appointment?for?follow-up?with?Cardiology?on?.??There?is?plan?to?get?an?angiogram. Follow-up?with?Cardiology?as?recommended (2) SOB (shortness of breath): Code(s): R06.02 - Shortness of breath Category: Medical Plan: Patient?has?ongoing?shortness?of?breath. As?above,?cardiac?workup?is?underway?though?has?been?unremarkable?so?far. Has?been?seen?by?pulmonary?medicine?and?PFTs?do?show?some?restrictive?disease.??Does?have?some?pleural?thickening?but?also?is?overweight?in?these?could?causes?for?restrictive?disease. He?has?a?chest?CT?outstanding.??Patient?says?he?has?not?been?contacted?about?this.??He?is?unable?to?easily?answer?the?phone?and?communicate?due?to?language?barrier.??Scheduling?should?be?with?his?son?whose?number?is?on?file.??Will?ask?the?office?to?g et?this?test?scheduled?for?him?and?he?can?follow-up?with?me?and?also?Pulmonary?Medicine. I?did?advise?he?continue?to?work?on?weight?loss?as?well He?does?have?some?allergies?also?and?we?briefly?discussed?these.??Follow-up?with?Pulmonary?Medicine (3) Sinus congestion: Code(s): R09.81 - Nasal congestion Category: Medical Plan: Give?him?a?script?for?Flonase Orders: Referrals Urology Referral N32.81 - Overactive bladder, N40.0 - Benign prostatic hyperplasia without lower urinary tract symptoms, R33.9 - Retention of urine, unspecified Medications: New fluticasone propionate 50 mcg/actuation (Flonase Allergy Relief) administer into each nostril 1 spray intranasal Q12H 30 days 16 grams 2RF
[2024-05-27 10:26] VITALS: BP 110/64; PULSE 67; RESP 16; TEMP 36.6; O2SAT 93; BMI 33.2
== END 2024-05-27 11:15 | disposition home or self-care (01) ==
PROVIDERS: PCP Family Medicine; Visit Provider Family Medicine
DX: R07.2 Precordial pain (principal); R06.02 Shortness of breath; R09.81 Nasal congestion

== ENCOUNTER → 2024-05-27 10:17 | Outpatient (BNVA) | payer MEDICARE, SELFPAY | PROVIDERS: PCP Family Medicine; Visit Provider Family Medicine | DX: R07.2 Precordial pain (principal); R06.02 Shortness of breath; R09.81 Nasal congestion | CPT/HCPCS: 99212 ==

== ENCOUNTER 2024-06-24 12:43 | Outpatient (AMB) | payer MEDICARE, SELFPAY ==
[2024-06-24 12:55] VITALS: BP 90/72; PULSE 76; BMI 32.4
--- NOTE | 2024-06-24 12:55 | MHC.OFFVIS ---
Vital Signs 06/24/24 12:55 Height 6 ft 2 in Weight 252 lb 3.341 oz BMI 32.4 BP 90/72 Blood Pressure Location Lt brachial Position Sitting Pulse 76 Pulse Source Pulse Oximeter Intake Visit Reasons: Discuss Cardiac Cath Quartz Miner Blasting Required: No Quartz Miner Blasting Services: [employer] Present Quart[employer]er [employer]asting Name: Amilcar (son) Entry Operator: Entry Operator Present Accompanied by: Son Allergies Seasonal Allergies Allergy (Verified 06/24/24 13:00) Itchy Eyes Medication List - Last Reconciled 06/24/24 by Joi Anne NP-Min[facility] back brace As directed miscellaneous medical supply Right AFO, As directed, 999 days miscellaneous medical supply Lumbar Support Belt, Daily As directed, 999 days HPI HPI Discuss Cardiac Cath: Details: Oswaldo is a 73-year-old male with past medical history of hearing impairment, hyperlipidemia, GERD, prior cardiac evaluation, 2021, for chest discomfort and shortness of breath without cardiac findings. He continues to report symptoms and cardiac catheterization was being planned. Much time was spent on his last visit going over the procedure and plan of care. He was scheduled for 05/31/2024 and was no-show for his cardiac catheterization. At this time he is here in the office again, this time with his son to go over cardiac catheterization procedure and to discuss all questions about it. Today he reports that he does get periodic discomfort in his chest which feels like pressure. It happens randomly with physical activity. It is not consistent or worsening with time. He does have shortness of breath with physical activity which also causes concern. This seems to bother him more frequently. No PND or edema. No palpitations, racing heart, dizzy spells, falling. He ambulates steady. He has no known history of heart disease. His son is present and he is it assisting with Irish translation. [facility] Medical History Lumbar spondylosis Tubular adenoma Cataract Sinusitis SOB (shortness of breath) Lower back pain Hip pain, left RLS (restless legs syndrome) BPH (benign prostatic hyperplasia) Annual physical exam Rash Hearing loss Surgical History Hx of colonoscopy History of cataract surgery Family History Mother Diabetes Father Diabetes Liver cancer Social History Household Members Other:: , s/p CVA Housing: House Are you a primary animal care specialist to a significant other at home: Yes ( s/p CVA) Patient Tobacco Use Status: Never used Tobacco e-Cigarette/Vaping Use: Never Used Second Hand Smoke Exposure: No service: No Current occupational status: retired Current occupational exposures/hazards: No Cognitive needs: No Hearing needs: Yes (hearing) Vision needs: Yes (reading glasses) Review of Systems Const All systems reviewed & are unremarkable except as noted in HPI and below ENT Denies dizziness Card Reports chest pain, Reports chest pain at rest, Denies chest pain with activity, Denies rapid heart rate, Denies pedal edema, Denies edema, Denies leg edema, Denies lightheadedness, Denies palpitations, Reports dyspnea, Reports dyspnea on exertion and Denies orthopnea Resp Denies cough, Reports dyspnea and Reports dyspnea on exertion GI Denies hematochezia and Denies change in stool character Musc Denies abnormal gait, Denies limited range of motion, Denies muscle cramps, Denies muscle weakness, Denies numbness, Denies radiating pain into limb, Denies stiffness and Denies tingling Neuro Denies abnormal gait, Denies dizziness, Denies numbness and Denies tingling Endo Denies palpitations Physical Exam Vital Signs: Last Vital Signs Pulse 76 06/24/24 12:55 BP 90/72 06/24/24 12:55 BMI result Body Mass Index 32.4 Const General: cooperative, healthy appearing, comfortable and no acute distress Orientation/consciousness: patient oriented x3 Neck Neck: Yes normal visual inspection Resp Effort & Inspection: normal respiratory effort Auscultation: clear to auscultation bilaterally, no rales, no rhonchi and no wheezes Cardio Rate: regular rate Rhythm: regular rhythm Heart sounds: S1 normal heart sound present, S2 normal heart sound present, no murmurs and no rubs Neuro General: patient oriented x3 Extrem General: Yes normal to inspection Psych Appearance: grossly normal Mental Status: mental status grossly normal Speech and movement: Normal speech and movement present Assessment & Plan Assessment & Plan (1) Precordial chest pain: Code(s): R07.2 - Precordial pain Category: Medical Plan: Prior reports of chest discomfort and shortness of breath with activity. Echocardiogram done 03/10/2022 showed EF 60-65%, no valve abnormalities and no regional wall motion abnormalities. He had a pharmacological nuclear stress test done 03/13/2022 showing normal myocardial perfusion imaging. A chest x-ray was done on 09/17/2023 showing no active disease. His last EKG 05/16/2024 showed sinus bradycardia, can not exclude lateral infarct, rate 58. He has cardiac risk factors of age and hyperlipidemia. On last visit he reported ongoing symptoms of shortness of breath with activity and intermittent chest discomfort with activity. For further evaluation a cardiac catheterization was planned. Much time was spent going over the procedure in details on that visit then patient was no-show for the actual procedure on 05/31/2024. He is in the office today again going over the cardiac catheterization procedure in detail. Used the chart in the room to discuss the procedure, risks and potential findings. The need for possible coronary stent was discussed. He was informed that if he does have a stent placed he will stay overnight. His son is present and states full understanding of what I am explaining. He is describing all these details to his father in Irish and patient is now fully willing to proceed with cardiac catheterization without restriction. I had his son speak with our semiconductor development technician Elvie to go over the test date and details. Patient is going today to have his preprocedure labs drawn. His cardiology follow-up will be 2 weeks postprocedure. Will change his catheterization order to cardiac catheterization, question PCI, also will be having right heart diagnostic cath as previously ordered. (2) SOB (shortness of breath): Code(s): R06.02 - Shortness of breath Category: Medical Plan: As above. No clinical signs of heart failure on examination today. (3) Language barrier to communication: Code(s): Z78.9 - Other specified health status Category: Medical Plan: Irish speaking. Son is present today and helping with translation. Plan Time spent on chart review, documentation, interview and assessment Orders: Orders Cardiac Cath LT w PCI Today R06.02 - Shortness of breath, R07.2 - Precordial pain Basic Metabolic Panel Today R07.9 - Chest pain, unspecified Complete Blood Count Auto Diff Today R07.9 - Chest pain, unspecified Prothrombin Time INR Today R07.9 - Chest pain, unspecified Coding Level of Care Code Est Pt Level 4 (55144) Complex EM visit Add On G2211 Diagnoses Precordial chest pain R07.2 SOB (shortness of breath) R06.02 Language barrier to communication Z78.9 Time Spent (min) 36
== END 2024-06-24 13:37 | disposition home or self-care (01) ==
PROVIDERS: PCP Family Medicine; Visit Provider Nurse Practitioner Family
DX: R07.2 Precordial pain (principal); R06.02 Shortness of breath; Z78.9 Other specified health status
CPT/HCPCS: 99214; G2211

== ENCOUNTER 2024-06-24 12:43 | Outpatient (REF) | payer MEDICARE, SELFPAY ==
[2024-06-24 14:07] LABS: MANUAL DIFF FLAG NO
[2024-06-24 14:13] LABS: Basophils Absolute Auto 0.1 X10*3/uL (0.0-0.2); Basophils Percent Auto 1.1 % (0-2); Eosinophils Absolute Auto 0.4 X10*3/uL (0.0-0.4); Eosinophils Percent Auto 5.7 % (0-4); Hematocrit 49.1 % (42.0-52.0); Hemoglobin 16.4 g/dl (14.0-18.0); Imm Gran Abs Auto 0.02 X10*3/uL (0.00-0.03); Imm Gran Pct Auto 0.3 % (0.0-0.4); Lymphocytes Absolute Auto 2.2 X10*3/uL (1.2-4.9); Lymphocytes Percent Auto 31.2 % (20-40); Mean Corpuscular HGB Conc 33.4 g/dl (31.0-36.0); Mean Corpuscular Hemoglobin 29.9 pg (27.0-33.0); Mean Corpuscular Volume 89.4 fL (80.0-98.0); Mean Platelet Volume 9.8 fL (9.4-12.4); Monocytes Absolute Auto 0.8 X10*3/uL (0.1-1.2); Monocytes Percent Auto 11.4 % (2-11); Neutrophils Absolute Auto 3.5 x10*3/uL (2.0-8.3); Neutrophils Percent Auto 50.3 % (45-73); Platelet Count 164 X10*3/uL (160-400); Red Blood Count 5.49 X10*6/uL (4.60-5.80)
[2024-06-24 14:24] LABS: Prothrombin Time 11.2 SEC (10.9-12.4)
[2024-06-24 14:48] LABS: Anion Gap 11 (12-20); Blood Urea Nitrogen 16 mg/dL (9-16); Calcium 9.5 mg/dL (8.4-10.2); Carbon Dioxide 27 mmol/L (22-29); Chloride 107 mmol/L (96-108); Estimated Glomerular Filt Rate > 60; Glucose Random 92 mg/dL (60-115); Potassium 4.3 mmol/L (3.3-5.1); Sodium 141 mmol/L (135-145)
== END 2024-06-24 12:44 | disposition home or self-care (01) ==
LOC: HO.LAB 12:43
PROVIDERS: PCP Family Medicine; Visit Provider Nurse Practitioner Family
DX: R07.9 Chest pain, unspecified (principal); R07.2 Precordial pain; Z78.9 Other specified health status
CPT/HCPCS: 36415; 80048; 85025; 85610; 99212

== ENCOUNTER → 2024-07-12 23:59 | Outpatient (BNV) | payer MEDICARE, SELFPAY | PROVIDERS: PCP Family Medicine; Visit Provider Internal Medicine Cardiovascular Disease | DX: I20.89 Other forms of angina pectoris (principal) | CPT/HCPCS: 93458; 99152 ==

== ENCOUNTER 2024-09-09 15:11 | Outpatient (REF) | payer MEDICARE, SELFPAY ==
[2024-09-09 18:12] LABS: Anion Gap 21 (12-20); Blood Urea Nitrogen 13 mg/dL (9-16); Calcium 9.7 mg/dL (8.4-10.2); Carbon Dioxide 23 mmol/L (22-29); Chloride 98 mmol/L (96-108); Estimated Glomerular Filt Rate > 60; Glucose Random 77 mg/dL (60-115); Potassium 3.5 mmol/L (3.3-5.1); Sodium 138 mmol/L (135-145)
[2024-09-09 18:38] LABS: Prostate Specific Antigen Scr 1.48 ng/mL (<0.05-4.0)
== END 2024-09-09 15:12 | disposition home or self-care (01) ==
LOC: HO.WFDLDS 15:11
PROVIDERS: Visit Provider Family Medicine
DX: Z00.00 Encounter for general adult medical examination without abnormal findings (principal); Z12.5 Encounter for screening for malignant neoplasm of prostate
CPT/HCPCS: 36415; 80048; 84153

== ENCOUNTER 2024-09-20 09:40 | Outpatient (AMB) | payer MEDICARE, SELFPAY ==
--- NOTE | 2024-09-20 09:52 | MHC.PC.OV ---
Vital Signs 09/20/24 09:54 Height 6 ft 2 in Weight 238 lb 8 oz BMI 30.6 BP 110/58 L Blood Pressure Location Rt brachial Position Sitting Respiration 14 Pulse 60 Pulse Source Pulse Oximeter Temp 97.9 F Temp Source Oral Pulse Oximetry (%) 95 Oxygen Delivery Method Room Air Intake Visit Reasons: going over blood work Intake Note: patient is scheduled for for lab review Materials Planner Required: No Allergies Seasonal Allergies Allergy (Verified 09/20/24 09:54) Itchy Eyes Medication List - Last Reconciled 09/20/24 by Amilcar Dao MD back brace As directed miscellaneous medical supply Right AFO, As directed, 999 days miscellaneous medical supply Lumbar Support Belt, Daily As directed, 999 days Tobacco use date assessed: 11/19/23 Dental Screening Dental Screen Date: 06/04/23 HPI going over blood work HPI Details 74 y/o male presents to f/u labs, chronic conditions. Had seen Joi Anne 06/24/24 for chest pain. Cardiac cath was planned - need for possible coronary stent was discussed. Cardiac cath showed no significant coronary disease noted. Most recent labs were fine. Hx of elevated lipids. HPI Comments History of Present Illness Details Documentation assistance for Amilcar Dao MD, was provided by Augusto Chambers,? Yard Conductor on 09/20/2024 at 10:19 AM ADÁN. I, Dr. Dao, have read, observed, and verified documentation. ?? PFSH Medical History Lumbar spondylosis Tubular adenoma Cataract Sinusitis SOB (shortness of breath) Lower back pain Hip pain, left RLS (restless legs syndrome) BPH (benign prostatic hyperplasia) Annual physical exam Rash Hearing loss Surgical History Hx of colonoscopy History of cataract surgery Family History Mother Diabetes Father Diabetes Liver cancer Social History Household Members Other:: , s/p CVA Housing: House Are you a primary insurance healthcare representative to a significant other at home: Yes ( s/p CVA) Patient Tobacco Use Status: Never used Tobacco e-Cigarette/Vaping Use: Never Used Second Hand Smoke Exposure: No service: No Current occupational status: retired Current occupational exposures/hazards: No Cognitive needs: No Hearing needs: Yes (hearing) Vision needs: Yes (reading glasses) Questionnaire Thrive Questionnaire Date Thrive assessed: 06/04/23 TAMMY-7 AMB Questionnaire TAMMY-7 Date TAMMY - 7 assessed: 06/04/23 Source: Developed by Drs. Ming Hamilton, Vani Pike, Gerald Sofia and colleagues, with an educational kusum from [employer]. Review of Systems Const Denies chills, Denies fatigue, Denies fever(s), Denies headache(s) and Denies weakness ENT Denies dizziness and Denies headache(s) Card Denies dyspnea Resp Denies cough, Denies dyspnea, Denies wheezing and Denies other (shortness of breath) Musc Denies numbness and Denies tingling Neuro Denies dizziness, Denies headache(s), Denies numbness, Denies tingling and Denies weakness Psych Denies anxiety and Denies depression Endo Denies fatigue Aller/Immun Denies wheezing Physical exam (Primary Care) Vital Signs: Last Vital Signs Temp 97.9 F 09/20/24 09:54 Pulse 60 09/20/24 09:54 Resp 14 09/20/24 09:54 BP 110/58 L 09/20/24 09:54 Pulse Ox 95 09/20/24 09:54 Oxygen Delivery Method Room Air 09/20/24 09:54 BMI result Body Mass Index 30.6 Tobacco/Smoking Status: Tobacco use Status Tobacco use date assessed 11/19/23 09/20/24 09:58 Patient Tobacco Use Status Never used Tobacco 09/20/24 09:58 e-Cigarette/Vaping Use Never Used 09/20/24 09:58 Thrive Assessment: Date of Thrive Assessment Date Thrive assessed 06/04/23 09/20/24 09:58 Const General: well developed; No acute distress Nutritional Appearance: well nourished Orientation/consciousness: patient oriented x3 HENMT Head: Yes normocephalic and Yes atraumatic Eyes General: appearance normal, both eyes and all related structures Pupils: Equal, round and reactive pupils present EOM: EOMs intact bilaterally Resp Effort & Inspection: normal respiratory effort Neuro General: patient oriented x3 and gait normal Cranial nerves: Yes Equal, round and reactive pupils present Psych Affect: normal affect Coding Level of Care Code Est Pt Level 4 (93781) Diagnoses Chest pain R07.9 Sinus congestion R09.81 Hyperlipidemia E78.5 Screening for prostate cancer Z12.5 Assessment & Plan Assessment & Plan (1) Chest pain: Code(s): R07.9 - Chest pain, unspecified Category: Medical Plan: CP & SOB have resolved. Still?has?significant secretions/mucus?production Recent Cardiac Angiogram was negative. If sxs return would have him seem (2) Sinus congestion: Code(s): R09.81 - Nasal congestion Category: Medical Plan: Sinus?congestion?and?mucus?production?with?postnasal?drip?and?some throat?clearing. Brings?up?thick?mucus. Trial?Mucinex?and?Flonase If?not?improving,?may?need?to?see?ear?nose?and?throat?again (3) Hyperlipidemia: Code(s): E78.5 - Hyperlipidemia, unspecified Category: Medical Plan: Patient?has?had?elevated?LDL?cholesterol?the?past Recent?angiogram?was?negative Will?recheck?lipids?and?if?still?elevated?will?discuss?medication (4) Screening for prostate cancer: Code(s): Z12.5 - Encounter for screening for malignant neoplasm of prostate Category: Medical Plan: PSA?is?within?normal?limits.??He?has?seen?Dr.?Variant?past?and?can?follow-up?as?needed Orders: Orders Lipid Panel Today E78.5 - Hyperlipidemia, unspecified, Z00.00 - Encounter for general adult medical examination without abnormal findings Comprehensive [place]. Panel Fast Today E78.5 - Hyperlipidemia, unspecified, Z00.00 - Encounter for general adult medical examination without abnormal findings Medications: New fluticasone propionate 50 mcg/actuation (Flonase Allergy Relief) administer into each nostril 1 spray intranasal Q12H 30 days 16 grams 2RF E78.5 - Hyperlipidemia, unspecified guaifenesin ER (Mucinex) 600 mg PO Q12H 30 days PRN 60 tabs 1RF congestion
[2024-09-20 09:54] VITALS: BP 110/58; PULSE 60; RESP 14; TEMP 36.6; O2SAT 95; BMI 30.6
== END 2024-09-20 10:39 | disposition home or self-care (01) ==
LOC: HO.HMCFM 09:40
PROVIDERS: PCP Family Medicine; Visit Provider Family Medicine
DX: R07.9 Chest pain, unspecified (principal); R09.81 Nasal congestion; E78.5 Hyperlipidemia, unspecified; Z12.5 Encounter for screening for malignant neoplasm of prostate

== ENCOUNTER → 2024-09-20 09:40 | Outpatient (BNVA) | payer MEDICARE, SELFPAY | PROVIDERS: PCP Family Medicine; Visit Provider Family Medicine | DX: R07.9 Chest pain, unspecified (principal); R09.81 Nasal congestion; E78.5 Hyperlipidemia, unspecified | CPT/HCPCS: 99212 ==

== ENCOUNTER 2024-12-21 10:05 | Outpatient (REF) | payer MEDICARE, SELFPAY ==
[2024-12-21 11:08] LABS: Appearance Urine Clear; Glucose Urine UA Negative (Negative); PH 5.5 (5.0-9.0); Specific Gravity - Urine 1.010 (1.005-1.025)
[2024-12-21 12:42] LABS: Alanine Aminotransferase 26 U/L (0-40); Albumin Level 4.4 g/dL (3.5-5.0); Alkaline Phosphatase 54 U/L (39-117); Anion Gap 11 (12-20); Aspartate Amino Transferase 35 U/L (5-37); Blood Urea Nitrogen 11 mg/dL (9-16); Calcium 9.2 mg/dL (8.4-10.2); Carbon Dioxide 28 mmol/L (22-29); Chloride 106 mmol/L (96-108); Cholesterol 161 mg/dL (<200); Estimated Glomerular Filt Rate > 60; HDL Cholesterol 39 mg/dL (>40); Potassium 3.7 mmol/L (3.3-5.1); Sodium 141 mmol/L (135-145); Total Protein 6.6 g/dL (6.5-8.0); Triglycerides 70 mg/dL (<150)
== END 2024-12-21 10:06 | disposition home or self-care (01) ==
LOC: HO.WFDLDS 10:05
PROVIDERS: Visit Provider Family Medicine
DX: Z00.00 Encounter for general adult medical examination without abnormal findings (principal); E78.5 Hyperlipidemia, unspecified
CPT/HCPCS: 36415; 80053; 80061; 81003

== ENCOUNTER 2024-12-30 14:42 | Outpatient (AMB) | payer MEDICARE, SELFPAY ==
--- NOTE | 2024-12-30 15:00 | MHC.OFFVIS ---
Intake Visit Reasons: Urinary Urgency/ Nocturia Intake Note: Patient is present for urinary urgency/Nocturia Urology Med: None Antibiotic Allergy: None Blood Thinner: None Television Servicer Required: Yes Television Servicer Language: Serbian Accompanied by: Self / Same As Patient Allergies Seasonal Allergies Allergy (Verified 12/30/24 15:01) Itchy Eyes Medication List - Last Reconciled 12/30/24 by Shae Rodriguez MD back brace As directed fluticasone propionate 50 mcg/actuation (Flonase Allergy Relief) 1 spray intranasal Q12H 30 days guaifenesin ER (Mucinex) 600 mg PO Q12H PRN 30 days miscellaneous medical supply Right AFO, As directed, 999 days miscellaneous medical supply Lumbar Support Belt, Daily As directed, 999 days tolterodine ER 4 mg PO DAILY PFSH Medical History Lumbar spondylosis Tubular adenoma Cataract Sinusitis SOB (shortness of breath) Lower back pain Hip pain, left RLS (restless legs syndrome) BPH (benign prostatic hyperplasia) Annual physical exam Rash Hearing loss Surgical History Hx of colonoscopy History of cataract surgery Family History Mother Diabetes Father Diabetes Liver cancer Social History Household Members Other:: , s/p CVA Housing: House Are you a primary healthcare management to a significant other at home: Yes ( s/p CVA) Patient Tobacco Use Status: Never used Tobacco e-Cigarette/Vaping Use: Never Used Second Hand Smoke Exposure: No service: No Current occupational status: retired Current occupational exposures/hazards: No Cognitive needs: No Hearing needs: Yes (hearing) Vision needs: Yes (reading glasses) Review of Systems Const All systems reviewed & are unremarkable except as noted in HPI and below Reports no additional complaints Eyes Reports no additional complaints ENT Reports no additional complaints Card Reports no additional complaints Resp Reports no additional complaints GI Reports no additional complaints Reports as per HPI Musc Reports no additional complaints Skin/Breast Reports system reviewed and no additional complaints, except as documented Neuro Reports no additional complaints Psych Reports no additional complaints Endo Reports no additional complaints Bonifacio/Lymph Reports no additional complaints Aller/Immun Reports no additional complaints Results AMB Urinalysis, Automated UA Leukoctes 0 Tammy/uL Last Edit by Carmen Sheridantiz on 12/30/24 17:09 UA Nitrite Negative Last Edit by Carmen Sheridantiz on 12/30/24 17:09 UA Urobilinogen 3.5 mg/dL Last Edit by Carmen Sheridantiz on 12/30/24 17:09 UA Protein 0 mg/dL Last Edit by Carmen Sheridantiz on 12/30/24 17:09 UA pH 7.0 Last Edit by Carmen Sheridantiz on 12/30/24 17:09 UA Blood 0 Frankie/uL Last Edit by Carmen Sheridantiz on 12/30/24 17:09 UA Specific [place] 1.010 Last Edit by Carmen Sheridantiz on 12/30/24 17:09 UA Ketone Negative Last Edit by Carmen Sheridantiz on 12/30/24 17:09 UA Bilirubin 0 mg/dL Last Edit by Carmen Sheridantiz on 12/30/24 17:09 UA Glucose 0 mg/dL Last Edit by Carmen Sheridantiz on 12/30/24 17:09 Assessment & Plan Assessment & Plan (1) Urgency-frequency syndrome: Code(s): N32.81 - Overactive bladder Category: Medical Plan detrol 4mg daily Orders: Orders US retroperitoneal comp Today N32.81 - Overactive bladder AMB Urinalysis Automated Today Z13.9 - Encounter for screening, unspecified Medications: New tolterodine ER 4 mg PO DAILY 30 caps 2RF Patient Instructions: The patient had an opportunity to ask questions regarding treatment plan. The patient expressed understanding and agreement with the above treatment plan. The patient is aware they should contact our office by phone for worsening of their current condition or the appearance of new symptoms. Compliance is encouraged with any medications and followup testing that is ordered. It is a privilege to be allowed the opportunity to participate in the urologic care of your patient. If you have any questions or concerns regarding treatment for the above conditions please do not hesitate to contact me. The office telephone contact is [phone]. This note is constructed in part using voice recognition software. While every effort has been made to ensure accuracy hairspring i inspector errors may have been included. Yours sincerely, Shae Rodriguez MD Scribe Plan - Not visible on output: Patient was informed and verbally consented to the use of an ambient scribe for clinic note documentation during this visit. Coding Diagnoses Urgency-frequency syndrome N32.81
== END 2024-12-30 15:48 | disposition home or self-care (01) ==
LOC: HO.HUSH 14:43
PROVIDERS: PCP Family Medicine; Visit Provider Urology
DX: Z13.9 Encounter for screening, unspecified (principal)

== ENCOUNTER → 2024-12-30 14:42 | Outpatient (BNVA) | payer MEDICARE, SELFPAY | PROVIDERS: PCP Family Medicine; Visit Provider Urology | DX: N32.81 Overactive bladder (principal) | CPT/HCPCS: 81003 ==

== ENCOUNTER 2025-01-05 15:26 | Outpatient (AMB) | payer MEDICARE, SELFPAY ==
--- NOTE | 2025-01-05 15:30 | A.OFFPC_ITS ---
Vital Signs 01/05/25 15:42 Height 6 ft 2 in Weight 247 lb BMI 31.7 BP 118/82 Blood Pressure Location Lt brachial Position Sitting Respiration 15 Pulse 75 Pulse Source Pulse Oximeter Temp 97.9 F Temp Source Temporal Artery Scan Pulse Oximetry (%) 95 Oxygen Delivery Method Room Air Intake Visit Reasons: f/u HLD, labs Intake Note: Oswaldo presents in the office today to follow up on his labs. Allergies Seasonal Allergies Allergy (Verified 01/05/25 15:34) Itchy Eyes Medication List - Last Reconciled 01/05/25 by Amilcar Dao MD back brace As directed magnesium oxide 200 mg PO DAILY 30 days miscellaneous medical supply Right AFO, As directed, 999 days miscellaneous medical supply Lumbar Support Belt, Daily As directed, 999 days trospium 20 mg PO ONCE Tobacco use date assessed: 01/05/25 Dental Screening Dental Screen Date: 01/05/25 Did you have a dental visit in the last 12 months?: No Did you have a dental problem in the last 6 months where you did not have access to dental care?: No Was dental information given to patient?: Patient declined HPI f/u HLD, labs HPI Details 74 y/o male presents to f/u HLD, chronic conditions. Labs drawn 12/21/24. Reviewed labs with pt. Triglycerides 70. TC 161. LDL 108. HDL low at 39. Continues to f/u with urology for urinary symptoms. [facility] Medical History Lumbar spondylosis Tubular adenoma Cataract Sinusitis SOB (shortness of breath) Lower back pain Hip pain, left RLS (restless legs syndrome) BPH (benign prostatic hyperplasia) Annual physical exam Rash Hearing loss Surgical History Hx of colonoscopy History of cataract surgery Family History Mother Diabetes Father Diabetes Liver cancer Social History (Updated 01/05/25 @ 15:42 by Noemi Escobedo MA) Household Members Other:: , s/p CVA Housing: House Are you a primary care management specialist to a significant other at home: Yes ( s/p CVA) Alcohol intake: never Patient Tobacco Use Status: Never used Tobacco e-Cigarette/Vaping Use: Never Used Second Hand Smoke Exposure: No service: No Current occupational status: retired Current occupational exposures/hazards: No Cognitive needs: No Hearing needs: Yes (hearing) Vision needs: Yes (reading glasses) Questionnaire Thrive Questionnaire Date Thrive assessed: 06/04/23 TAMMY-7 AMB Questionnaire TAMMY-7 Date TAMMY - 7 assessed: 06/04/23 Source: Developed by Drs. Ming Hamilton, Vani Pike, Gerald Sofia and colleagues, with an educational kusum from [employer]. Review of Systems Const Denies chills, Denies fatigue, Denies fever(s), Denies headache(s) and Denies weakness ENT Denies dizziness and Denies headache(s) Card Denies dyspnea Resp Denies cough, Denies dyspnea, Denies wheezing and Denies other (shortness of breath) Musc Denies numbness and Denies tingling Neuro Denies dizziness, Denies headache(s), Denies numbness, Denies tingling and Denies weakness Psych Denies anxiety and Denies depression Endo Denies fatigue Aller/Immun Denies wheezing Physical exam (Primary Care) Vital Signs: Last Vital Signs Temp 97.9 F 01/05/25 15:42 Pulse 75 01/05/25 15:42 Resp 15 01/05/25 15:42 BP 118/82 01/05/25 15:42 Pulse Ox 95 01/05/25 15:42 Oxygen Delivery Method Room Air 01/05/25 15:42 BMI result Body Mass Index 31.7 Tobacco/Smoking Status: Tobacco use Status Tobacco use date assessed 01/05/25 01/05/25 15:42 Patient Tobacco Use Status Never used Tobacco 01/05/25 15:42 e-Cigarette/Vaping Use Never Used 01/05/25 15:42 Thrive Assessment: Date of Thrive Assessment Date Thrive assessed 06/04/23 01/05/25 15:31 Const General: well developed; No acute distress Nutritional Appearance: well nourished Orientation/consciousness: patient oriented x3 HENMT Head: Yes normocephalic and Yes atraumatic Eyes General: appearance normal, both eyes and all related structures Pupils: Equal, round and reactive pupils present EOM: EOMs intact bilaterally Resp Effort & Inspection: normal respiratory effort Neuro General: patient oriented x3 and gait normal Cranial nerves: Yes Equal, round and reactive pupils present Psych Affect: normal affect Coding Level of Care Code Est Pt Level 3 (57430) Diagnoses Hyperlipidemia E78.5 Low HDL (under 40) E78.6 Urgency-frequency syndrome N32.81 Assessment & Plan Assessment & Plan (1) Hyperlipidemia: Code(s): E78.5 - Hyperlipidemia, unspecified Category: Medical Plan: Lipids continue to improve. LDL now 108. Just a little above goal of less than 100. HDL mildly low at 39 Encouraged diet low in saturated fats and cholesterol. Encouraged exercise and weight loss. Will continue to monitor (2) Low HDL (under 40): Code(s): E78.6 - Lipoprotein deficiency Category: Medical Plan: As above (3) Urgency-frequency syndrome: Code(s): N32.81 - Overactive bladder Category: Medical Plan: Followed by Urology and just started medication recently. He is not sure if it is helping him. Follow-up with urology as recommended Orders: Orders Magnesium Today Amilcar Dao MD M79.89 - Other specified soft tissue disorders Basic Metabolic Panel Today Amilcar Dao MD M79.89 - Other specified soft tissue disorders, Z00.00 - Encounter for general adult medical examination without abnormal findings Medications: New magnesium oxide 200 mg PO DAILY 30 tabs 3RF 30 days Amilcar Dao MD Changed From trospium administer on an empty stomach 20 mg PO BID 30 tabs 2RF To trospium administer on an empty stomach 20 mg PO ONCE Shae Rodriguez MD
[2025-01-05 15:42] VITALS: BP 118/82; PULSE 75; RESP 15; TEMP 36.6; O2SAT 95; BMI 31.7
== END 2025-01-05 16:17 | disposition home or self-care (01) ==
LOC: HO.HMCFM 15:26
PROVIDERS: PCP Family Medicine; Visit Provider Family Medicine
DX: E78.5 Hyperlipidemia, unspecified (principal); E78.6 Lipoprotein deficiency; N32.81 Overactive bladder

== ENCOUNTER → 2025-01-05 15:26 | Outpatient (BNVA) | payer MEDICARE, SELFPAY | PROVIDERS: PCP Family Medicine; Visit Provider Family Medicine | DX: E78.6 Lipoprotein deficiency (principal); E78.5 Hyperlipidemia, unspecified; N32.81 Overactive bladder; M79.89 Other specified soft tissue disorders | CPT/HCPCS: 99212 ==

== ENCOUNTER 2025-03-24 12:50 | Outpatient (REF) | payer MEDICARE, SELFPAY ==
--- NOTE | ~2025-03-24 | US_ITS ---
EXAMINATION: US RETROPERITONEUM HISTORY: N32.81 - Overactive bladder TECHNIQUE: Real-time grayscale ultrasound imaging of the kidneys was performed and images were reviewed. COMPARISON: Comparison is made with the prior ultrasound of the bladder dated 08/21/2021. FINDINGS: Right kidney: The right kidney measures 10.2 x 5.1 x 6.3 cm. Renal parenchymal echotexture and thickness are normal. There are no masses. There is no hydronephrosis or renal calculi. Left Kidney: The left kidney measures 10.6 x 5.6 x 5.0 cm. Renal parenchymal echotexture and thickness are normal. There are no masses. There is no hydronephrosis or renal calculi. The urinary bladder is unremarkable. A right ureteral jet is identified. A left ureteral jet is not identified. Before voiding, the urinary bladder measured 6.6 x 5.6 x 7.8 cm, for an estimated volume of 151 mL. After voiding, the urinary bladder measured 3.3 x 3.7 x 3.6 cm, for an estimated volume of 23 mL. The prostate measures 3.1 x 3.6 x 4.3 cm, for an estimated volume of 25.2 mL. US/US retroperitoneal comp IMPRESSION: 1. Unremarkable retroperitoneal ultrasound. 2. Post void bladder residual of 23 mL. 3. Prostate volume of 25.2 mL. Electronically signed by: Ming Reed MD 03/24/2025 01:46 PM EDT
== END 2025-03-24 12:51 | disposition home or self-care (01) ==
LOC: HO.US 12:50
PROVIDERS: PCP Family Medicine; Visit Provider Urology
DX: N32.81 Overactive bladder (principal)
CPT/HCPCS: 76770

== ENCOUNTER → 2025-03-24 12:53 | Outpatient (BNV) | payer MEDICARE, SELFPAY | PROVIDERS: PCP Family Medicine; Visit Provider Radiology Diagnostic Radiology | DX: N32.81 Overactive bladder (principal) | CPT/HCPCS: 76770 ==

== ENCOUNTER 2025-05-24 12:07 | Outpatient (REF) | payer MEDICARE, SELFPAY ==
[2025-05-24 18:17] LABS: Appearance Urine Turbid; Glucose Urine UA Negative (Negative); PH 5.5 (5.0-9.0); Specific Gravity - Urine 1.020 (1.005-1.025)
[2025-05-24 19:12] LABS: Alanine Aminotransferase 25 U/L (0-40); Albumin Level 4.8 g/dL (3.5-5.0); Alkaline Phosphatase 55 U/L (39-117); Anion Gap 10 (12-20); Aspartate Amino Transferase 30 U/L (5-37); Blood Urea Nitrogen 14 mg/dL (9-16); Calcium 9.3 mg/dL (8.4-10.2); Carbon Dioxide 25 mmol/L (22-29); Chloride 108 mmol/L (96-108); Cholesterol 225 mg/dL (<200); Estimated Glomerular Filt Rate > 60; HDL Cholesterol 45 mg/dL (>40); Iron 145 mcg/dL (45-160); Magnesium 2.1 mg/dL (1.6-2.6); Percent Iron Saturation 55 % (15-50); Potassium 4.0 mmol/L (3.3-5.1); Sodium 139 mmol/L (135-145); Total Iron Binding Capacity 262 mcg/dL (228-428); Total Protein 7.3 g/dL (6.5-8.0); Triglycerides 106 mg/dL (<150); Unsaturated Iron Binding 117 ug/dL
== END 2025-05-24 12:08 | disposition home or self-care (01) ==
LOC: HO.WFDLDS 12:07
PROVIDERS: PCP Family Medicine; Visit Provider Family Medicine
DX: H57.89 Other specified disorders of eye and adnexa (principal); K64.9 Unspecified hemorrhoids; R29.898 Other symptoms and signs involving the musculoskeletal system; E78.5 Hyperlipidemia, unspecified; Z13.31 Encounter for screening for depression; Z13.39 Encounter for screening examination for other mental health and behavioral disorders; Z00.00 Encounter for general adult medical examination without abnormal findings; N32.81 Overactive bladder; N40.1 Benign prostatic hyperplasia with lower urinary tract symptoms; R35.1 Nocturia
CPT/HCPCS: 36415; 51798; 80053; 80061; 81003; 83540; 83735; 84443; 96127; 99212

== ENCOUNTER 2025-05-24 12:07 | Outpatient (AMB) | payer MEDICARE, SELFPAY ==
--- NOTE | 2025-05-24 12:10 | A.OFFPC_ITS ---
Vital Signs 05/24/25 12:33 Height 6 ft 2 in Weight 250 lb 6 oz BMI 32.1 BP 126/70 Blood Pressure Location Lt brachial Position Sitting Respiration 16 Pulse 62 Pulse Source Pulse Oximeter Temp 97.9 F Temp Source Oral Pulse Oximetry (%) 95 Oxygen Delivery Method Room Air Intake Visit Reasons: f/u chronic conditions - see comments Intake Note: patient here for follow up on chronic conditions House Mover Helper Required: Yes House Mover Helper Language: Portuguese House Mover Helper Name: w/ hospital assisted living care manager/dani Information Interpreted: non-clinical & clinical Allergies Seasonal Allergies Allergy (Verified 05/24/25 12:29) Itchy Eyes Medication List - Last Reconciled 05/24/25 by Amilcar Dao MD back brace As directed magnesium oxide 200 mg PO DAILY 30 days miscellaneous medical supply Right AFO, As directed, 999 days miscellaneous medical supply Lumbar Support Belt, Daily As directed, 999 days olopatadine 0.7% 1 drp ophthalmic (eye) DAILY PRN 30 days trospium 20 mg PO ONCE Tobacco use date assessed: 05/24/25 Fall risk assessment: No Falls in past year Last assessed Fall Risk: 05/24/25 Dental Screening Dental Screen Date: 05/24/25 Did you have a dental visit in the last 12 months?: No Did you have a dental problem in the last 6 months where you did not have access to dental care?: No Was dental information given to patient?: No (pt has partials) HPI f/u chronic conditions - see comments HPI Details 74 y/o male presents to f/u chronic cond itions. No recent labs to review. They note pt not been feeling well in April but had been feeling improved since . Complaints of bilateral eye irritation, all of April. Complaints of hemorrhoids. [facility], [facility] Medical History Lumbar spondylosis Tubular adenoma Cataract Sinusitis SOB (shortness of breath) Lower back pain Hip pain, left RLS (restless legs syndrome) BPH (benign prostatic hyperplasia) Annual physical exam Rash Hearing loss Surgical History Hx of colonoscopy History of cataract surgery Family History Mother Diabetes Father Diabetes Liver cancer Social History (Updated 01/05/25 @ 15:42 by Noemi Escobedo MA) Household Members Other:: , s/p CVA Housing: House Are you a primary pet care associate to a significant other at home: Yes ( s/p CVA) Alcohol intake: never Patient Tobacco Use Status: Never used Tobacco e-Cigarette/Vaping Use: Never Used Second Hand Smoke Exposure: No service: No Current occupational status: retired Current occupational exposures/hazards: No Cognitive needs: No Hearing needs: Yes (hearing) Vision needs: Yes (reading glasses) Questionnaire PHQ-9 Over the last 2 weeks, how often have you been bothered by any of the following problems? 1. Little interest or pleasure in doing things: not at all 2. Feeling down, depressed, or hopeless: not at all 3. Trouble falling or staying asleep, or sleeping too much: nearly every day 4. Feeling tired or having little energy: nearly every day 5. Poor appetite or overeating: several days 6. Feeling bad about yourself - or that you are a failure or have let yourself or your family down: several days 7. Trouble concentrating on things, such as reading the newspaper or watching television: not at all 8. Moving or speaking so slowly that other people could have noticed. Or the opposite - being so fidgety or restless that you have been moving around a lot more than usual: not at all 9. Thoughts that you would be better off or of hurting yourself in some way: not at all Total score: 8 Depression Screening Interpretation: Positive Depression Screening Done: Yes 90972 - PHQ-9 Billing: Yes Source: Developed by Drs. Ming Hamilton, Vani Pike, Gerald Sofia and colleagues, with an educational kusum from [employer]. Thrive Questionnaire Date Thrive assessed: 05/24/25 TAMMY-7 AMB Questionnaire TAMMY-7 Date TAMMY - 7 assessed: 05/24/25 Feeling nervous, anxious, or on edge: 0 = Not at all Not being able to stop or control worryin = Not at all Worrying too much about different things: 0 = Not at all Trouble relaxin = Not at all Being so restless that it is hard to sit still: 0 = Not at all Becoming easily annoyed or irritable: 0 = Not at all Feeling afraid as if something awful might happen: 0 = Not at all Total TAMMY-7 score (0-4 normal; 5-9 mild; 10-14 moderate; 15-21 severe): 0 Source: Developed by Drs. Ming Hamilton, Vani Pike, Gerald Sofia and colleagues, with an educational kusum from [employer]. TAMMY-7 Assessment Billing TAMMY-7 Assessment Tool: TAMMY-7 Assessment 60382 Review of Systems Const Denies chills, Denies fatigue, Denies fever(s), Denies headache(s) and Denies weakness ENT Denies dizziness and Denies headache(s) Card Denies dyspnea Resp Denies cough, Denies dyspnea, Denies wheezing and Denies other (shortness of breath) Musc Denies numbness and Denies tingling Neuro Denies dizziness, Denies headache(s), Denies numbness, Denies tingling and Denies weakness Psych Denies anxiety and Denies depression Endo Denies fatigue Aller/Immun Denies wheezing Physical exam (Primary Care) Vital Signs: Last Vital Signs Temp 97.9 F 05/24/25 12:33 Pulse 62 05/24/25 12:33 Resp 16 05/24/25 12:33 BP 126/70 05/24/25 12:33 Pulse Ox 95 05/24/25 12:33 Oxygen Delivery Method Room Air 05/24/25 12:33 BMI result Body Mass Index 32.1 Tobacco/Smoking Status: Tobacco use Status Tobacco use date assessed 05/24/25 05/24/25 12:35 Patient Tobacco Use Status Never used Tobacco 05/24/25 12:11 e-Cigarette/Vaping Use Never Used 05/24/25 12:11 PHQ-9: PHQ-9 Score PHQ-9: Total score 8 05/24/25 12:37 Depression Screening Interpretation: Positive Thrive Assessment: Date of Thrive Assessment Date Thrive assessed 05/24/25 05/24/25 12:37 Const General: well developed; No acute distress Nutritional Appearance: well nourished Orientation/consciousness: patient oriented x3 HENMT Head: Yes normocephalic and Yes atraumatic Eyes General: appearance normal, both eyes and all related structures Pupils: Equal, round and reactive pupils present EOM: EOMs intact bilaterally Resp Effort & Inspection: normal respiratory effort Neuro General: patient oriented x3 and gait normal Cranial nerves: Yes Equal, round and reactive pupils present Psych Affect: normal affect Coding Level of Care Code Est Pt Level 5 (01658) Diagnoses Eye irritation H57.89 Hemorrhoids K64.9 Screening for prostate cancer Z12.5 Additional Codes TAMMY-7 Assessment Billing - TAMMY-7 Assessment Tool: TAMMY-7 Assessment 63316 ([id number]) PHQ-9 - 16928 - PHQ-9 Billing: Yes ([id number]) Assessment & Plan Assessment & Plan (1) Eye irritation: Code(s): H57.89 - Other specified disorders of eye and adnexa Category: Medical Plan: Over a month of itching burning and dry eyes No discharge Appears to be allergic conjunctivitis He already has an appointment with an eye doctor Sending a script for olopatadine which he can try Follow-up with your eye doctor (2) Hemorrhoids: Code(s): K64.9 - Unspecified hemorrhoids Category: Medical Plan: Will send script for Proctosol which he can use when he gets a flare-up Has a very large hemorrhoid > 2 cm He would like a referral to surgery - referred (3) Screening for prostate cancer: Code(s): Z12.5 - Encounter for screening for malignant neoplasm of prostate Category: Medical Plan: Followed by urology urinary frequency Most recent PSA was within range Plan Time > 45 min He will return in about 6 weeks to follow-up lab work. Orders: Orders Comprehensive Met. Panel Today R29.898 - Other symptoms and signs involving the musculoskeletal system TSH reflex Free T4 Today R29.898 - Other symptoms and signs involving the musculoskeletal system, Z00.00 - Encounter for general adult medical examination without abnormal findings Magnesium Today R29.898 - Other symptoms and signs involving the musculoskeletal system IRON PROFILE Today R29.898 - Other symptoms and signs involving the musculoskeletal system Lipid Panel Today E78.5 - Hyperlipidemia, unspecified, Z00.00 - Encounter for general adult medical examination without abnormal findings UA CC w/rflx Micro + Cult Today Z00.00 - Encounter for general adult medical examination without abnormal findings Referrals General Surgery Referral K64.9 - Unspecified hemorrhoids Medications: New olopatadine 0.7% 1 drp ophthalmic (eye) DAILY PRN 5 mL 3RF itching/irritation 30 days hydrocortisone 2.5% (Proctosol HC) 1 appl OR BID-QID PRN 30 grams 1RF hemorrhoids 30 days
[2025-05-24 12:33] VITALS: BP 126/70; PULSE 62; RESP 16; TEMP 36.6; O2SAT 95; BMI 32.1
--- OUTSIDE RECORDS SUMMARY | 2025-05-24 14:27 | XMS_ITS | Data Portability ---
Author Organization [place] [facility], Allergy Address [address] [place] [id number] Care Team Providers Care Independent Living Instructor Name Role Phone ROSENDO GUNN Primary Care Provider Assessment Encounter Date Assessment Date Assessment LastModified by Organization Details LastModified Time 03/04/2024 03/04/2024 73-year-old male presents today for evaluation of voice changes, particular with singing and also is noting nasal congestion and postnasal drip. He did have sensitivities on allergy testing. He has not been on any nasal steroids so I did recommend a trial of fluticasone. I did not see any active nasal drip on flexible laryngoscopy. There was some mild true cord edema. We discussed that LPR is also a common contributing factor to the symptoms he describes. If no improvement with the above recommendations, would try short course of a PPI. [email or web address] Not available 03/14/2024 07:50:15 Plan of Treatment Reminders Order Date Submit Date Provider Last Modified By Organization Details Last Modified Time Details Appointments None recorded. Lab None recorded. Referral None recorded. Procedures None recorded. Surgeries None recorded. Imaging None recorded. Medication Orders Flonase Allergy Relief 50 mcg/actua tion nasal spray,[facility], [address] [facility], [place], [address], 13:21:07 Patient TargetsNo targets recorded. Patient InstructionsNo instructions recorded. Reason for Referral None Reported. Problems Name Problem SNOMED Code Status Onset Date Resolution Date Notes Provider Name and Address Organization Details Recorded Time Nasal congestion 08938502 Active CORNELIO WAGNER MD [address], [phone], [facility] - [facility] 4 13:18:00 Posterior rhinorrhea 10558716 Active 024 CORNELIO WAGNER MD [address] [address], [place], [phone], [facility] - [facility] 4 13:18:05 Dysphonia 94194198 Active 024 CORNELIO WAGNER MD [address] [address], [place], [phone], [facility] - [facility] [place] 4 07:49:58 Problem Notes None recorded. Procedures Surgical History Date Name Laterality Status Provider Name and Address Organization Details Recorded Time 03/04/20 24 Fiberoptic Laryngoscopy (Comprehensive) completed CORNELIO WAGNER MD [address] [address], [place], [address], [facility] 03/14/2024 07:48:30 Imaging Results None recorded. Procedure Notes None recorded. Medical Equipment None Reported. Allergies Allergen ID Allergen Name Allergen Category Reaction Reaction Severity Criticality Documentation Date Start Date Code Code System Note Provider Name and Address Organization Details Recorded Time 389707 Product containin g penicilli n (product) medicatio n Not available Not available Not available 03/04/2024 [address] - [facility] 4 14:45:55 Medications Name Sig Start Date Stop Date Status Note LastModified by Organization Details LastModified Time tolterodine ER 2 mg capsule,ext ended release 24 hr TAKE 1 CAPSULE BY MOUTH ONCE DAILY active Not Available Not Available No t Available tolterodine ER 4 mg capsule,ext ended release 24 hr TAKE 1 CAPSULE BY MOUTH ONCE DAILY 03/04 completed Not Available Not Available Not Available omeprazole 40 mg capsule,del ayed release TAKE 1 CAPSULE BY MOUTH ONCE DAILY active Not Available Not Available No t Available prednisolon e acetate 1 % eye drops,suspe nsion INSTILL 1 DROP INTO EACH EYE TWICE DAILY FOR 2 WEEKS active Not Available Not Available No t Available erythromyci n 5 mg/gram (0.5 %) eye ointment INSTILL ONE-HALF INCH STRIP INTO AFFECTED EYE THREE TIMES DAILY active Not Available Not Available No t Available Gentle Laxative (bisacodyl) 5 mg tablet,bailey yed release TAKE 2 TABLETS BY MOUTH AT BEDTIME active Not Available Not Available No t Available polymyxin B sulfate 10,000 unit-trimet hoprim 1 mg/mL eye drops INSTILL 1 DROP INTO EACH EYE 4 TIMES DAILY WHILE AWAKE FOR 5 DAYS DO NOT EXCEED 6 DOSES IN 24 HOURS active Not Available Not Available No t Available fluticasone propionate 50 mcg/actuati on nasal spray,suspe nsion [place] 2 sprays every day by intranasa l route. active Not Available Not Available No t Available tadalafil 5 mg tablet TAKE 1 TABLET BY MOUTH ONCE DAILY FOR SEXUAL ACTIVITY active Not Available Not Available No t Available magnesium 400 mg (as magnesium oxide) tablet TAKE 1 TABLET BY MOUTH ONCE DAILY active Not Available Not Available No t Available Vitals Date Recorded Body height Body mass index (BMI) Body weight Provider Name and Address Organization Details Last Updated DateTime 03/04/2024 187.96 cm 33 kg/m2 076096.24 g Rafaela Sullivan [place] - [facility] 03/04/2024 12:55:11 Social History None recorded. Functional Status None recorded. Mental Status None recorded. Family History Nothing Reported. Medical History No medical history recorded. Past Encounters Encounter ID Performer Location Encounter Start Date Encounter Closed Date Diagnosis/Indication Diagnosis SNOMED-CT Code Diagnosis ICD10 Code Diagnosis IMO Codes Diagnosis Note [id number] CORNELIO WAGNER MD [facility] [address] [phone] 03/04/2024 12:23:06 03/04/2024 14:00:45 Nasal congestion 67817621 R09.81 Posterior rhinorrhea 758 44167 R09.82 Dysphonia 25234807 R49.9 Health Concerns Section Related Observation LastModified by Organization Detai ls LastModified Time None Recorded Concern Status LastModified by Organization Details LastModified Time None Recorded Advance Directives Directive None Recorded Payers Insurance Date Sequence Insurance Name Policy Number Policy Olguin Covered Member ID Olguin Member ID Guarantor Name 11/10/2024 2 MEDICARE B-[place]: [employer] Oswaldo Hernandez [id number] Oswaldo Hernandez 05/31/2024 1 [facility]: MEDICARE HMO BLUE (MEDICARE REPLACEMENT HMO) [id number] Oswaldo Hernandez [id number] Oswaldo Hernandez Notes Date Note Type Note Provider Name and Address Organization Details Recorded Time 03/04/2024 text/html ROS as noted in the HPI 73 yo M presents today for voice changes. Used to be able to sing at [employer], no longer since winter. No illness. No sore throat. No trouble swallowing but can get a little pain. Phlegm all the time, runny nose, ear drainage on the left, eyes tearing, blockage on the left, nasal congestion. Gets sinus infections. Has tried tylenol cold and sinus. No nasal steroids. 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 Has been to [facility] had some blood work showing rossi pollen, dust mite, cockroaches, pollen to certain flower. Recommended inhaler, not yet tried. Had lung and breathing tests. Some growth (?)between esophagus and trachea. Had testing at [place]. Throat clearing. No heartburn. CORNELIO WAGNER MD [address] [place] [address], [place], [address], [place] - [facility] 03/14/2024 07:50:29
== END 2025-05-24 13:37 | disposition home or self-care (01) ==
LOC: HO.HMCFM 12:08
PROVIDERS: PCP Family Medicine; Visit Provider Family Medicine
DX: H57.89 Other specified disorders of eye and adnexa (principal); K64.9 Unspecified hemorrhoids; Z12.5 Encounter for screening for malignant neoplasm of prostate

== ENCOUNTER 2025-05-24 14:30 | Outpatient (AMB) | payer MEDICARE, SELFPAY ==
--- NOTE | 2025-05-24 14:31 | MHC.OFFVIS ---
Intake Visit Reasons: Follow up/US (set)UA+PVR) Intake Note: Patient is present for a follow up/US 03/24 [facility] Urology Med: None Antibiotic Allergy: None Blood Thinner: None PVR:0ml Mixed Crop Farmer Services: Mixed Crop Farmer Present Accompanied by: Self / Same As Patient Allergies Seasonal Allergies Allergy (Verified 05/24/25 14:32) Itchy Eyes HPI Comments Details: 05/24/2025 the patient presents seen 12/31/2019 and he was sent for an ultrasound he was started on trospium History of Present Illness The patient is a 74 year old individual presenting for a follow-up visit on 05/24/25 regarding overactive bladder symptoms. The patient complains of nocturia, waking 6 to 7 times per night, which results in exhaustion. The patient also experiences significant daytime urinary urgency with episodes of incontinence, which can be triggered by stimuli such as turning on a water kettle. Following a previous visit on 12/30/24, the patient was started on Trospium once daily. The patient is unsure if the medication is effective and reports confusion over pharmacy instructions suggesting twice-daily dosing. A recent ultrasound of the kidneys was normal, and the prostate was found to be of a normal size. Blood work was also reported as normal. Results - Ultrasound: The kidneys appeared normal, and the prostate was not enlarged. - Labs: Blood work was reported as normal. Plan 1. Overactive Bladder - The patient's symptoms of nocturia and urgency persist despite treatment with Trospium once daily, and the underlying cause is attributed to bladder spasms rather than prostate enlargement. - The dosage of Trospium will be increased to twice daily to improve symptom control. - A new prescription for Trospium with refills has been sent to the pharmacy. - The patient was counseled on the medication's mechanism, which involves relaxing bladder receptors to reduce spasms and urgency. - Instructions were provided to take Trospium on an empty stomach for optimal absorption, either one hour before eating or two hours after. - The recommended dosing schedule is once in the morning one hour before breakfast and the second dose in the evening two hours after supper or at bedtime. - The importance of consistent, daily medication use for maximum efficacy was emphasized. - Expectations were set for a realistic goal of reducing nocturia to approximately two episodes per night. - A follow-up appointment is scheduled for six months to re-evaluate. 12/30/24-FU History of Present Illness - The patient is a 74-year-old male presenting with urinary incontinence and nocturia. - Reports urinary incontinence when preparing drinks and frequent urination at night. - Attributes the problem to bladder dysfunction rather than hormonal issues. - Previously prescribed Myrbetriq and oxybutynin but did not take them due to high costs. Results - PSA levels were normal. Plan- - Schedule an ultrasound of the bladder, prostate, and kidneys for further evaluation. - follow-up in 10 weeks to discuss ultrasound results and medication efficacy. [facility] Medical History Lumbar spondylosis Tubular adenoma Cataract Sinusitis SOB (shortness of breath) Lower back pain Hip pain, left RLS (restless legs syndrome) BPH (benign prostatic hyperplasia) Annual physical exam Rash Hearing loss Surgical History Hx of colonoscopy History of cataract surgery Family History Mother Diabetes Father Diabetes Liver cancer Social History Household Members Other:: , s/p CVA Housing: House Are you a primary customer care consultant to a significant other at home: Yes ( s/p CVA) Alcohol intake: never Patient Tobacco Use Status: Never used Tobacco e-Cigarette/Vaping Use: Never Used Second Hand Smoke Exposure: No service: No Current occupational status: retired Current occupational exposures/hazards: No Cognitive needs: No Hearing needs: Yes (hearing) Vision needs: Yes (reading glasses) Review of Systems Const All systems reviewed & are unremarkable except as noted in HPI and below Reports no additional complaints Eyes Reports no additional complaints ENT Reports no additional complaints Card Reports no additional complaints Resp Reports no additional complaints GI Reports no additional complaints Reports as per HPI Musc Reports no additional complaints Skin/Breast Reports system reviewed and no additional complaints, except as documented Neuro Reports no additional complaints Psych Reports no additional complaints Endo Reports no additional complaints Bonifacio/Lymph Reports no additional complaints Aller/Immun Reports no additional complaints Office Procedures Post Void Residual Post Residual Void Post Void Residual (PVR): 0 [id number]-[id number] Void Residual by ultrasound Results AMB Urinalysis, Automated UA Leukoctes 0 Tammy/uL Last Edit by Carmen Richard on 05/24/25 16:21 UA Nitrite Negative Last Edit by Carmen Sheridantiz on 05/24/25 16:21 UA Urobilinogen 0.2 mg/dL Last Edit by Carmen Sheridantiz on 05/24/25 16:21 UA Protein 15 mg/dL Last Edit by Carmen Sheridantiz on 05/24/25 16:21 UA pH 6.0 Last Edit by Carmen Sheridantiz on 05/24/25 16:21 UA Blood 0 Frankie/uL Last Edit by Carmen Sheridantiz on 05/24/25 16:21 UA Specific [place] 1.025 Last Edit by Carmen Sheridantiz on 05/24/25 16:21 UA Ketone Negative Last Edit by Carmen Sheridantiz on 05/24/25 16:21 UA Bilirubin 0 mg/dL Last Edit by Carmen Sheridantiz on 05/24/25 16:21 UA Glucose 0 mg/dL Last Edit by Carmen Sheridantiz on 05/24/25 16:21 Results Reviewed Results Reviewed: Date of Service: 03/24/25 EXAMINATION: US RETROPERITONEUM HISTORY: N32.81 - Overactive bladder TECHNIQUE: Real-time grayscale ultrasound imaging of the kidneys was performed and images were reviewed. COMPARISON: Comparison is made with the prior ultrasound of the bladder dated 08/21/2021. FINDINGS: Right kidney: The right kidney measures 10.2 x 5.1 x 6.3 cm. Renal parenchymal echotexture and thickness are normal. There are no masses. There is no hydronephrosis or renal calculi. Left Kidney: The left kidney measures 10.6 x 5.6 x 5.0 cm. Renal parenchymal echotexture and thickness are normal. There are no masses. There is no hydronephrosis or renal calculi. The urinary bladder is unremarkable. A right ureteral jet is identified. A left ureteral jet is not identified. Before voiding, the urinary bladder measured 6.6 x 5.6 x 7.8 cm, for an estimated volume of 151 mL. After voiding, the urinary bladder measured 3.3 x 3.7 x 3.6 cm, for an estimated volume of 23 mL. The prostate measures 3.1 x 3.6 x 4.3 cm, for an estimated volume of 25.2 mL. IMPRESSION: 1. Unremarkable retroperitoneal ultrasound. 2. Post void bladder residual of 23 mL. 3. Prostate volume of 25.2 mL. Assessment & Plan Assessment & Plan Orders: Orders AMB Post Void Residual by ultrasound Today N40.1 - Benign prostatic hyperplasia with lower urinary tract symptoms AMB Urinalysis Automated Today Z13.9 - Encounter for screening, unspecified Medications: Changed From trospium administer on an empty stomach 20 mg PO ONCE To trospium administer on an empty stomach, one hour before you eat or 2 hours after you eat 20 mg PO BID 60 tabs 5RF Coding CPT Codes Post Residual Void - PVR CPT Code: 69515-[id number] Void Residual by ultrasound ([id number])
== END 2025-05-24 15:14 | disposition home or self-care (01) ==
LOC: HO.HUSH 14:30
PROVIDERS: PCP Family Medicine; Visit Provider Urology
DX: Z13.9 Encounter for screening, unspecified (principal)